=== PATIENT | female | born 1985 | race Two or more races ===

== ENCOUNTER 2020-02-08 12:34 | Outpatient (REF) | payer OTHER, SELFPAY | END 2020-02-08 12:35 | disposition home or self-care (01) | LOC: HO.LAB 12:34 | PROVIDERS: PCP Internal Medicine; Visit Provider Internal Medicine | DX: Z20.828 Contact with and (suspected) exposure to other viral communicable diseases (principal) | CPT/HCPCS: 87635 ==

== ENCOUNTER 2020-02-21 14:02 | Outpatient (REF) | payer OTHER, SELFPAY | END 2020-02-21 14:03 | disposition home or self-care (01) | LOC: HO.LAB 14:02 | PROVIDERS: PCP Internal Medicine; Visit Provider Internal Medicine | DX: Z20.828 Contact with and (suspected) exposure to other viral communicable diseases (principal) | CPT/HCPCS: 87635 ==

== ENCOUNTER 2020-03-13 16:29 | Outpatient (REF) | payer OTHER, SELFPAY | END 2020-03-13 16:30 | disposition home or self-care (01) | LOC: HO.LAB 16:29 | PROVIDERS: PCP Internal Medicine; Visit Provider Internal Medicine | DX: Z20.828 Contact with and (suspected) exposure to other viral communicable diseases (principal) | CPT/HCPCS: C9803; U0003 ==

== ENCOUNTER → 2020-03-19 10:10 | Outpatient (BNVA) | payer OTHER, SELFPAY | PROVIDERS: PCP Internal Medicine; Visit Provider Advanced Practice Midwife | DX: Z30.46 Encounter for surveillance of implantable subdermal contraceptive (principal) | CPT/HCPCS: 11982 ==

== ENCOUNTER 2020-05-05 09:25 | Outpatient (REF) | payer OTHER, SELFPAY ==
[2020-05-06 09:38] LABS: BV Int Neg Control Negative (Negative); BV Int Pos Control Positive (Positive)
[2020-05-06 15:44] LABS: C. trachomatis RNA TMA NOT DETECTED (NOT DETECTED); N. gonorrhoeae RNA TMA NOT DETECTED (NOT DETECTED)
== END 2020-05-05 09:26 | disposition home or self-care (01) ==
LOC: HO.LAB 09:25
PROVIDERS: PCP Internal Medicine; Visit Provider Advanced Practice Midwife
DX: Z20.2 Contact with and (suspected) exposure to infections with a predominantly sexual mode of transmission (principal); Z32.02 Encounter for pregnancy test, result negative; N90.7 Vulvar cyst; F17.210 Nicotine dependence, cigarettes, uncomplicated
CPT/HCPCS: 36415; 81025; 87480; 87491; 87510; 87591; 87660

== ENCOUNTER 2020-05-22 14:55 | Emergency (ER) | payer OTHER, SELFPAY ==
[2020-05-22 15:34] VITALS: BP 106/56; PULSE 63; RESP 16; TEMP 36.7; O2SAT 98; BMI 34.9
--- NOTE | 2020-05-22 15:45 | XR_ITS ---
EXAMINATION: XR ANKLE, RIGHT XR FOOT, RIGHT CLINICAL INFORMATION: Trauma, pain COMPARISON: None TECHNIQUE: 2 views right ankle, 2 views right foot, and a lateral view of the combined right ankle and foot are obtained for a total of 5 views. FINDINGS: There is no fracture or dislocation or destructive process. The malleoli are intact and the ankle mortise is symmetric. No osteochondral lesion seen talar dome. The subtalar joint is unremarkable. The retrocalcaneal recess is preserved. There is small to moderate posterior calcaneal spur. The midfoot and forefoot show no fracture or dislocation or arthropathy. XR/XR ankle RT min 3V IMPRESSION: 1. No fracture or dislocation. 2. Posterior calcaneal spur.
--- NOTE | 2020-05-22 15:45 | XR_ITS ---
EXAMINATION: XR ANKLE, RIGHT XR FOOT, RIGHT CLINICAL INFORMATION: Trauma, pain COMPARISON: None TECHNIQUE: 2 views right ankle, 2 views right foot, and a lateral view of the combined right ankle and foot are obtained for a total of 5 views. FINDINGS: There is no fracture or dislocation or destructive process. The malleoli are intact and the ankle mortise is symmetric. No osteochondral lesion seen talar dome. The subtalar joint is unremarkable. The retrocalcaneal recess is preserved. There is small to moderate posterior calcaneal spur. The midfoot and forefoot show no fracture or dislocation or arthropathy. XR/XR foot RT min 3V IMPRESSION: 1. No fracture or dislocation. 2. Posterior calcaneal spur.
--- NOTE | 2020-05-22 15:48 | ED_ITS ---
HPI - Extremity Injury (Lower) General Chief Complaint: Extremity Injury, Lower Stated Complaint: ankle pain Time Seen by Provider: 05/22/20 15:45 History of Present Illness HPI Narrative: Patient complains of right ankle pain and swelling after twisting it walking yesterday, no numbness no weakness no paresthesia no other injury no head injury no neck injury no back injury Related Data Home Medications Medication Instructions Recorded Confirmed cyclobenzaprine 10 mg tablet 10 mg PO BEDTIME 02/27/20 05/05/20 naproxen 500 mg tablet 500 mg PO BID 02/27/20 05/05/20 Previous Rx's Medication Instructions Recorded trazodone 50 mg tablet 50 mg PO BEDTIME PRN 30 Days #30 02/27/20 tab norethindrone (contraceptive) 0.35 0.35 mg PO DAILY #30 tab 05/05/20 mg tablet cane #1 ea 05/22/20 ibuprofen 600 mg PO Q6H PRN #20 tab 05/22/20 Allergies Allergy/AdvReac Type Severity Reaction Status Date / Time No Known Allergies Allergy Verified 03/19/20 10:31 [No Known Allergies*] Review of Systems Review of Systems: Positive right ankle pain and swelling Negative no fever no chills no dizziness no weakness no fainting no headache no neck pain no back pain no numbness no weakness no paresthesias Yes all other sy stems are reviewed and are negative PMFSH Past Medical History Source: nursing notes reviewed Medical History Chronic fatigue Depression with anxiety Insomnia Muscle spasm Obese Smoker Surgical History History of section Family History Family History Father Lung cancer Liver cancer Mother Diabetes Brother Aortic heart murmur Maternal Aunt Uterine cancer Breast cancer Social History Social History Alcohol intake: current Alcohol intake frequency: a few times a month Alcohol type: wine Smoking Status: Current every day smoker Tobacco Type: Cigarette Cigarettes Per Day: 10 Years Smoked: 20 Use of substances other than those prescribed or required for medical reasons: No Substance Use Type: Marijuana Advance Directives: No Advance Directives Information Provided: Yes Sexual orientation: Straight/Heterosexual Physical Exam Vital Signs: Vital Signs: Last Vital Signs Temp 98.1 F 05/22/20 15:34 Pulse 63 05/22/20 15:34 Resp 16 05/22/20 15:34 BP 106/56 L 05/22/20 15:34 Pulse Ox 98 05/22/20 15:34 Body Mass Index 34.9 General appearance comfortable relax no distress Normocephalic atraumatic Neck supple nontender Respiratory no distress Extremities right ankle has lateral ecchymosis, swelling, no deformity, ne urovascular intact and skin is intact no redness no warmth Skin no rashes Neuro no focal deficit, ambulating with a limp Course Course Course Narrative: X-rays of ankle and foot were negative Patient refused crutches and was able to ambulate with a limp Discharge Plan Discharge Clinical Impression: Right ankle sprain Qualifiers: Encounter type: initial encounter Involved ligament of ankle: unspecified ligament Qualified Code(s): S93.401A - Sprain of unspecified ligament of right ankle, initial encounter Patient Disposition: Home, Self-Care Additional Instructions: X-rays did not show any broken bone Follow with her doctor or orthopedist in 1 week if not better Return any concerns Prescriptions: New (DME) cane Device See Rx Instructions .ROUTE .MEDSUPPLY Qty: 1 RF: 0 ibuprofen 600 mg tablet 600 mg PO Q6H PRN (Reason: pain) Qty: 20 RF: 0 No Action naproxen 500 mg tablet 500 mg PO BID RF: 0 cyclobenzaprine 10 mg tablet 10 mg PO BEDTIME RF: 0 trazodone 50 mg tablet 50 mg PO BEDTIME PRN (Reason: sleep) 30 Days Qty: 30 RF: 6 norethindrone (contraceptive) [Jovana] 0.35 mg tablet 0.35 mg PO DAILY Qty: 30 RF: 11 Referrals: Alonso Sanches MD [Physician] - 10 days (Right ankle injury) Stand Alone Forms: Work/School Release
== END 2020-05-22 16:54 | disposition home or self-care (01) ==
PROVIDERS: Emergency Provider Emergency Medicine Emergency Medical Services; PCP Internal Medicine
DX: S93.401A Sprain of unspecified ligament of right ankle, initial encounter (principal); M25.571 Pain in right ankle and joints of right foot; X50.1XXA Overexertion from prolonged static or awkward postures, initial encounter; Y93.01 Activity, walking, marching and hiking; Y92.9 Unspecified place or not applicable; Y99.9 Unspecified external cause status; F17.200 Nicotine dependence, unspecified, uncomplicated; Z71.6 Tobacco abuse counseling; Z79.899 Other long term (current) drug therapy
CPT/HCPCS: 73610; 73630; 99283

== ENCOUNTER 2020-07-07 19:13 | Emergency (ER) | payer OTHER, SELFPAY ==
--- NOTE | ~2020-07-07 | US_ITS ---
EXAMINATION: US ABDOMEN LIMITED CLINICAL INFORMATION: Right upper quadrant pain, rule out acute cholecystitis. COMPARISON: 05/09/2018 TECHNIQUE: Real-time imaging of the right upper quadrant abdominal viscera. FINDINGS: PANCREAS: The visualized proximal portion of the pancreas is unremarkable. The distal portion is obscured secondary to overlying bowel gas. LIVER: The liver is normal in size. The liver contour is normal. Parenchymal echogenicity is normal. No focal hepatic lesion. There is no intrahepatic biliary duct dilatation seen. GALLBLADDER: The gallbladder appears slightly contracted, in keeping with reported nonfasting state. No evidence of stones, sludge, polyps, wall thickening or pericholecystic fluid. COMMON BILE DUCT: Normal in caliber measuring 0.2 cm in diameter. RIGHT KIDNEY: No hydronephrosis. No renal calculi or focal parenchymal lesions. The kidney measures 11.8 cm in maximum dimension. FREE FLUID: None. US/US abdomen limited IMPRESSION: Slightly contracted gallbladder, without gallstones or other findings to suggest cholecystitis.
[2020-07-07 21:04] VITALS: BP 121/72; PULSE 65; RESP 18; TEMP 36.9; O2SAT 99; BMI 32.8
[2020-07-07 22:02] LABS: MANUAL DIFF FLAG NO
[2020-07-07 22:04] LABS: Basophils Absolute Auto 0.1 X10*3/uL (0.0-0.2); Basophils Percent Auto 0.6 % (0-2); Eosinophils Absolute Auto 0.4 X10*3/uL (0.0-0.4); Hematocrit 45.4 % (37-47); Hemoglobin 15.4 g/dl (12.0-16.0); Imm Gran Abs Auto 0.03 X10*3/uL (0.00-0.03); Imm Gran Pct Auto 0.3 % (0.0-0.4); Lymphocytes Absolute Auto 3.9 X10*3/uL (1.2-4.9); Lymphocytes Percent Auto 32.6 % (20-40); Mean Corpuscular HGB Conc 33.9 g/dl (31.0-35.0); Mean Corpuscular Hemoglobin 31.8 pg (27.0-33.0); Mean Corpuscular Volume 93.6 fL (80-98); Mean Platelet Volume 11.4 fL (9.4-12.3); Monocytes Absolute Auto 0.7 X10*3/uL (0.1-1.2); Monocytes Percent Auto 5.6 % (2-11); Neutrophils Absolute Auto 6.8 X10*3/uL (2.0-8.3); Neutrophils Percent Auto 57.9 % (45-73); Platelet Count 290 X10*3/uL (160-400); Red Blood Count 4.85 X10*6/uL (4.20-5.50); Red Cell Distribution Width 12.9 % (11.0-16.0); White Blood Count 11.8 X10*3/uL (4.8-10.8)
[2020-07-07 22:13] LABS: Glucose Urine UA NEG (NEG); Leukocyte Esterase Urine NEG (NEG); Nitrite Urine NEG (NEG); PH 6.5 (5.0-8.0); Urine Blood NEG (NEG); Urine Ketones NEG (NEG); Urine Protein NEG (NEG-TRACE)
[2020-07-07 22:17] LABS: Appearance Urine CLEAR; Color Urine YELLOW
[2020-07-07 22:18] LABS: UPreg QC Valid YES; Urine Pregnancy NEGATIVE (NEGATIVE)
[2020-07-07 22:23] LABS: Alanine Aminotransferase 21 U/L (0-31); Albumin Level 4.3 g/dL (3.5-5.0); Alkaline Phosphatase 103 U/L (39-117); Anion Gap 15 (12-20); Aspartate Amino Transferase 20 U/L (5-31); Bilirubin Direct 0.2 mg/dL (0.0-0.5); Bilirubin Total 0.4 mg/dL (0.0-1.0); Blood Urea Nitrogen 13 mg/dL (9-16); Carbon Dioxide 25 mmol/L (22-29); Chloride 104 mmol/L (96-108); Creatinine Clr Calc Pharmacy 99.5; Estimated Glomerular Filt Rate > 60; Glucose Random 126 mg/dL (60-115); Lipase 46 U/L (8-78); Potassium 3.9 mmol/L (3.3-5.1); Sodium 140 mmol/L (135-145); Total Protein 6.8 g/dL (6.5-8.0)
[2020-07-08] VITALS: BP 112/68; PULSE 56; RESP 18; TEMP 37.1; O2SAT 94
--- NOTE | 2020-07-08 00:13 | ED.ABDPAIN ---
HPI - Abdominal Pain General Chief Complaint: Abdominal Pain Stated Complaint: ABD PAIN Time Seen by Provider: 07/08/20 00:01 Source: patient Mode of arrival: ambulatory Limitations: no limitations History of Present Illness HPI narrative: 35-year-old female with a past will history of insomnia, depression, anxiety, asthma here with complaints of upper abdominal pain with vomiting times several days. No diarrhea, constipation, urinary symptoms, fevers, chills. Pain occurs after eating MD elicited complaint: abdominal pain Related Data Home Medications Medication Instructions Recorded Confirmed naproxen 500 mg tablet 500 mg PO BID 02/27/20 05/05/20 Previous Rx's Medication Instructions Recorded trazodone 50 mg tablet 50 mg PO BEDTIME PRN 30 Days #30 02/27/20 tab norethindrone (contraceptive) 0.35 0.35 mg PO DAILY #30 tab 05/05/20 mg tablet cane #1 ea 05/22/20 ibuprofen 600 mg PO Q6H PRN #20 tab 05/22/20 albuterol sulfate 90 mcg/actuation 2 puff INHALATION Q6H PRN 10 Days 05/26/20 aerosol inhaler #6.7 g cyclobenzaprine 10 mg tablet 10 mg PO BEDTIME 30 Days #30 tab 05/26/20 ibuprofen 800 mg tablet 800 mg PO Q8H PRN 10 Days #30 tab 05/26/20 omeprazole 40 mg PO DAILY #30 cap 07/08/20 sucralfate [Carafate] 1 g PO TIDAC #20 tab 07/08/20 Allergies Allergy/AdvReac Type Severity Reaction Status Date / Time No Known Allergies Allergy Verified 07/07/20 21:03 [No Known Allergies*] Review of Systems Review of Systems Yes all other systems are reviewed and are negative Constitutional: Reports no additional constitutional complaints, Denies body ache(s), Denies chills, Denies fever(s), Denies headache(s) and Denies weakness Eyes: Reports no additional eye complaints and Denies change in vision Reports system reviewed and no additional complaints, except as documented, Denies dizziness, Denies headache(s), Denies nasal congestion, Denies nasal discharge and Denies neck pain Cardiovascular: Reports no additional cardiovascular complaints, Denies chest pain, Denies leg edema and Denies dyspnea Respiratory: Reports no additional respiratory complaints, Denies cough and Denies dyspnea Gastrointestinal: Reports no additional gastrointestinal complaints, Reports abdominal pain, Denies diarrhea, Reports nausea and Reports vomiting Genitourinary: Reports no additional female genitourinary complaints and Denies urinary incontinence Musculoskeletal: Reports no additional musculoskeletal complaints, Denies back pain, Denies arthralgias, Denies joint swelling, Denies neck pain, Denies numbness and Denies tingling Skin/Breast: Reports system reviewed and no additional complaints, except as docu and Denies rash Reports system reviewed and no additional complaints, except as documented, Denies Abnormal speech present, Denies dizziness, Denies headache(s), Denies numbness, Denies tingling and Denies weakness Physical Exam Vital Signs: Vital Signs: Last Vital Signs Temp 98.8 F 07/08/20 00:00 Pulse 56 07/08/20 00:00 Resp 18 07/08/20 00:00 BP 112/68 07/08/20 00:00 Pulse Ox 94 07/08/20 00:00 Body Mass Index 32.8 Const: General: cooperative, healthy appearing, comfortable and no acute distress Orientation/consciousness: patient oriented x3 Limitations: no limitations HENMT: Head: Yes normal to inspection Ears: hearing grossly normal bilaterally General nose exam: Normal external nose present Face and sinus: Yes normal facial exam Mouth: Normal oral and palatal mucosa present Throat: Yes posterior oropharynx normal Eyes: General: appearance normal, both eyes and all related structures Pupils: Equal, round and reactive pupils present Neck: Neck: Yes normal visual inspection Chest: Chest palpation & inspection: normal inspection of the chest Resp: Effort & Inspection: normal respiratory effort Auscultation: clear to auscultation bilaterally Cardio: Rate: regular rate Rhythm: regular rhythm Peripheral pulses: Peripheral pulses 2+ throughout GI: Inspection: Yes normal to inspection Palpation (GI): Soft to palpation and Tenderness to palpation present (GI) (mild epigastric/RUQ tenderness. No rebound or guarding) Auscultation: normal bowel sounds Back/Spine/Pelvis: Thoracic/Lumbar Spine: thoracic and lumbar spine normal to inspection Skin: General skin exam: no rashes or lesions noted Neuro: General: patient oriented x3, no focal motor deficits and normal sensation to monofilament Cranial nerves: Yes Equal, round and reactive pupils present Cognition (Neuro): normal cognition Speech: No Abnormal speech present Gait exam (Neuro): Normal gait present Motor exam (neuro): 5/5 motor strength present throughout Extrem: General: Yes normal to inspection Course Course Course Narrative: 35 yo female here with upper AP s/p eating with associated vomiting, Will need labs, UA, abdominal US. 0140-ultrasound negative. Labs unremarkable. Pain is resolved with GI cocktail. Likely gastritis. Reviewed worrisome signs symptoms when to return to the emergency department. Discharge home. MDM - Abdominal Pain MDM Narrative Medical decision making narrative: Gastritis, GERD, pancreatitis, cholecystitis, cholelithiasis Medical Records Attestation: I reviewed the patient's medical records. Lab Data Attestation: I reviewed the patient's lab results. Result diagrams: 07/07/20 21:42 07/07/20 21:42 Labs: Lab Results 07/07/20 07/07/20 07/07/20 Range/Units 21:42 21:42 21:51 WBC 11.8 H (4.8-10.8) X10*3/uL RBC 4.85 (4.20-5.50) X10*6/uL Hgb 15.4 (12.0-16.0) g/dl Hct 45.4 (37-47) % MCV 93.6 (80-98) fL MCH 31.8 (27.0-33.0) pg MCHC 33.9 (31.0-35.0) g/dl RDW 12.9 (11.0-16.0) % Plt Count 290 (160-400) X10*3/uL MPV 11.4 (9.4-12.3) fL Immature Gran % (Auto) 0.3 (0.0-0.4) % Neut % (Auto) 57.9 (45-73) % Lymph % (Auto) 32.6 (20-40) % [place] % (Auto) 5.6 (2-11) % Eos % (Auto) 3.0 (0-4) % Baso % (Auto) 0.6 (0-2) % Lymph # (Auto) 3.9 (1.2-4.9) X10*3/uL [place] # (Auto) 0.7 (0.1-1.2) X10*3/uL Eos # (Auto) 0.4 (0.0-0.4) X10*3/uL Baso # (Auto) 0.1 (0.0-0.2) X10*3/uL Abs Immat Gran (auto) 0.03 (0.00-0.03) X10*3/uL Absolute Neuts (auto) 6.8 (2.0-8.3) X10*3/uL Absolute Nucleated RBC 0.000 (0.0-0.012) X10*3/uL Nucleated RBC % (auto) 0.0 (0.0-0.2) /100WBC Sodium 140 (135-145) mmol/L Potassium 3.9 (3.3-5.1) mmol/L Chloride 104 (96-108) mmol/L Carbon Dioxide 25 (22-29) mmol/L Anion Gap 15 (12-20) BUN 13 (9-16) mg/dL Creatinine 0.72 (0.5-1.4) mg/dL Estim Creat Clear Calc 99.5 Estimated GFR > 60 Random Glucose 126 H (60-115) mg/dL Calcium 9.0 (8.4-10.2) mg/dL Total Bilirubin 0.4 (0.0-1.0) mg/dL Direct Bilirubin 0.2 (0.0-0.5) mg/dL AST 20 (5-31) U/L ALT 21 (0-31) U/L Alkaline Phosphatase 103 (39-117) U/L Total Protein 6.8 (6.5-8.0) g/dL Albumin 4.3 (3.5-5.0) g/dL Lipase 46 (8-78) U/L Urine Color Urine Appearance Urine pH (5.0-8.0) Ur Specific [place] (1.005-1.025) Urine Protein (NEG-TRACE) MG/DL Urine Glucose (UA) (NEG) MG/DL Urine Ketones (NEG) MG/DL Urine Blood (NEG) Urine Nitrite (NEG) Ur Leukocyte Esterase (NEG) Urine Test NEGATIVE (NEGATIVE) 07/07/20 Range/Units 21:52 WBC (4.8-10.8) X10*3/uL RBC (4.20-5.50) X10*6/uL Hgb (12.0-16.0) g/dl Hct (37-47) % MCV (80-98) fL MCH (27.0-33.0) pg MCHC (31.0-35.0) g/dl RDW (11.0-16.0) % Plt Count (160-400) X10*3/uL MPV (9.4-12.3) fL Immature Gran % (Auto) (0.0-0.4) % Neut % (Auto) (45-73) % Lymph % (Auto) (20-40) % [place] % (Auto) (2-11) % Eos % (Auto) (0-4) % Baso % (Auto) (0-2) % Lymph # (Auto) (1.2-4.9) X10*3/uL [place] # (Auto) (0.1-1.2) X10*3/uL Eos # (Auto) (0.0-0.4) X10*3/uL Baso # (Auto) (0.0-0.2) X10*3/uL Abs Immat Gran (auto) (0.00-0.03) X10*3/uL Absolute Neuts (auto) (2.0-8.3) X10*3/uL Absolute Nucleated RBC (0.0-0.012) X10*3/uL Nucleated RBC % (auto) (0.0-0.2) /100WBC Sodium (135-145) mmol/L Potassium (3.3-5.1) mmol/L Chloride (96-108) mmol/L Carbon Dioxide (22-29) mmol/L Anion Gap (12-20) BUN (9-16) mg/dL Creatinine (0.5-1.4) mg/dL Estim Creat Clear Calc Estimated GFR Random Glucose (60-115) mg/dL Calcium (8.4-10.2) mg/dL Total Bilirubin (0.0-1.0) mg/dL Direct Bilirubin (0.0-0.5) mg/dL AST (5-31) U/L ALT (0-31) U/L Alkaline Phosphatase (39-117) U/L Total Protein (6.5-8.0) g/dL Albumin (3.5-5.0) g/dL Lipase (8-78) U/L Urine Color YELLOW Urine Appearance CLEAR Urine pH 6.5 (5.0-8.0) Ur Specific [place] 1.020 (1.005-1.025) Urine Protein NEG (NEG-TRACE) MG/DL Urine Glucose (UA) NEG (NEG) MG/DL Urine Ketones NEG (NEG) MG/DL Urine Blood NEG (NEG) Urine Nitrite NEG (NEG) Ur Leukocyte Esterase NEG (NEG) Urine Test (NEGATIVE) Imaging Data US - abdomen: Attestation: I personally reviewed and interpreted this imaging study as follows: Radiologist's impression: EXAMINATION: US ABDOMEN LIMITED CLINICAL INFORMATION: Right upper quadrant pain, rule out acute cholecystitis. COMPARISON: 05/09/2018 TECHNIQUE: Real-time imaging of the right upper quadrant abdominal viscera. FINDINGS: PANCREAS: The visualized proximal portion of the pancreas is unremarkable. The distal portion is obscured secondary to overlying bowel gas. LIVER: The liver is normal in size. The liver contour is normal. Parenchymal echogenicity is normal. No focal hepatic lesion. There is no intrahepatic biliary duct dilatation seen. GALLBLADDER: The gallbladder appears slightly contracted, in keeping with reported nonfasting state. No evidence of stones, sludge, polyps, wall thickening or pericholecystic fluid. COMMON BILE DUCT: Normal in caliber measuring 0.2 cm in diameter. RIGHT KIDNEY: No hydronephrosis. No renal calculi or focal parenchymal lesions. The kidney measures 11.8 cm in maximum dimension. FREE FLUID: None. US/US abdomen limited IMPRESSION: Slightly contracted gallbladder, without gallstones or other findings to suggest cholecystitis. Discharge Plan Discharge Clinical Impression: Gastritis Patient Disposition: Home, Self-Care Instructions: Gastritis (ED) Additional Instructions: [place] diet Follow-up with GI as discussed Prescriptions: New omeprazole 40 mg capsule,delayed release(DR/EC) 40 mg PO DAILY Qty: 30 RF: 0 sucralfate [Carafate] 1 gram tablet 1 g PO TIDAC Qty: 20 RF: 0 No Action (DME) cane Device See Rx Instructions .ROUTE .MEDSUPPLY Qty: 1 RF: 0 ibuprofen 600 mg tablet 600 mg PO Q6H PRN (Reason: pain) Qty: 20 RF: 0 naproxen 500 mg tablet 500 mg PO BID RF: 0 trazodone 50 mg tablet 50 mg PO BEDTIME PRN (Reason: sleep) 30 Days Qty: 30 RF: 6 cyclobenzaprine 10 mg tablet 10 mg PO BEDTIME 30 Days Qty: 30 RF: 0 ibuprofen 800 mg tablet 800 mg PO Q8H PRN (Reason: pain) 10 Days Qty: 30 RF: 0 albuterol sulfate 90 mcg/actuation HFA aerosol inhaler 2 puff inhalation Q6H PRN (Reason: shortness of breath or wheezing) 10 Days Qty: 6.7 RF: 0 norethindrone (contraceptive) [Jovana] 0.35 mg tablet 0.35 mg PO DAILY Qty: 30 RF: 11 Referrals: Ashvin Mustafa MD [Physician] - 2 days Stand Alone Forms: Work/School Release [facility] Past Medical History Attestation statement: The following information was validated with the patient. Source: old records reviewed and nursing notes reviewed Medical History Ankle pain Chronic fatigue Depression with anxiety Insomnia Muscle spasm Obese Smoker Surgical History History of section Family History Family History Father Lung cancer Liver cancer Mother Diabetes Brother Aortic heart murmur Maternal Aunt Uterine cancer Breast cancer Social History Social History Alcohol intake: current Alcohol intake frequency: a few times a week Alcohol type: beer and wine Smoking Status: Current every day smoker Tobacco Type: Cigarette Cigarettes Per Day: 10 Years Smoked: 20 Smoked in Last 30 Days: Yes Use of substances other than those prescribed or required for medical reasons: No Substance Use Type: Marijuana Advance Directives: No Sexual orientation: Straight/Heterosexual
[2020-07-08] MEDS: Lidocaine HCl Viscous 2 % 15 ML SOLUTION MUCOUS MEM (00:22)
[2020-07-08] MEDS: Magnesium Hydrox/Alum Hydrox 30 ML ORAL.SUSP PO (00:22)
== END 2020-07-08 01:48 | disposition home or self-care (01) ==
PROVIDERS: Emergency Provider Internal Medicine; PCP Internal Medicine
DX: K29.70 Gastritis, unspecified, without bleeding (principal); R10.13 Epigastric pain; Z79.899 Other long term (current) drug therapy
CPT/HCPCS: 36415; 76705; 80048; 80076; 81003; 81025; 83690; 85025; 99284

== ENCOUNTER 2021-01-23 19:31 | Emergency (ER) | payer OTHER, SELFPAY ==
--- NOTE | ~2021-01-23 | XR_ITS ---
EXAMINATION: PORTABLE CHEST 1 VIEW CLINICAL INFORMATION: CP . COMPARISON: 05/04/2017. TECHNIQUE: Portable frontal view of the chest was obtained. FINDINGS: The lungs are mildly hyperinflated. No focal infiltrate, effusion, edema, or pneumothorax. Cardiac and mediastinal silhouettes are within normal limits for technique. No acute bony abnormality seen. XR/XR chest 1V IMPRESSION: Mildly hyperinflated but otherwise no evidence of acute disease.
--- NOTE | 2021-01-23 07:30 | ECG_ITS ---
Test Reason : CHEST PAIN Blood Pressure : / mmHG Vent. Rate : 067 BPM Atrial Rate : 067 BPM P-R Int : 128 ms QRS Dur : 094 ms QT Int : 390 ms P-R-T Axes : 035 085 049 degrees QTc Int : 412 ms Normal sinus rhythm Normal ECG No previous ECGs available Referred By: Pedro Nava Electronically Signed By:FAISAL CASIANO
[2021-01-23 19:40] VITALS: BP 137/84; PULSE 70; RESP 16; TEMP 36.6; O2SAT 98; BMI 32.2
[2021-01-23 21:06] LABS: MANUAL DIFF FLAG NO
[2021-01-23 21:08] LABS: Basophils Absolute Auto 0.1 X10*3/uL (0.0-0.2); Basophils Percent Auto 0.4 % (0-2); Eosinophils Absolute Auto 0.4 X10*3/uL (0.0-0.4); Eosinophils Percent Auto 3.2 % (0-4); Hemoglobin 15.5 g/dl (12.0-16.0); Imm Gran Abs Auto 0.04 X10*3/uL (0.00-0.03); Imm Gran Pct Auto 0.3 % (0.0-0.4); Lymphocytes Absolute Auto 1.9 X10*3/uL (1.2-4.9); Lymphocytes Percent Auto 16.2 % (20-40); Mean Corpuscular HGB Conc 33.7 g/dl (31.0-35.0); Mean Corpuscular Hemoglobin 32.6 pg (27.0-33.0); Mean Corpuscular Volume 96.6 fL (80-98); Mean Platelet Volume 10.1 fL (9.4-12.3); Monocytes Absolute Auto 0.8 X10*3/uL (0.1-1.2); Monocytes Percent Auto 7.2 % (2-11); Neutrophils Absolute Auto 8.4 X10*3/uL (2.0-8.3); Neutrophils Percent Auto 72.7 % (45-73); Platelet Count 256 X10*3/uL (160-400); Red Blood Count 4.76 X10*6/uL (4.20-5.50); Red Cell Distribution Width 13.1 % (11.0-16.0); White Blood Count 11.6 X10*3/uL (4.8-10.8)
[2021-01-23 21:25] LABS: COVID-19 Test Negative (Negative)
[2021-01-23 21:26] LABS: Anion Gap 13 (12-20); Blood Urea Nitrogen 13 mg/dL (9-16); Calcium 9.4 mg/dL (8.4-10.2); Carbon Dioxide 25 mmol/L (22-29); Chloride 106 mmol/L (96-108); Creatinine Clr Calc Pharmacy 99.9; Estimated Glomerular Filt Rate > 60; Glucose Random 107 mg/dL (60-115); Potassium 4.2 mmol/L (3.3-5.1); Sodium 140 mmol/L (135-145)
[2021-01-23 21:30] LABS: B Type Natriuretic Peptide 28 pg/mL (<100); Troponin-I High Sensitivity < 3.5 ng/L (<3.5-17.0)
--- NOTE | 2021-01-23 21:53 | ED_ITS ---
HPI - SOB/Dyspnea General Chief Complaint: Dyspnea Stated Complaint: diff breathing Time Seen by Provider: 01/23/21 21:50 Source: patient Mode of arrival: ambulatory Limitations: no limitations History of Present Illness HPI Narrative: 35-year-old female came in for evaluation of shortness of breath. Symptoms started since yesterday, patient feels chest tightness and wheezing, productive cough with yellow sputum, no fever, no chills, patient feels bilateral chest pain with coughing. Patient recently traveled from [place] (10 days ago) patient declined any lower extremity swelling or tenderness. Patient is known history of asthma. Related Data Previous Rx's Medication Instructions Recorded norethindrone (contraceptive) 0.35 0.35 mg PO DAILY #30 tab 05/05/20 mg tablet (Jovana) cane #1 ea 05/22/20 ibuprofen 800 mg tablet 800 mg PO Q8H PRN 10 Days #30 tab 05/26/20 cyclobenzaprine 10 mg tablet 10 mg PO BEDTIME 30 Days #30 tab 08/27/20 sucralfate 1 gram tablet (Carafate) 1 g PO TIDAC #20 tab 08/27/20 albuterol sulfate 90 mcg/actuation 2 puff INHALATION Q6H PRN 10 Days 09/20/20 aerosol inhaler #6.7 g omeprazole 40 mg capsule,delayed 40 mg PO DAILY #30 cap 09/24/20 release escitalopram oxalate 5 mg tablet 5 mg PO DAILY 90 Days #90 tab 11/23/20 naproxen 500 mg tablet 500 mg PO BID 90 Days #180 tab 11/23/20 albuterol sulfate 90 mcg/actuation 1 inh INHALATION QID PRN #8.5 g 01/23/21 aerosol inhaler prednisone 20 mg tablet 20 mg PO BID #10 tab 01/23/21 Allergies Allergy/AdvReac Type Severity Reaction Status Date / Time No Known Allergies Allergy Verified 08/27/20 14:59 [No Known Allergies*] Review of Systems Review of Systems: All other systems are reviewed and are negative Constitutional: Reports as per HPI and Reports no additional constitutional complaints Eyes: Reports as per HPI and Reports no additional eye complaints Reports system reviewed and no additional complaints, except as documented Cardiovascular: Reports as per HPI and Reports no additional cardiovascular complaints Respiratory: Reports as per HPI and Reports no additional respiratory complaints Gastrointestinal: Reports as per HPI and Reports no additional gastrointestinal complaints Genitourinary: Reports no additional female genitourinary complaints Musculoskeletal: Reports no additional musculoskeletal complaints Skin/Breast: Reports system reviewed and no additional complaints, except as docu Psychiatric: Reports no additional psychiatric complaints Endocrine: Reports no additional endocrine complaints Hematologic/Lymphatic: Reports no additional hematologic/lymphatic complaints Allergic/Immunologic: Reports no additional allergic/immunologic complaints Reports system reviewed and no additional complaints, except as documented and Reports Abnormal speech present [facility] Past Medical History Medical History Ankle pain Chronic fatigue Depression with anxiety GERD (gastroesophageal reflux disease) Insomnia Mild asthma Muscle spasm Obese Smoker Surgical History History of section Family History Family History Father Lung cancer Liver cancer Mother Diabetes Brother Aortic heart murmur Maternal Aunt Uterine cancer Breast cancer Social History Social History Alcohol intake: current Alcohol intake frequency: a few times a month Alcohol type: beer and wine Cigarettes Per Day: 7 Years Smoked: 20 Substance Use Type: Marijuana Advance Directives: No Advance Directives Information Provided: Yes Sexual orientation: Straight/Heterosexual Physical Exam Vital Signs: Vital Signs: Last Vital Signs Temp 97.8 F 01/23/21 19:40 Pulse 67 01/23/21 22:08 Resp 16 01/23/21 19:40 BP 137/84 01/23/21 19:40 Pulse Ox 98 01/23/21 19:40 Body Mass Index 32.2 Vital signs have been reviewed as appeared to be correct. Blood pressure normal. Heart rate normal. Respiration rate normal. Temperature normal. Oxygen saturation normal. Appearance: Alert. Oriented X3. No acute distress. Head: Normal external exam. Normocephalic. Atraumatic. No Chow signs noted. No raccoon eyes noted Eyes: PERRLA. EOMI. Conjunctiva and sclera normal. Eyelids normal. ENT: TM's Normal. Pharynx normal. Uvula midline. Moist mucous membranes. No trismus noted. No drooling noted. No muffled voice noted. Neck: Normal inspection. Neck supple. FROM. No adenopathy. Thyroid Normal. No meningeal signs. No neck mass noted. CVS: Normal heart rate and rhythm. Heart sound normal. No murmurs noted. Pulses normal throughout. Respiratory: No respiratory distress. Painless inspiration. Breath sounds normal. Diffuse mild expiratory wheezing, with prolonged expiratory phase. Bilateral chest point of tenderness at the mid axillary line. No accessory muscle usage noted or decreased air movement noted. Abdomen: Soft and nontender. Bowel sounds normal in all 4 quadrants. No distention noted. No organomegaly noted. No visible injury noted. Back: No CVA tenderness. Full range of motion noted. Skin: Skin warm and dry. Normal skin color. Normal skin turgor. No rashes/lesions/lacerations noted. Extremities: No lower extremity edema. Extremities exhibit normal range of motion. Extremities nontender. Neuro: Oriented X 3. Cranial nerve exam: II-XII are grossly intact No motor deficit. No sensory deficit. Reflexes normal. Course Course Course Narrative: Assessment and plan. 35-year-old female long history of smoking, known history, presented with wheezing and coughing. Check D-dimer rule out PE which is unlikely. bronchodilator and prednisone. MDM - SOB/Dyspnea Lab Data Attestation: I reviewed the patient's lab results. Result diagrams: 01/23/21 21:01 01/23/21 21:01 Labs: Lab Results 01/23/21 01/23/21 01/23/21 Range/Units 20:57 21:01 21:01 WBC 11.6 H (4.8-10.8) X10*3/uL RBC 4.76 (4.20-5.50) X10*6/uL Hgb 15.5 (12.0-16.0) g/dl Hct 46.0 (37-47) % MCV 96.6 (80-98) fL MCH 32.6 (27.0-33.0) pg MCHC 33.7 (31.0-35.0) g/dl RDW 13.1 (11.0-16.0) % Plt Count 256 (160-400) X10*3/uL MPV 10.1 (9.4-12.3) fL Immature Gran % (Auto) 0.3 (0.0-0.4) % Neut % (Auto) 72.7 (45-73) % Lymph % (Auto) 16.2 L (20-40) % [place] % (Auto) 7.2 (2-11) % Eos % (Auto) 3.2 (0-4) % Baso % (Auto) 0.4 (0-2) % Lymph # (Auto) 1.9 (1.2-4.9) X10*3/uL [place] # (Auto) 0.8 (0.1-1.2) X10*3/uL Eos # (Auto) 0.4 (0.0-0.4) X10*3/uL Baso # (Auto) 0.1 (0.0-0.2) X10*3/uL Abs Immat Gran (auto) 0.04 H (0.00-0.03) X10*3/uL Absolute Neuts (auto) 8.4 H (2.0-8.3) X10*3/uL Absolute Nucleated RBC 0.000 (0.0-0.012) X10*3/uL Nucleated RBC % (auto) 0.0 (0.0-0.2) /100WBC D-Dimer NG/ML Sodium 140 (135-145) mmol/L Potassium 4.2 (3.3-5.1) mmol/L Chloride 106 (96-108) mmol/L Carbon Dioxide 25 (22-29) mmol/L Anion Gap 13 (12-20) BUN 13 (9-16) mg/dL Creatinine 0.71 (0.5-1.4) mg/dL Estim Creat Clear Calc 99.9 Estimated GFR > 60 Random Glucose 107 (60-115) mg/dL Calcium 9.4 (8.4-10.2) mg/dL Troponin I High Sens (<3.5-17.0) ng/L B-Natriuretic Peptide (<100) pg/mL COVID-19 (NABILA) Negative (Negative) COVID-19 Clin Com See Note 01/23/21 01/23/21 Range/Units 21:01 21:58 WBC (4.8-10.8) X10*3/uL RBC (4.20-5.50) X10*6/uL Hgb (12.0-16.0) g/dl Hct (37-47) % MCV (80-98) fL MCH (27.0-33.0) pg MCHC (31.0-35.0) g/dl RDW (11.0-16.0) % Plt Count (160-400) X10*3/uL MPV (9.4-12.3) fL Immature Gran % (Auto) (0.0-0.4) % Neut % (Auto) (45-73) % Lymph % (Auto) (20-40) % [place] % (Auto) (2-11) % Eos % (Auto) (0-4) % Baso % (Auto) (0-2) % Lymph # (Auto) (1.2-4.9) X10*3/uL [place] # (Auto) (0.1-1.2) X10*3/uL Eos # (Auto) (0.0-0.4) X10*3/uL Baso # (Auto) (0.0-0.2) X10*3/uL Abs Immat Gran (auto) (0.00-0.03) X10*3/uL Absolute Neuts (auto) (2.0-8.3) X10*3/uL Absolute Nucleated RBC (0.0-0.012) X10*3/uL Nucleated RBC % (auto) (0.0-0.2) /100WBC D-Dimer < 200 NG/ML Sodium (135-145) mmol/L Potassium (3.3-5.1) mmol/L Chloride (96-108) mmol/L Carbon Dioxide (22-29) mmol/L Anion Gap (12-20) BUN (9-16) mg/dL Creatinine (0.5-1.4) mg/dL Estim Creat Clear Calc Estimated GFR Random Glucose (60-115) mg/dL Calcium (8.4-10.2) mg/dL Troponin I High Sens < 3.5 (<3.5-17.0) ng/L B-Natriuretic Peptide 28 (<100) pg/mL COVID-19 (NABILA) (Negative) COVID-19 Clin Com Imaging Data Chest x-ray: Radiologist's impression: Mildly hyperinflated but otherwise no evidence of acute disease. ? Discharge Plan Discharge Clinical Impression: Mild asthma Qualifiers: Asthma persistence: intermittent Asthma complication type: with acute exacerbation Qualified Code(s): J45.21 - Mild intermittent asthma with (acute) exacerbation Patient Disposition: Home, Self-Care Instructions: Asthma (ED) Prescriptions: New albuterol sulfate 90 mcg/actuation HFA aerosol inhaler 1 inh inhalation QID PRN (Reason: shortness of breath or wheezing) Qty: 8.5 RF: 0 prednisone 20 mg tablet 20 mg PO BID Qty: 10 RF: 0 No Action albuterol sulfate 90 mcg/actuation HFA aerosol inhaler 2 puff inhalation Q6H PRN (Reason: shortness of breath or wheezing) 10 Days Qty: 6.7 RF: 3 omeprazole 40 mg capsule,delayed release(DR/EC) 40 mg PO DAILY Qty: 30 RF: 6 naproxen 500 mg tablet 500 mg PO BID 90 Days Qty: 180 RF: 1 escitalopram oxalate 5 mg tablet 5 mg PO DAILY 90 Days Qty: 90 RF: 1 (DME) cane Device See Rx Instructions .ROUTE .MEDSUPPLY Qty: 1 RF: 0 ibuprofen 800 mg tablet 800 mg PO Q8H PRN (Reason: pain) 10 Days Qty: 30 RF: 0 cyclobenzaprine 10 mg tablet 10 mg PO BEDTIME 30 Days Qty: 30 RF: 0 sucralfate [Carafate] 1 gram tablet 1 g PO TIDAC Qty: 20 RF: 0 norethindrone (contraceptive) [Jovana] 0.35 mg tablet 0.35 mg PO DAILY Qty: 30 RF: 11 Referrals: Roxanne Abdalla MD [Primary Care Provider] - 2 days
[2021-01-23] MEDS: predniSONE 20 MG TABLET 40 MG PO (21:59)
[2021-01-23] MEDS: Albuterol/Iprat 2.5/0.5MG 3 ML AMPUL.NEB INHALE (22:06)
[2021-01-23] MEDS: Albuterol Sulfate (0.083%) 2.5 MG/3 ML VIAL.NEB INHALE (22:06)
[2021-01-23 22:08] VITALS: PULSE 67; O2SAT 96
[2021-01-23 22:15] LABS: D Dimer < 200 NG/ML
[2021-01-23 23:46] VITALS: BP 124/67; PULSE 70; RESP 16; TEMP 37; O2SAT 97
== END 2021-01-23 23:49 | disposition home or self-care (01) ==
PROVIDERS: Emergency Provider Emergency Medicine; PCP Internal Medicine
DX: J45.21 Mild intermittent asthma with (acute) exacerbation (principal); R06.02 Shortness of breath; F12.90 Cannabis use, unspecified, uncomplicated; F17.210 Nicotine dependence, cigarettes, uncomplicated; Z20.822 Contact with and (suspected) exposure to COVID-19; Z71.6 Tobacco abuse counseling; Z79.899 Other long term (current) drug therapy
CPT/HCPCS: 36415; 71045; 80048; 83880; 84484; 85025; 85379; 87635; 93005; 94640; 94644; 99284

== ENCOUNTER → 2021-03-12 13:08 | Outpatient (BNVA) | payer OTHER, SELFPAY | PROVIDERS: Visit Provider Obstetrics & Gynecology | DX: N90.7 Vulvar cyst (principal) | CPT/HCPCS: 56405; 99212 ==

== ENCOUNTER 2021-07-01 09:30 | Outpatient (REF) | payer OTHER, SELFPAY ==
[2021-07-01 10:00] LABS: MANUAL DIFF FLAG NO
[2021-07-01 10:30] LABS: Basophils Absolute Auto 0.1 X10*3/uL (0.0-0.2); Basophils Percent Auto 0.7 % (0-2); Eosinophils Absolute Auto 0.4 X10*3/uL (0.0-0.4); Eosinophils Percent Auto 6.2 % (0-4); Hematocrit 46.3 % (37.0-47.0); Hemoglobin 15.7 g/dl (12.0-16.0); Imm Gran Abs Auto 0.01 X10*3/uL (0.00-0.03); Imm Gran Pct Auto 0.1 % (0.0-0.4); Lymphocytes Absolute Auto 2.6 X10*3/uL (1.2-4.9); Lymphocytes Percent Auto 36.4 % (20-40); Mean Corpuscular HGB Conc 33.9 g/dl (31.0-35.0); Mean Corpuscular Hemoglobin 32.8 pg (27.0-33.0); Mean Corpuscular Volume 96.7 fL (80.0-98.0); Mean Platelet Volume 10.6 fL (9.4-12.3); Monocytes Absolute Auto 0.4 X10*3/uL (0.1-1.2); Monocytes Percent Auto 5.6 % (2-11); Neutrophils Absolute Auto 3.6 x10*3/uL (2.0-8.3); Platelet Count 279 X10*3/uL (160-400); Red Blood Count 4.79 X10*6/uL (4.20-5.50); Red Cell Distribution Width 12.5 % (11.0-16.0); White Blood Count 7.1 X10*3/uL (4.8-10.8)
[2021-07-01 11:38] LABS: HBS Num1 0.38 mIU/mL (0-7.99); Thyroid Stimulating Hormone 0.67 uIU/mL (0.32-4.0); ~Hepatitis B Surface Antibody NONREACTIVE (Nonreactive)
[2021-07-01 11:39] LABS: Alanine Aminotransferase 19 U/L (0-31); Albumin Level 4.2 g/dL (3.5-5.0); Alkaline Phosphatase 90 U/L (39-117); Anion Gap 13 (12-20); Aspartate Amino Transferase 17 U/L (5-31); Bilirubin Total 0.4 mg/dL (0.0-1.0); Blood Urea Nitrogen 18 mg/dL (9-16); Calcium 9.6 mg/dL (8.4-10.2); Carbon Dioxide 29 mmol/L (22-29); Chloride 104 mmol/L (96-108); Cholesterol 218 mg/dL; Estimated Glomerular Filt Rate > 60; Glucose Fasting 67 mg/dL (60-99); HDL Cholesterol 70 mg/dL; LDL Cholesterol Calculated 124 mg/dl; Potassium 4.5 mmol/L (3.3-5.1); Sodium 141 mmol/L (135-145); Total Protein 6.8 g/dL (6.5-8.0); Triglycerides 123 mg/dL
[2021-07-01 11:44] LABS: Folate 10.2 ng/mL (> or = 4.0); Vitamin B12 365 pg/mL (200-900)
[2021-07-02 08:56] LABS: Rubella IgG Antibody 1.78 Index; Rubeola IgG (Measles) <13.50 AU/mL
[2021-07-05 15:32] LABS: Vitamin D 25-OH, D2 <4 ng/mL; Vitamin D 25-OH, D3 9 ng/mL; Vitamin D 25-OH, Total 9 ng/mL (30-100)
== END 2021-07-01 09:31 | disposition home or self-care (01) ==
LOC: HO.LAB 09:30
PROVIDERS: PCP Internal Medicine; Visit Provider Internal Medicine
DX: E66.9 Obesity, unspecified (principal); R53.82 Chronic fatigue, unspecified; L65.9 Nonscarring hair loss, unspecified; E55.9 Vitamin D deficiency, unspecified; Z23 Encounter for immunization
CPT/HCPCS: 36415; 80053; 80061; 82306; 82607; 82746; 84443; 85025; 86706; 86735; 86762; 86765; 86787

== ENCOUNTER 2021-07-03 14:51 | Outpatient (REF) | payer OTHER, SELFPAY ==
--- NOTE | ~2021-07-03 | XR_ITS ---
EXAMINATION: XR CHEST CLINICAL INFORMATION: Nonspecific reaction to tuberculin skin test COMPARISON: 01/23/2021 TECHNIQUE: 2 views of the chest were obtained. FINDINGS: No significant abnormality is noted involving the heart, lungs, mediastinum, bony thorax or soft tissues. XR/XR chest 2V IMPRESSION: Unremarkable examination.
== END 2021-07-03 14:52 | disposition home or self-care (01) ==
LOC: HO.XRAY 14:51
PROVIDERS: PCP Internal Medicine; Visit Provider Internal Medicine
DX: R76.11 Nonspecific reaction to tuberculin skin test without active tuberculosis (principal)
CPT/HCPCS: 71046

== ENCOUNTER 2021-08-23 18:00 | Emergency (ER) | payer OTHER, SELFPAY ==
--- NOTE | ~2021-08-23 | XR_ITS ---
EXAMINATION: X-RAY RIGHT HAND X-RAY LEFT HAND CLINICAL INFORMATION: Fall. COMPARISON: Radiograph of the right hand dated from 06/14/2016. TECHNIQUE: 3 views of each hand. FINDINGS: Right hand: No acute fractures or malalignment. Normal soft tissues. No radiopaque foreign bodies. Left hand: No acute fractures or malalignment. Normal soft tissues. No radiopaque foreign bodies. XR/XR hand RT min 3V IMPRESSION: Normal examination of the right and left hands.
--- NOTE | ~2021-08-23 | XR_ITS ---
EXAMINATION: XR CHEST CLINICAL INFORMATION: Fall. COMPARISON: Chest radiograph dated from 07/03/2021. TECHNIQUE: PA view of the chest was obtained. FINDINGS: No significant abnormality is noted involving the heart, lungs, mediastinum, bony thorax or soft tissues. XR/XR chest 1V IMPRESSION: Unremarkable examination.
--- NOTE | ~2021-08-23 | XR_ITS ---
EXAMINATION: X-RAY RIGHT HAND X-RAY LEFT HAND CLINICAL INFORMATION: Fall. COMPARISON: Radiograph of the right hand dated from 06/14/2016. TECHNIQUE: 3 views of each hand. FINDINGS: Right hand: No acute fractures or malalignment. Normal soft tissues. No radiopaque foreign bodies. Left hand: No acute fractures or malalignment. Normal soft tissues. No radiopaque foreign bodies. XR/XR hand LT min 3V IMPRESSION: Normal examination of the right and left hands.
--- NOTE | ~2021-08-23 | XR_ITS ---
EXAMINATION: XR CERVICAL SPINE CLINICAL INFORMATION: Fall. COMPARISON: Radiograph of the cervical spine dated from 10/11/2017. TECHNIQUE: 4 views of the cervical spine were obtained. FINDINGS: The cervical spine is visualized up to the level of C5 on the lateral views, as C6 and C7 are obscured by shadowing from the shoulders. There is straightening of the normal cervical lordosis. No acute compression deformities. The atlantooccipital and atlantoaxial articulations are maintained. No prevertebral soft tissue thickening. XR/XR cervical spine 3V IMPRESSION: Limited evaluation of the lower cervical spine. Otherwise, no evidence of acute fractures or malalignment in the visualized segments.
[2021-08-23 18:11] VITALS: BP 145/85; PULSE 86; RESP 16; TEMP 36.8; O2SAT 100; BMI 33.4
--- NOTE | 2021-08-23 19:43 | ED.FALL ---
HPI - Fall General Chief Complaint: Fall Stated Complaint: fall/body pain/hand lac Time Seen by Provider: 08/23/21 18:37 Source: patient Mode of arrival: ambulatory Limitations: language barrier ( [place]-speaking medical logistics specialist utilized) History of Present Illness HPI Narrative: patient presents to the emergency department after sustaining a mechanical trip and fall down the stairs yesterday night, approximately 14 hours prior to arrival. She reports that she was drinking alcohol and bringing the trash outside when she slipped and fell down the stairs. She reports possibly hitting her head but denies any loss of consciousness, her was present and reports that she did not lose consciousness. She reports a laceration to the bridge of her nose, a laceration to the palm of her right hand at the base of the thumb, inability to move her left thumb due to pain, and overall generalized body aches. She denies headache, vision changes, neck pain or stiffness, numbness or tingling of the extremities, burning sensation of the hands, bowel or bladder incontinence, saddle paresthesias. Related Data Previous Rx's Medication Instructions Recorded norethindrone (contraceptive) 0.35 0.35 mg PO DAILY #30 tab 05/05/20 mg tablet (Jovana) albuterol sulfate 1.25 mg/3 mL 1.25 mg (3 mL) INHALATION QID PRN 03/05/21 solution for nebulization 30 Days #75 ml nebulizers (AeroEclipse II #1 ea 03/05/21 Nebulizer) escitalopram oxalate 5 mg tablet 5 mg PO DAILY 90 Days #90 tab 03/20/21 omeprazole 40 mg capsule,delayed 40 mg PO DAILY #30 cap 03/20/21 release naproxen 500 mg tablet 500 mg PO BID PRN 90 Days #180 tab 04/21/21 cyclobenzaprine 10 mg tablet 10 mg PO BEDTIME #14 tab 05/19/21 cholecalciferol (vitamin D3) 50 50 mcg PO DAILY 90 Days #90 cap 07/05/21 mcg (2,000 unit) capsule diphenhydramine HCl 25 mg capsule 25 mg PO BEDTIME PRN #10 cap 07/06/21 (Benadryl) hydrocortisone 1 % topical cream 1 appl TOPICAL BID-QID PRN #28.4 g 07/06/21 (Cortisone (hydrocortisone)) montelukast 10 mg tablet 10 mg PO BEDTIME #10 tab 07/06/21 albuterol sulfate 90 mcg/actuation 1 inh INHALATION QID PRN #8.5 g 07/13/21 aerosol inhaler Allergies Allergy/AdvReac Type Severity Reaction Status Date / Time No Known Allergies Allergy Verified 08/23/21 18:11 [No Known Allergies*] Review of Systems Review of Systems: Constitutional : No Fever, No Chills, No Fatigue ENT/Mouth : No sore throat, No Rhinorrhea Eyes: No Eye Pain, No Swelling, No Redness Cardiovascular : No Chest Pain, No SOB, No Dyspnea on Exertion Respiratory : No Cough, No Sputum Gastrointestinal : No Nausea, No Vomiting, No Diarrhea, No abdominal Pain Genitourinary : No Dysuria, No Urinary Frequency, No Hematuria, Musculoskeletal : positive generalized body aches. No joint pain, No Joint Swelling Skin : No Skin Lesions, No rash abrasion to the bridge of nose. laceration to right palm at base of thumb Neuro : No Weakness, No Numbness, No Dizziness, no Headache Psych : No Anxiety/Panic, No Depression Heme/Lymph: No Bruising, No Bleeding,No Lymphadenopathy Endocrine : No Polyuria, No Polydipsia Yes all other systems are reviewed and are negative PMFSH Past Medical History Attestation statement: The following information was validated with the patient. Source: old records reviewed Medical History Ankle pain Chronic fatigue Depression with anxiety GERD (gastroesophageal reflux disease) Hair loss Hypovitaminosis D Immunization due Insomnia Mild asthma Mild persistent asthma Muscle spasm Obese Smoker Surgical History History of section Family History Family History Father Lung cancer Liver cancer Mother Diabetes Brother Aortic heart murmur Maternal Aunt Uterine cancer Breast cancer Social History Social History Housing: Apartment Alcohol intake: current Alcohol intake frequency: a few times a month Alcohol type: beer and wine Patient Tobacco Use Status: Current everyday Tobacco user Tobacco use type: Cigarette Cigarettes Per Day: 3 Years Smoked: 20 e-Cigarette/Vaping Use: Never Used Second Hand Smoke Exposure: Yes Substance Use Type: Marijuana Advance Directives: No Advance Directives Information Provided: No service: No Current occupational status: employed Current occupational exposures/hazards: No Sexual orientation: Straight/Heterosexual Cognitive needs: No Hearing needs: No Vision needs: No Physical Exam Vital Signs: Vital Signs: Last Vital Signs Temp 98.3 F 08/23/21 18:11 Pulse 86 08/23/21 18:11 Resp 16 08/23/21 18:11 BP 145/85 H 08/23/21 18:11 Pulse Ox 100 08/23/21 18:11 BMI result Body Mass Index 33.4 Vital signs have been reviewed and appeared to be correct. hypertensive.? Heart rate normal.? Respiration rate normal. Temperature normal.? Oxygen saturation normal. Appearance: Alert.?Oriented to person, place and time. No acute distress.?Normal affect. Head: Normocephalic, atraumatic. No head, sinus or TMJ tenderness.? Eyes: Sclera white, conjunctiva pink. PERRL, 3 mm bilaterally. Visual brown full to confrontation, EOMi.?No Nystagmus. no raccoon eyes No Orbital deformities. Ears: Bilateral ear canals clear, TM visible with good cone of light.? no Chow sign Nose: Nasal mucosa pink and moist with midline septum, nares patent bilaterally.? no septal hematoma Mouth/ Throat: Oral mucosa pink and moist, no dental fractures. Pharynx normal. Neck: Normal inspection.? Neck supple.?? No palpable midline C-spine tenderness, step-offs, deformities. CVS: Heart sounds normal. Normal heart rate and rhythm.? Pulses normal.?? Respiratory: No respiratory distress.? Lung sounds clear to auscultation bilaterally?? Abdomen: Soft and non-tender. Normoactive bowel sounds. ? Skin: Skin warm and dry.? Normal skin color.? right palm with scabbed laceration, 0.5 cm superficial laceration, no active bleeding Extremities: No lower extremity edema.?Has full AROM to the bilateral wrists, all digits of the right hand, digits 2-5 on the left, with limited ROM to left thumb Neuro: Moves all extremities spontaneously. Sensation intact bilaterally. CN II-XII intact. No focal neuro deficits. Ambulates with normal steady gait. Course Course Course Narrative: Patient is a well-appearing nontoxic 36-year-old female with a past medical history of depression, anxiety, GERD, insomnia, asthma presenting for evaluation after a mechanical fall while intoxicated yesterday evening. She has normal mentation, no neck pain, full AROM, no palpable midline tenderness, step-offs, or deformities. XR obtained of the cervical spine reveals no evidence acute fractures or malalignment. Would defer CT At this time. Laceration to the right palm cleansed with normal saline, wound edges approximated with Steri-Strips. X-ray of the bilateral hands are normal with no acute fractures or malalignment. Discussed findings with patient, advised for plan of care discharge home, tylenol and ibuprofen as needed for pain or discomfort, discussed reasons to return back to the emergency department, outpatient follow-up with primary care provider as needed, all questions were answered. MDM - Fall Imaging Data cervical XR: Radiologist's impression: XR/XR cervical spine 3V IMPRESSION: Limited evaluation of the lower cervical spine. Otherwise, no evidence of acute fractures or malalignment in the visualized segments. Chest x-ray: Radiologist's impression: XR/XR chest 1V IMPRESSION: Unremarkable examination. ? hand xr: Radiologist's impression: FINDINGS: Right hand: No acute fractures or malalignment. Normal soft tissues. No radiopaque foreign bodies. Left hand: No acute fractures or malalignment. Normal soft tissues. No radiopaque foreign bodies.? XR/XR hand RT min 3V IMPRESSION: Normal examination of the right and left hands.? Discharge Plan Discharge Clinical Impression: Fall Patient Disposition: Home, Self-Care Additional Instructions: X-rays were normal. refrain from alcohol consumption. Follow-up with your primary care provider as needed. You can take ibuprofen 200 mg, 3 tablets (600mg) every 6-8 hours as needed for pain, in addition to Tylenol 500 mg, 2 tablets (1,000mg) every 4-6 hours as needed for pain, but not to exceed 3 doses daily (3,000mg).? Return to the emergency department any new or worsening symptoms or concerns. Prescriptions: No Action escitalopram oxalate 5 mg tablet 5 mg PO DAILY 90 Days Qty: 90 1RF omeprazole 40 mg capsule,delayed release(DR/EC) 40 mg PO DAILY Qty: 30 6RF naproxen 500 mg tablet 500 mg PO BID PRN (Reason: pain) 90 Days Qty: 180 1RF cholecalciferol (vitamin D3) 50 mcg (2,000 unit) capsule 50 mcg PO DAILY 90 Days Qty: 90 3RF albuterol sulfate 90 mcg/actuation HFA aerosol inhaler 1 inh inhalation QID PRN (Reason: shortness of breath or wheezing) Qty: 8.5 0RF albuterol sulfate 1.25 mg/3 mL solution for nebulization 1.25 mg inhalation QID PRN (Reason: shortness of breath or wheezing) 30 Days Qty: 75 1RF (DME) AeroEclipse II Nebulizer Misc See Rx Instructions .Route Qty: 1 0RF Rx Instructions: As directed montelukast 10 mg tablet 10 mg PO BEDTIME Qty: 10 0RF hydrocortisone [Cortisone (hydrocortisone)] 1 % cream 1 appl topical BID-QID PRN (Reason: skin irritation) Qty: 28.4 0RF diphenhydramine HCl [Benadryl] 25 mg capsule 25 mg PO BEDTIME PRN (Reason: itching) Qty: 10 0RF cyclobenzaprine 10 mg tablet 10 mg PO BEDTIME Qty: 14 0RF norethindrone (contraceptive) [Jovana] 0.35 mg tablet 0.35 mg PO DAILY Qty: 30 11RF Stand Alone Forms: Work/School Release
== END 2021-08-23 20:16 | disposition home or self-care (01) ==
PROVIDERS: Emergency Provider Internal Medicine; PCP Internal Medicine
DX: S61.411A Laceration without foreign body of right hand, initial encounter (principal); S01.21XA Laceration without foreign body of nose, initial encounter; M79.10 Myalgia, unspecified site; M54.2 Cervicalgia; M79.642 Pain in left hand; M79.641 Pain in right hand; R07.89 Other chest pain; F12.90 Cannabis use, unspecified, uncomplicated; F17.210 Nicotine dependence, cigarettes, uncomplicated; W10.9XXA Fall (on) (from) unspecified stairs and steps, initial encounter; Y93.9 Activity, unspecified; Y92.009 Unspecified place in unspecified non-institutional (private) residence as the place of occurrence of the external cause; Y99.9 Unspecified external cause status; Z79.899 Other long term (current) drug therapy; Z71.6 Tobacco abuse counseling
CPT/HCPCS: 71045; 72040; 73130; 99283

== ENCOUNTER 2021-11-30 18:18 | Emergency (ER) | payer OTHER, SELFPAY ==
[2021-11-30 20:16] VITALS: BP 123/63; PULSE 61; RESP 18; TEMP 36.8; O2SAT 99; BMI 35.7
--- NOTE | 2021-11-30 20:25 | ED.EXTPRO ---
HPI - Extremity Problem General Chief complaint: Extremity Injury, Upper Stated complaint: Suture Removal Time Seen by Provider: 11/30/21 20:19 Source: patient Mode of arrival: ambulatory History of Present Illness HPI Narrative: 36-year-old female who states that she injured the nail of her left middle finger when moving. Patient is been unable to remove the rest of her nail due to pain. Related Data Previous Rx's Medication Instructions Recorded norethindrone (contraceptive) 0.35 0.35 mg PO DAILY #30 tabs 05/05/20 mg tablet (Jovana) albuterol sulfate 1.25 mg/3 mL 1.25 mg (3 mL) inhalation QID PRN 03/05/21 solution for nebulization shortness of breath or wheezing 30 days #75 mL nebulizers (AeroEclipse II #1 ea 03/05/21 Nebulizer) escitalopram oxalate 5 mg tablet 5 mg PO DAILY 90 days #90 tabs 03/20/21 omeprazole 40 mg capsule,delayed 40 mg PO DAILY #30 caps 03/20/21 release naproxen 500 mg tablet 500 mg PO BID PRN pain 90 days 04/21/21 #180 tabs cholecalciferol (vitamin D3) 50 50 mcg PO DAILY 90 days #90 caps 07/05/21 mcg (2,000 unit) capsule diphenhydramine HCl 25 mg capsule 25 mg PO BEDTIME PRN itching #10 07/06/21 (Benadryl) caps hydrocortisone 1 % topical cream 1 appl topical BID-QID PRN skin 07/06/21 (Cortisone (hydrocortisone)) irritation #28.4 grams montelukast 10 mg tablet 10 mg PO BEDTIME #10 tabs 07/06/21 cyclobenzaprine 10 mg tablet 10 mg PO BID 5 days #10 tabs 08/26/21 albuterol sulfate 90 mcg/actuation 1 inh inhalation QID PRN shortness 11/10/21 aerosol inhaler of breath or wheezing #8.5 grams Allergies Allergy/AdvReac Type Severity Reaction Status Date / Time No Known Allergies Allergy Verified 08/26/21 13:02 [No Known Allergies*] Review of Systems Review of Systems: Pertinent positives and negatives as stated in HPI 10 point review of systems is otherwise negative. PMFSH Past Medical History Source: nursing notes reviewed Medical History Ankle pain Chronic fatigue Depression with anxiety GERD (gastroesophageal reflux disease) Hair loss Hypovitaminosis D Immunization due Insomnia Mild asthma Mild persistent asthma Muscle spasm Obese Smoker Surgical History History of section Family History Family History Father Lung cancer Liver cancer Mother Diabetes Brother Aortic heart murmur Maternal Aunt Uterine cancer Breast cancer Social History Social History Housing: Apartment Alcohol intake: current Alcohol intake frequency: a few times a month Alcohol type: beer and wine Patient Tobacco Use Status: Current everyday Tobacco user Tobacco use type: Cigarette Cigarettes Per Day: 3 Years Smoked: 20 e-Cigarette/Vaping Use: Never Used Second Hand Smoke Exposure: Yes Substance Use Type: Marijuana Advance Directives: No Advance Directives Information Provided: No service: No Current occupational status: employed Current occupational exposures/hazards: No Sexual orientation: Straight/Heterosexual Cognitive needs: No Hearing needs: No Vision needs: No Physical Exam Vital Signs: Vital Signs: Last Vital Signs Temp 98.3 F 11/30/21 20:16 Pulse 61 11/30/21 20:16 Resp 18 11/30/21 20:16 BP 123/63 11/30/21 20:16 Pulse Ox 99 11/30/21 20:16 O2 Del Method 11/30/21 20:16 BMI result Body Mass Index 35.7 VITAL SIGNS: Reviewed. GENERAL: Well developed, well nourished, in no acute distress. HEAD: Normocephalic/atraumatic EYES: PERRLA, EOMI EARS: Ext canals without abnormality OROPHARYNX: no oral lesions noted, posterior pharynx clear LUNGS: Normal breath sounds. No adventitious sounds or accessory muscle use. SpO2<99> CARDIOVASCULAR: Regular rate and rhythm without noted murmurs ABDOMEN: Soft, non-tender, non-distended with bowel sounds. EXTREMITIES: No cyanosis, clubbing or edema; LEFT MIDDLE FINGER WITH PARTIALLY ATTACHED NAIL. NO EVIDENCE OF INFECTION. NEUROLOGIC: Alert and oriented x 4. Course Course Course Narrative: 36-year-old female with history and clinical presentation consistent with partial removal. After evaluation to ensure that the digit was completely numb, the nail was quickly removed and is currently hemostatic. The nail is already growing in, bacitracin was applied and covered with a Band-Aid and patient was discharged. Procedures Nerve Block Nerve Block 1: Time out performed: No Local Anesthetic: lidocaine 1% Amount of anesthesia used (mL): 5 Side: left Nerve Blocks: digital Procedure Successful: No Patient Tolerated Procedure: well Complications: none Discharge Plan Discharge Clinical Impression: Injury of nail bed of finger Patient Disposition: Home, Self-Care Instructions: Nail Avulsion (ED) Additional Instructions: 1. Recomendar Tylenol/ibuprofeno de venta kenyatta seg?n sea necesario para controlar el dolor. 2. Puede limpiar el ?steffany con agua y jab?n, secar y volver a aplicar bacitracina. Regrese a la radha de emergencias si los s?ntomas empeoran. Prescriptions: No Action escitalopram oxalate 5 mg tablet 5 mg PO DAILY 90 Days Qty: 90 1RF omeprazole 40 mg capsule,delayed release(DR/EC) 40 mg PO DAILY Qty: 30 6RF naproxen 500 mg tablet 500 mg PO BID PRN (Reason: pain) 90 Days Qty: 180 1RF cholecalciferol (vitamin D3) 50 mcg (2,000 unit) capsule 50 mcg PO DAILY 90 Days Qty: 90 3RF albuterol sulfate 90 mcg/actuation HFA aerosol inhaler 1 inh inhalation QID PRN (Reason: shortness of breath or wheezing) Qty: 8.5 0RF albuterol sulfate 1.25 mg/3 mL solution for nebulization 1.25 mg inhalation QID PRN (Reason: shortness of breath or wheezing) 30 Days Qty: 75 1RF (DME) AeroEclipse II Nebulizer Misc See Rx Instructions .Route Qty: 1 0RF Rx Instructions: As directed montelukast 10 mg tablet 10 mg PO BEDTIME Qty: 10 0RF hydrocortisone [Cortisone (hydrocortisone)] 1 % cream 1 appl topical BID-QID PRN (Reason: skin irritation) Qty: 28.4 0RF diphenhydramine HCl [Benadryl] 25 mg capsule 25 mg PO BEDTIME PRN (Reason: itching) Qty: 10 0RF cyclobenzaprine 10 mg tablet 10 mg PO BID 5 Days Qty: 10 0RF norethindrone (contraceptive) [Jovana] 0.35 mg tablet 0.35 mg PO DAILY Qty: 30 11RF Referrals: Roxanne Abdalla MD [Primary Care Provider] - Print Language: Guyanese
== END 2021-11-30 21:39 | disposition home or self-care (01) ==
PROVIDERS: Emergency Provider Student in an Organized Health Care Education/Training Program; PCP Internal Medicine
DX: S61.303A Unspecified open wound of left middle finger with damage to nail, initial encounter (principal); Y29.XXXA Contact with blunt object, undetermined intent, initial encounter; Y93.9 Activity, unspecified; Y92.009 Unspecified place in unspecified non-institutional (private) residence as the place of occurrence of the external cause; Y99.9 Unspecified external cause status; Z79.899 Other long term (current) drug therapy; Z48.02 Encounter for removal of sutures
CPT/HCPCS: 99282; 99284

== ENCOUNTER 2021-12-08 11:17 | Emergency (ER) | payer OTHER, SELFPAY ==
[2021-12-08 11:37] VITALS: BP 134/80; PULSE 82; RESP 16; TEMP 36; O2SAT 97; BMI 35.3
[2021-12-08 12:01] LABS: COVID-19 Test Positive (Negative)
--- NOTE | 2021-12-08 12:53 | ED_ITS ---
HPI - General Adult General Chief complaint: Upper Respiratory Symptoms Stated complaint: Cough/Vomiting/Body aches Time Seen by Provider: 12/08/21 12:45 Source: patient Mode of arrival: ambulatory Limitations: no limitations History of Present Illness HPI narrative: 36-year-old female presents to ED for coughing due to exposure to COVID. Patient states son also having similar symptoms. Patient denies any chest pain or shortness of breath Related Data Previous Rx's Medication Instructions Recorded norethindrone (contraceptive) 0.35 0.35 mg PO DAILY #30 tabs 05/05/20 mg tablet (Jovana) albuterol sulfate 1.25 mg/3 mL 1.25 mg (3 mL) inhalation QID PRN 03/05/21 solution for nebulization shortness of breath or wheezing 30 days #75 mL nebulizers (AeroEclipse II #1 ea 03/05/21 Nebulizer) escitalopram oxalate 5 mg tablet 5 mg PO DAILY 90 days #90 tabs 03/20/21 omeprazole 40 mg capsule,delayed 40 mg PO DAILY #30 caps 03/20/21 release naproxen 500 mg tablet 500 mg PO BID PRN pain 90 days 04/21/21 #180 tabs cholecalciferol (vitamin D3) 50 50 mcg PO DAILY 90 days #90 caps 07/05/21 mcg (2,000 unit) capsule diphenhydramine HCl 25 mg capsule 25 mg PO BEDTIME PRN itching #10 07/06/21 (Benadryl) caps hydrocortisone 1 % topical cream 1 appl topical BID-QID PRN skin 07/06/21 (Cortisone (hydrocortisone)) irritation #28.4 grams montelukast 10 mg tablet 10 mg PO BEDTIME #10 tabs 07/06/21 cyclobenzaprine 10 mg tablet 10 mg PO BID 5 days #10 tabs 08/26/21 albuterol sulfate 90 mcg/actuation 1 inh inhalation QID PRN shortness 11/10/21 aerosol inhaler of breath or wheezing #8.5 grams Allergies Allergy/AdvReac Type Severity Reaction Status Date / Time No Known Allergies Allergy Verified 08/26/21 13:02 [No Known Allergies*] Review of Systems Review of Systems: COVID like symptoms Yes all other systems are reviewed and are negative PMFSH Past Medical History Medical History Ankle pain Chronic fatigue Depression with anxiety GERD (gastroesophageal reflux disease) Hair loss Hypovitaminosis D Immunization due Insomnia Mild asthma Mild persistent asthma Muscle spasm Obese Smoker Surgical History History of section Family History Family History Father Lung cancer Liver cancer Mother Diabetes Brother Aortic heart murmur Maternal Aunt Uterine cancer Breast cancer Social History Social History Housing: Apartment Alcohol intake: current Alcohol intake frequency: a few times a month Alcohol type: beer and wine Patient Tobacco Use Status: Current everyday Tobacco user Tobacco use type: Cigarette Cigarettes Per Day: 3 Years Smoked: 20 e-Cigarette/Vaping Use: Never Used Second Hand Smoke Exposure: Yes Substance Use Type: Marijuana Advance Directives: No Advance Directives Information Provided: No service: No Current occupational status: employed Current occupational exposures/hazards: No Sexual orientation: Straight/Heterosexual Cognitive needs: No Hearing needs: No Vision needs: No Physical Exam ED Vital Signs: Vital Signs - 24 hr 12/08/21 11:37 Temperature 96.8 F Pulse Rate 82 Respiratory Rate 16 Blood Pressure 134/80 Pulse Oximetry 97 Oxygen Delivery Method Room Air BMI result Body Mass Index 35.3 Const General: cooperative, healthy appearing, comfortable, no acute distress, well developed, alert, awake and Physically active Orientation/consciousness: patient oriented x3 HENMT Head: Yes normal to inspection, Yes No palpable skull fracture present, Yes normocephalic, Yes atraumatic and No abrasion Eyes General: appearance normal, both eyes and all related structures Neck Neck: Yes normal visual inspection, Yes full ROM, Yes no lymphadenopathy, Yes no meningeal signs, Yes trachea midline, Yes supple, No anterior neck swelling and No tender Chest Chest palpation & inspection: normal inspection of the chest and normal palpation of entire chest wall Resp Effort & Inspection: normal respiratory effort and able to speak in complete sentences Auscultation: clear to auscultation bilaterally Cardio Jugular venous distension: no JVD Heart sounds: S1 normal heart sound present and S2 normal heart sound present GI Inspection: Yes normal to inspection and No abdominal wall ecchymosis Palpation (GI): Soft to palpation, not firm, nontender, no guarding and not rigid General: No CVA tenderness and Yes no CVA tenderness Back/Spine/Pelvis Back: no CVA tenderness, No CVA tenderness and No back tenderness Skin General skin exam: no rashes or lesions noted and elasticity normal Neuro General: patient oriented x3, gait normal and no meningeal signs Cranial nerves: Yes CN's II-XII intact bilaterally Extrem General: Yes normal to inspection and Yes full ROM Psych Appearance: grossly normal, well kempt and not disheveled Course Course Course Narrative: Patient well-appearing. Patient tested for COVID. Reevaluation(s) Reevaluation #1: COVID swab positive. Patient educated on respiratory distress, myocarditis, HI, and pulmonary embolus and told to return to the ED if she has any other symptoms Time: 20:56 Medical Decision Making [facility] Narrative Medical decision making narrative: COVID Lab Data Labs: Lab Results 12/08/21 Range/Units 11:43 COVID-19 (NABILA) Positive A (Negative) COVID-19 Clin Com See Note Discharge Plan Discharge Clinical Impression: COVID-19 Patient Disposition: Home, Self-Care Instructions: COVID-19 (Coronavirus Disease 2019) (ED) Additional Instructions: Tienes COVID. Regrese al servicio de urgencias por cualquier dolor en el pecho, dificultad para respirar, tos con camille, hinchaz?n de las piernas, dolor en la pantorrilla, debilidad, mareos, estado mental alterado o cualquier otro s?ntoma preocupante. Recomendar seguimiento con el proveedor de atenci?n primaria. Recomiende el autoaislamiento zackary al menos 7-10 d?as. Prescriptions: No Action escitalopram oxalate 5 mg tablet 5 mg PO DAILY 90 Days Qty: 90 1RF omeprazole 40 mg capsule,delayed release(DR/EC) 40 mg PO DAILY Qty: 30 6RF naproxen 500 mg tablet 500 mg PO BID PRN (Reason: pain) 90 Days Qty: 180 1RF cholecalciferol (vitamin D3) 50 mcg (2,000 unit) capsule 50 mcg PO DAILY 90 Days Qty: 90 3RF albuterol sulfate 90 mcg/actuation HFA aerosol inhaler 1 inh inhalation QID PRN (Reason: shortness of breath or wheezing) Qty: 8.5 0RF albuterol sulfate 1.25 mg/3 mL solution for nebulization 1.25 mg inhalation QID PRN (Reason: shortness of breath or wheezing) 30 Days Qty: 75 1RF (DME) AeroEclipse II Nebulizer Misc See Rx Instructions .Route Qty: 1 0RF Rx Instructions: As directed montelukast 10 mg tablet 10 mg PO BEDTIME Qty: 10 0RF hydrocortisone [Cortisone (hydrocortisone)] 1 % cream 1 appl topical BID-QID PRN (Reason: skin irritation) Qty: 28.4 0RF diphenhydramine HCl [Benadryl] 25 mg capsule 25 mg PO BEDTIME PRN (Reason: itching) Qty: 10 0RF cyclobenzaprine 10 mg tablet 10 mg PO BID 5 Days Qty: 10 0RF norethindrone (contraceptive) [Jovana] 0.35 mg tablet 0.35 mg PO DAILY Qty: 30 11RF Stand Alone Forms: Work/School Release Interventions: ED Discharge Assessment Last Done: 12/08/21 13:55 Discharge Date/Time: 12/08/21 13:58 Print Language: Tunisian
== END 2021-12-08 13:58 | disposition home or self-care (01) ==
PROVIDERS: Emergency Provider Student in an Organized Health Care Education/Training Program; PCP Internal Medicine
DX: U07.1 COVID-19 (principal); F17.210 Nicotine dependence, cigarettes, uncomplicated; E66.9 Obesity, unspecified; Z68.35 Body mass index [BMI] 35.0-35.9, adult; J45.909 Unspecified asthma, uncomplicated
CPT/HCPCS: 87635; 99283

== ENCOUNTER 2022-03-13 13:22 | Emergency (ER) | payer OTHER, SELFPAY ==
--- NOTE | ~2022-03-13 | XR_ITS ---
EXAMINATION: XR HAND, LEFT CLINICAL INFORMATION: Injury COMPARISON: None available at the time of this dictation. TECHNIQUE: Frontal lateral oblique left hand and scaphoid view views of the hand were obtained. FINDINGS: There is no fracture or dislocation. Radiocarpal, intercarpal, carpometacarpal, metacarpophalangeal and interphalangeal joints are intact. There are no osteolytic or osteoblastic lesions. There are no bone erosions. Surrounding soft tissue unremarkable. XR/XR hand wrist LT IMPRESSION: No fracture or dislocation.
--- NOTE | 2022-03-13 14:48 | ED.UPPEXIN ---
HPI - Extremity Injury (Upper) General Chief Complaint: Wound/Laceration <MARICRUZ Moralez - Last Filed: 03/13/22 14:50> Stated Complaint: L Hand inj/Finger lac <MARICRUZ Moralez - Last Filed: 03/13/22 14:50> Time Seen by Provider: 03/13/22 16:49 <MARICRUZ Moralez - Last Filed: 03/13/22 14:50> Source: patient <MARICRUZ Reilly - Last Filed: 03/13/22 18:18> Mode of arrival: ambulatory <MARICRUZ Reilly Last Filed: 03/13/22 18:18> History of Present Illness HPI narrative: 36-year-old female with a past medical history of chronic fatigue, GERD, insomnia, asthma, obesity, presenting to the ED complaining of laceration to left index finger since 22:00 last night s/p cutting on glass table. Denies retained States after lacerated finger hit left hand/thumb against table. Complaining of left wrist/thumb pain with decreased ROM since incident. Tetanus unknown. Denies numbness, tingling, weakness <MARICRUZ Reilly - Last Filed: 03/13/22 18:18> MD complaint: injury to: left <MARICRUZ Reilly Last Filed: 03/13/22 18:18> Related Data Home Medications: Previous Rx's Medication Instructions Recorded norethindrone (contraceptive) 0.35 0.35 mg PO DAILY #30 tabs 05/05/20 mg tablet (Jovana) albuterol sulfate 1.25 mg/3 mL 1.25 mg (3 mL) inhalation QID PRN 03/05/21 solution for nebulization shortness of breath or wheezing 30 days #75 mL nebulizers (AeroEclipse II #1 ea 03/05/21 Nebulizer) escitalopram oxalate 5 mg tablet 5 mg PO DAILY 90 days #90 tabs 03/20/21 omeprazole 40 mg capsule,delayed 40 mg PO DAILY #30 caps 03/20/21 release naproxen 500 mg tablet 500 mg PO BID PRN pain 90 days 04/21/21 #180 tabs cholecalciferol (vitamin D3) 50 50 mcg PO DAILY 90 days #90 caps 07/05/21 mcg (2,000 unit) capsule diphenhydramine HCl 25 mg capsule 25 mg PO BEDTIME PRN itching #10 07/06/21 (Benadryl) caps hydrocortisone 1 % topical cream 1 appl topical BID-QID PRN skin 07/06/21 (Cortisone (hydrocortisone)) irritation #28.4 grams montelukast 10 mg tablet 10 mg PO BEDTIME #10 tabs 07/06/21 albuterol sulfate 90 mcg/actuation 1 inh inhalation QID PRN shortness 02/01/22 aerosol inhaler of breath or wheezing #8.5 grams cyclobenzaprine 10 mg tablet 10 mg PO BID 5 days #10 tabs 02/01/22 erythromycin 5 mg/gram (0.5 %) eye 0.5 inch ophthalmic (eye) TID #1 g 02/17/22 ointment cephalexin 500 mg capsule 500 mg PO QID 7 days #28 caps 03/13/22 <MARICRUZ Moralez Last Filed: 03/13/22 14:50> Allergies/Adverse Reactions: Allergies Allergy/AdvReac Type Severity Reaction Status Date / Time No Known Allergies Allergy Verified 02/17/22 09:15 [No Known Allergies*] <MARICRUZ Moralez Last Filed: 03/13/22 14:50> Review of Systems Review of Systems: Constitutional: No Fever, No Chills ENT/Mouth: No Nasal Congestion, No sore throat, No Rhinorrhea, No Swallowing Difficulty Cardiovascular: No Chest Pain, No SOB Respiratory: No Cough, No Sputum, No Wheezing Gastrointestinal: No Nausea, No Vomiting, No Diarrhea, No Constipation, No Abdominal pain Genitourinary: No Dysuria, No Urinary Frequency, No Hematuria, No Flank Pain Musculoskeletal: + joint pain, No Myalgias, + Joint Swelling Skin: + Skin Lesions, No rash Neuro: No Weakness, No Numbness, No Paresthesias <MARICRUZ Reilly Last Filed: 03/13/22 18:18> Yes all other systems are reviewed and are negative <MARICRUZ Reilly Last Filed: 03/13/22 18:18> Constitutional: Constitutional: Reports as per HPI <MARICRUZ Reilly Last Filed: 03/13/22 18:18> Neurologic: Denies Sensory deficit (Neuro) <MARICRUZ Reilly - Last Filed: 03/13/22 18:18> [facility] Past Medical History Attestation statement: The following information was validated with the patient. <MARICRUZ Reilly - Last Filed: 03/13/22 18:18> Medical History: Medical History Ankle pain Chronic fatigue Depression with anxiety GERD (gastroesophageal reflux disease) Hair loss Hypovitaminosis D Immunization due Insomnia Mild asthma Mild persistent asthma Muscle spasm Obese Smoker <MARICRUZ Moralez - Last Filed: 03/13/22 14:50> Surgical History: Surgical History History of section <MARICRUZ Moralez - Last Filed: 03/13/22 14:50> Family History Family History: Family History Father Lung cancer Liver cancer Mother Diabetes Brother Aortic heart murmur Maternal Aunt Uterine cancer Breast cancer <MARICRUZ Moralez - Last Filed: 03/13/22 14:50> Social History Social History: Social History Housing: Apartment Alcohol intake: current Alcohol intake frequency: a few times a month Alcohol type: beer and wine Patient Tobacco Use Status: Current everyday Tobacco user Tobacco use type: Cigarette Cigarettes Per Day: 3 Years Smoked: 20 e-Cigarette/Vaping Use: Never Used Second Hand Smoke Exposure: Yes Substance Use Type: Marijuana Advance Directives: No Advance Directives Information Provided: No service: No Current occupational status: employed Current occupational exposures/hazards: No Sexual orientation: Straight/Heterosexual Cognitive needs: No Hearing needs: No Vision needs: No <MARICRUZ Moralez - Last Filed: 03/13/22 14:50> Physical Exam Vital Signs: Vital Signs: Last Vital Signs Temp 97.7 F 03/13/22 14:53 Pulse 77 03/13/22 14:53 Resp 16 03/13/22 14:53 BP 141/81 H 03/13/22 14:53 Pulse Ox 99 03/13/22 14:53 O2 Del Method 03/13/22 14:53 BMI result Body Mass Index 35.5 <MARICRUZ Moralez - Last Filed: 03/13/22 14:50> Vital Signs: Last Vital Signs Temp 97.7 F 03/13/22 14:53 Pulse 77 03/13/22 14:53 Resp 16 03/13/22 14:53 BP 141/81 H 03/13/22 14:53 Pulse Ox 99 03/13/22 14:53 O2 Del Method 03/13/22 14:53 BMI result Body Mass Index 35.5 <MARICRUZ Reilly - Last Filed: 03/13/22 18:18> Const: General: cooperative, healthy appearing and no acute distress <MARICRUZ Reilly - Last Filed: 03/13/22 18:18> Orientation/consciousness: patient oriented x3 <MARICRUZ Reilly - Last Filed: 03/13/22 18:18> Limitations: no limitations <MARICRUZ Reilly - Last Filed: 03/13/22 18:18> HEENT: Head: Yes normal to inspection and Yes atraumatic <MARICRUZ Reilly - Last Filed: 03/13/22 18:18> Ears: hearing grossly normal bilaterally <MARICRUZ Reilly - Last Filed: 03/13/22 18:18> General nose exam: Normal external nose present <MARICRUZ Reilly - Last Filed: 03/13/22 18:18> Face and sinus: Yes normal facial exam <MARICRUZ Reilly - Last Filed: 03/13/22 18:18> Eyes: General: appearance normal, both eyes and all related structures <MARICRUZ Reilly - Last Filed: 03/13/22 18:18> EOM: EOMs intact bilaterally <MARICRUZ Reilly - Last Filed: 03/13/22 18:18> Neck: Neck: Yes normal visual inspection and Yes no meningeal signs <MARICRUZ Reilly - Last Filed: 03/13/22 18:18> Resp: Effort & Inspection: normal respiratory effort and no respiratory distress <MARICRUZ Reilly - Last Filed: 03/13/22 18:18> Cardio: Rate: regular rate <MARICRUZ Reilly - Last Filed: 03/13/22 18:18> Heart sounds: S1 normal heart sound present and S2 normal heart sound present <MARICRUZ Reilly Last Filed: 03/13/22 18:18> Peripheral pulses: radial pulses present and ulnar radial pulses present <MARICRUZ Reilly Last Filed: 03/13/22 18:18> Skin: Rashes: no rashes <MARICRUZ Reilly Last Filed: 03/13/22 18:18> Neuro: General: patient oriented x3, tone normal and no meningeal signs <MARICRUZ Reilly Last Filed: 03/13/22 18:18> Gait exam (Neuro): Normal gait present <MARICRUZ Reilly Last Filed: 03/13/22 18:18> Sensory Exam: No Sensory deficit (Neuro) <MARICRUZ Reilly Last Filed: 03/13/22 18:18> Extrem: Other: + deep laceration noted to palmar distal aspect of left index finger distal to DIP with visible subcutaneous tissue. + surrounding swelling and mild erythema. No streaking. No fluctuance or induration Full range of motion to digit intact. Sensation intact. Left thumb and radial aspect of wrist with noted tenderness to palpation. + snuffbox tenderness. Tuquwo-fr-odaud opposition intact with pain. Neurovascularly intact. <MARICRUZ Reilly Last Filed: 03/13/22 18:18> Course Course Course Narrative: -laceration extensively soaked in Betadine/saline prior to closure XR hand wrist LT IMPRESSION: No fracture or dislocation. >> due to snuffbox tenderness will put patient on thumb spica splint <MARICRUZ Reilly Last Filed: 03/13/22 18:18> Reevaluation(s) Reevaluation #1: 36-year-old female presenting to the ED with complaints of left hand/wrist pain/swelling after she sustained an injury yesterday around 9-10 p.m. she reports she was cutting some lettuce with a knife and she sustained a laceration to her left hand middle finger and she actually injured her hand on the table at her house. she reports + numbness to middle finger. UTD on tetanus. Plan: back to and Xray of left hand and wrist ordered. Pt stable <MARICRUZ Moralez - Last Filed: 03/13/22 14:50> Time: 14:48 <MARICRUZ Moralez - Last Filed: 03/13/22 14:50> Medications Administered Discontinued Medications Generic Name Dose Route Start Last Admin Trade Name Freq PRN Reason Stop Dose Admin Diphtheria/Tetanus/Acell Pertussis 0.5 ml 03/13/22 17:05 03/13/22 18:03 Diphth,Pertus(Acell),Tet Adult 0.5 Ml Syringe IM 03/13/22 17:06 0.5 ml .ONCE ONE Administration Lidocaine HCl 5 ml 03/13/22 17:07 03/13/22 17:46 Lidocaine Hcl 1 % Mpf 5 Ml Vial INFILTRATI 03/13/22 17:08 5 ml ONCE ONE Administration Naproxen 500 mg 03/13/22 17:07 03/13/22 17:46 Naproxen 500 Mg Tablet PO 03/13/22 17:08 500 mg ONCE ONE Administration <MARICRUZ Moralez - Last Filed: 03/13/22 14:50> Medications Administered Discontinued Medications Generic Name Dose Route Start Last Admin Trade Name Freq PRN Reason Stop Dose Admin Diphtheria/Tetanus/Acell Pertussis 0.5 ml 03/13/22 17:05 03/13/22 18:03 Diphth,Pertus(Acell),Tet Adult 0.5 Ml Syringe IM 03/13/22 17:06 0.5 ml .ONCE ONE Administration Lidocaine HCl 5 ml 03/13/22 17:07 03/13/22 17:46 Lidocaine Hcl 1 % Mpf 5 Ml Vial INFILTRATI 03/13/22 17:08 5 ml ONCE ONE Administration Naproxen 500 mg 03/13/22 17:07 03/13/22 17:46 Naproxen 500 Mg Tablet PO 03/13/22 17:08 500 mg ONCE ONE Administration <MARICRUZ Reilly - Last Filed: 03/13/22 18:18> MDM - Extremity Injury (Upper) MDM Narrative Medical decision making narrative: 36-year-old female with a past medical history of chronic fatigue, GERD, insomnia, asthma, obesity, presenting to the ED complaining of laceration to left index finger since 22:00 last night s/p cutting on glass table. On exam vital signs stable, NAD, nontoxic appearing, physical exam as above with snuffbox tenderness and laceration to left index finger with mild surrounding swelling and erythema. Will repair wound, update tetanus, and obtain x-rays. Low suspicion for tendon rupture Will place patient in a thumb spica due to snuffbox tenderness. <MARICRUZ Reilly Last Filed: 03/13/22 18:18> Differential Diagnosis Differential diagnosis: Likely sprain and strain of wrist, fracture of wrist, finger sprain and fracture of hand <MARICRUZ Reilly Last Filed: 03/13/22 18:18> Medical Records Attestation: I reviewed the patient's medical records. <MARICRUZ Moralez - Last Filed: 03/13/22 14:50> Lab Data Attestation: I reviewed the patient's lab results. <MARICRUZ Reilly Last Filed: 03/13/22 18:18> Procedures Laceration Laceration 1: Site: hand <MARICRUZ Reilly Last Filed: 03/13/22 18:18> Side (If applicable): left <MARICRUZ Reilly - Last Filed: 03/13/22 18:18> Size (cm): 1.5 <MARICRUZ Reilly - Last Filed: 03/13/22 18:18> Description: linear <MARICRUZ Reilly - Last Filed: 03/13/22 18:18> Depth: simple, single layer <MARICRUZ Reilly - Last Filed: 03/13/22 18:18> Local Anesthetic: lidocaine 1% <MARICRUZ Reilly - Last Filed: 03/13/22 18:18> Amount of anesthesia used (mL): 3.5 <MARICRUZ Reilly Last Filed: 03/13/22 18:18> Pre-repair: wound explored <MARICRUZ Reilly Last Filed: 03/13/22 18:18> Skin layer closed with: nylon <MARICRUZ Reilly Last Filed: 03/13/22 18:18> Size (cm): 4-0 and 5-0 <MARICRUZ Reilly Last Filed: 03/13/22 18:18> Number of sutures: 6 <MARICRUZ Reilly - Last Filed: 03/13/22 18:18> Technique: simple, interrupted <MARICRUZ Reilly - Last Filed: 03/13/22 18:18> Discharge Plan Discharge Clinical Impression: Scaphoid fracture, Finger laceration <MARICRUZ Moralez Last Filed: 03/13/22 14:50> Patient Disposition: Home, Self-Care <MARICRUZ Moralez Last Filed: 03/13/22 14:50> Instructions: Finger Laceration (ED), Scaphoid Fracture (ED) <MARICRUZ Moralez Last Filed: 03/13/22 14:50> Additional Instructions: Your x-ray was unremarkable however due to your pain is please were splint at all times, only taking off to shower. And follow-up with orthopedics in 1 week. Your wound was repaired with sutures today. You need to return to any emergency department, urgent care, or primary care doctor in 7-10 days for suture removal Keflex as an antibiotic please take as prescribed Your tetanus was updated If area begins look infected, is red, there is drainage you develop fever, decreased mobility return to the emergency department <MARICRUZ Moralez Last Filed: 03/13/22 14:50> Prescriptions: New cephalexin 500 mg capsule 500 mg PO QID 7 Days Qty: 28 0RF No Action escitalopram oxalate 5 mg tablet 5 mg PO DAILY 90 Days Qty: 90 1RF omeprazole 40 mg capsule,delayed release(DR/EC) 40 mg PO DAILY Qty: 30 6RF naproxen 500 mg tablet 500 mg PO BID PRN (Reason: pain) 90 Days Qty: 180 1RF cholecalciferol (vitamin D3) 50 mcg (2,000 unit) capsule 50 mcg PO DAILY 90 Days Qty: 90 3RF albuterol sulfate 90 mcg/actuation HFA aerosol inhaler 1 inh inhalation QID PRN (Reason: shortness of breath or wheezing) Qty: 8.5 0RF cyclobenzaprine 10 mg tablet 10 mg PO BID 5 Days Qty: 10 0RF albuterol sulfate 1.25 mg/3 mL solution for nebulization 1.25 mg inhalation QID PRN (Reason: shortness of breath or wheezing) 30 Days Qty: 75 1RF (DME) AeroEclipse II Nebulizer Misc See Rx Instructions .Route Qty: 1 0RF Rx Instructions: As directed montelukast 10 mg tablet 10 mg PO BEDTIME Qty: 10 0RF hydrocortisone [Cortisone (hydrocortisone)] 1 % cream 1 appl topical BID-QID PRN (Reason: skin irritation) Qty: 28.4 0RF diphenhydramine HCl [Benadryl] 25 mg capsule 25 mg PO BEDTIME PRN (Reason: itching) Qty: 10 0RF erythromycin 5 mg/gram (0.5 %) ointment 0.5 inch ophthalmic (eye) TID Qty: 1 0RF norethindrone (contraceptive) [Jovana] 0.35 mg tablet 0.35 mg PO DAILY Qty: 30 11RF <MARICRUZ Moralez - Last Filed: 03/13/22 14:50> Referrals: [facility] [Provider Group] - 1 week <MARICRUZ Moralez - Last Filed: 03/13/22 14:50>
[2022-03-13 14:53] VITALS: BP 141/81; PULSE 77; RESP 16; TEMP 36.5; O2SAT 99; BMI 35.5
[2022-03-13] MEDS: Lidocaine HCl 1 % MPF 5 ML VIAL INFILTRATI (17:46)
[2022-03-13] MEDS: NaPROXEN 500 MG TABLET PO (17:46)
[2022-03-13] MEDS: Diphth,Pertus(ACell),Tet Adult 0.5 ML SYRINGE IM (18:03)
== END 2022-03-13 18:27 | disposition home or self-care (01) ==
PROVIDERS: Emergency Provider Emergency Medicine; PCP Internal Medicine
DX: S61.211A Laceration without foreign body of left index finger without damage to nail, initial encounter (principal); W26.0XXA Contact with knife, initial encounter; Y93.G1 Activity, food preparation and clean up; S62.002A Unspecified fracture of navicular [scaphoid] bone of left wrist, initial encounter for closed fracture; W22.03XA Walked into furniture, initial encounter; Y93.89 Activity, other specified; Y92.039 Unspecified place in apartment as the place of occurrence of the external cause; Y99.9 Unspecified external cause status; F17.210 Nicotine dependence, cigarettes, uncomplicated; F12.90 Cannabis use, unspecified, uncomplicated
CPT/HCPCS: 12001; 29125; 73110; 73130; 90471; 90715; 99283; 99284

== ENCOUNTER → 2022-03-16 14:46 | Outpatient (BNVA) | payer OTHER, SELFPAY | PROVIDERS: PCP Internal Medicine; Visit Provider Orthopaedic Surgery | DX: S61.213A Laceration without foreign body of left middle finger without damage to nail, initial encounter (principal); M79.645 Pain in left finger(s) | CPT/HCPCS: 99202 ==

== ENCOUNTER 2022-03-30 10:23 | Outpatient (REF) | payer OTHER, SELFPAY ==
--- NOTE | ~2022-03-30 | XR_ITS ---
EXAMINATION: XR WRIST, LEFT CLINICAL INFORMATION: M25.532 - Pain in left wrist COMPARISON: 03/13/2022 TECHNIQUE: PA, lateral, oblique, and scaphoid views of the left wrist. FINDINGS: No fracture or malalignment. Bone mineralization is normal. Joint spaces are well-preserved. No erosions. Soft tissues are unremarkable. Normal alignment of the proximal carpal row. No soft tissue calcifications. XR/XR wrist LT w scaphoid IMPRESSION: Normal left wrist radiographs.
== END 2022-03-30 10:24 | disposition home or self-care (01) ==
LOC: HO.HOSX 10:23
PROVIDERS: Visit Provider Orthopaedic Surgery
DX: Z13.89 Encounter for screening for other disorder (principal)

== ENCOUNTER → 2022-04-01 07:44 | Outpatient (BNVA) | payer OTHER, SELFPAY | PROVIDERS: PCP Internal Medicine; Visit Provider Orthopaedic Surgery | DX: S61.213D Laceration without foreign body of left middle finger without damage to nail, subsequent encounter (principal); M79.645 Pain in left finger(s) | CPT/HCPCS: 73110; 99212 ==

== ENCOUNTER 2022-11-16 16:11 | Outpatient (AMB) | payer OTHER, SELFPAY ==
[2022-11-16 16:21] VITALS: BP 112/80; BMI 33.8
--- NOTE | 2022-11-16 16:21 | A.OFFPC_ITS ---
Vital Signs 11/16/22 16:21 Height 5 ft Weight 173 lb BMI 33.8 BP 112/80 Blood Pressure Location Lt brachial Position Sitting Intake Visit Reasons: asthma Intake Note: patient here follow up Asthma Freight Coordinator Required: No Accompanied by: Child Allergies No Known Allergies [No Known Allergies*] Allergy (Verified 11/16/22 16:39) Medication List - Last Reconciled 11/16/22 by Roxanne Alejandro MD albuterol sulfate 1.25 mg (3 mL) inhalation QID PRN 30 days albuterol sulfate 90 mcg/actuation (Ventolin HFA) 1 puff PO QID PRN cholecalciferol (vitamin D3) 50 mcg PO DAILY 90 days cyclobenzaprine 10 mg PO BID 5 days diphenhydramine HCl (Benadryl) 25 mg PO BEDTIME PRN escitalopram oxalate 5 mg PO DAILY 90 days hydrocortisone 1% (Cortisone (hydrocortisone)) 1 appl topical BID-QID PRN ibuprofen 800 mg PO Q8H PRN 90 days montelukast 10 mg PO BEDTIME nebulizers (AeroEclipse II Nebulizer) As directed omeprazole 40 mg PO DAILY Tobacco use date assessed: 11/16/22 Dental Screening Dental Screen Date: 11/16/22 Did you have a dental visit in the last 12 months?: No Did you have a dental problem in the last 6 months where you did not have access to dental care?: No Was dental information given to patient?: Patient has dentist HPI HPI Comments History of Present Illness Details This is a 37-year-old female with mild major depression, mild asthma, GERD and low vitamin-D that comes today for follow-up on her conditions. She has been depressed from the of her father that was last year and has been out of escitalopram for over a month. She use rescue inhaler less than once a month. GERD was stable with PPIs. Vitamin-D supplements and vitamin-D levels will be order. Complains of chest wall pain located in the middle of the chest that happens occasionally. It happens at rest. PFSH Medical History Ankle pain Chronic fatigue Depression with anxiety GERD (gastroesophageal reflux disease) Hair loss Hypovitaminosis D Immunization due Insomnia Mild asthma Mild persistent asthma Muscle spasm Obese Smoker Surgical History History of section Family History (Updated 11/16/22 @ 16:44 by Roxanne Alejandro MD) Father Lung cancer Liver cancer Mother Diabetes Brother Aortic heart murmur Maternal Aunt Uterine cancer Breast cancer Social History Housing: Apartment Alcohol intake: current Alcohol intake frequency: a few times a month Alcohol type: beer and wine Patient Tobacco Use Status: Current everyday Tobacco user Tobacco use type: Cigarette Cigarettes Per Day: 4 Years Smoked: 20 e-Cigarette/Vaping Use: Never Used Second Hand Smoke Exposure: Yes Substance Use Type: Marijuana service: No Current occupational status: employed 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 1. Little interest or pleasure in doing things: more than half the days 2. Feeling down, depressed, or hopeless: more than half the days 3. Trouble falling or staying asleep, or sleeping too much: more than half the days 4. Feeling tired or having little energy: more than half the days 5. Poor appetite or overeating: several days 6. Feeling bad about yourself - or that you are a failure or have let yourself or your family down: several days 7. Trouble concentrating on things, such as reading the newspaper or watching television: not at all 8. Moving or speaking so slowly that other people could have noticed. Or the opposite - being so fidgety or restless that you have been moving around a lot more than usual: several days 9. Thoughts that you would be better off or of hurting yourself in some way: not at all Total score: 11 Depression Screening Interpretation: Positive Depression Screening Follow-up: Existing condition and In treatment 76740 - PHQ-9 Billing: Yes Source: Developed by Drs. Venkatesh Nuñez, Dana King, Srinivasan Win and colleagues, with an educational raissa from [employer]. Thrive Questionnaire Date Thrive assessed: 11/16/22 I am a: Patient What is your living situation today?: I have a steady place to live Within the past 12 months, did the food you bought not last and you didn't have the money to get more?: Never true Within the past 12 months, did you worry whether your food would run out before you got money to buy more?: Never true Do you have trouble paying for medicines?: No Do you have trouble getting transportation to medical appointments?: No Do you have trouble paying your heating and electricity bill?: No Do you have trouble taking care of your child, family member or friend?: No Do you have trouble with day-to-day activities such as bathing, preparing meals, shopping, managing finances, etc.?: No Are you currently unemployed and looking for a job?: No Are you interested in more education?: No Please select the resources that you would like help with: None Currently or been in a relationship where the following occur: no concerns reported AUDIT C Alcohol Use Questionnaire (AUDIT-C) 1. How often do you have a drink containing alcohol?: Monthly or less 2. How many drinks containing alcohol do you have on a typical day when you are drinking?: 1 or 2 3. How often do you have six or more drinks on one occasion?: Never Total Score: 1 Score Reviewed/Action Taken: No IVONNE-7 AMB Questionnaire IVONNE-7 Date IVONNE - 7 assessed: 11/16/22 Feeling nervous, anxious, or on edge: 0 = Not at all Not being able to stop or control worryin = Not at all Worrying too much about different things: 1 = Several days Trouble relaxin = Not at all Being so restless that it is hard to sit still: 0 = Not at all Becoming easily annoyed or irritable: 2 = More than half the days Feeling afraid as if something awful might happen: 0 = Not at all Total IVONNE-7 score (0-4 normal; 5-9 mild; 10-14 moderate; 15-21 severe): 3 Source: Developed by Drs. Venkatesh Nuñez, Dana King, Srinivasan Win and colleagues, with an educational raissa from [employer]. IVONNE-7 Assessment Billing IVONNE-7 Assessment Tool: IVONNE-7 Assessment 83974 Review of Systems Const All systems reviewed & are unremarkable except as noted in HPI and below Eyes Reports no additional complaints, Denies change in vision and Denies other visual disturbances Card Denies chest pain at rest, Denies chest pain with activity, Denies edema, Denies irregular heart rhythm, Denies claudication, Denies dyspnea, Denies dyspnea on exertion, Denies orthopnea, Denies paroxysmal nocturnal dyspnea and Denies slow heart rate Resp Denies cough, Denies dyspnea and Denies dyspnea on exertion GI Denies abdominal pain, Denies change in bowel habits, Denies excessive flatus, Denies nausea and Denies vomiting Denies urinary incontinence, Denies urinary hesitancy and Denies urinary urgency Musc Denies abnormal gait, Denies atrophy, Denies deformity and Denies limited range of motion Skin/Breast Denies bleeding lesions, Denies changing lesions and Denies rash Neuro Denies abnormal gait and Denies lack of coordination Physical exam (Primary Care) Vital Signs: Last Vital Signs BP 112/80 11/16/22 16:21 BMI result Body Mass Index 33.8 Tobacco/Smoking Status: Tobacco use Status Tobacco use date assessed 11/16/22 11/16/22 16:28 Patient Tobacco Use Status Current everyday Tobacco 11/16/22 16:21 Tobacco use type Cigarette 11/16/22 16:21 e-Cigarette/Vaping Use Never Used 11/16/22 16:21 PHQ-9: PHQ-9 Score PHQ-9: Total score 11 11/16/22 17:13 Depression Screening Interpretation: Positive Depression Screening Follow-up: Existing condition and In treatment Thrive Assessment: Date of Thrive Assessment Date Thrive assessed 11/16/22 11/16/22 16:28 Currently or been in a relationship where the following occur: no concerns reported Eyes General: appearance normal, both eyes and all related structures Eyelids: Yes eyelids normal Conjunctivae: conjunctivae normal Neck Neck: Yes normal visual inspection and Yes supple Resp Effort & Inspection: normal respiratory effort Auscultation: clear to auscultation bilaterally Cardio Jugular venous distension: no JVD Rate: regular rate Rhythm: regular rhythm Heart sounds: S1 normal heart sound present and S2 normal heart sound present Extrem General: Yes full ROM Assessment and Plan Assessment & Plan (1) Mild persistent asthma: Code(s): J45.30 - Mild persistent asthma, uncomplicated Plan: Use rescue inhaler as needed (2) GERD (gastroesophageal reflux disease): Code(s): K21.9 - Gastro-esophageal reflux disease without esophagitis Qualifiers: Esophagitis presence: esophagitis presence not specified Qualified Code(s): K21.9 - Gastro-esophageal reflux disease without esophagitis Plan: Restart PPIs (3) Hypovitaminosis D: Code(s): E55.9 - Vitamin D deficiency, unspecified Plan: Continue vitamin-D supplement (4) Mild major depression: Code(s): F32.0 - Major depressive disorder, single episode, mild Plan: Restart escitalopram Orders: Orders Comprehensive [place]. Panel Fast Today M54.6 - Pain in thoracic spine Vitamin D 25-OH Total Today E55.9 - Vitamin D deficiency, unspecified Complete Blood Count Auto Diff Today D64.9 - Anemia, unspecified, M54.6 - Pain in thoracic spine Lipid Panel Today E78.5 - Hyperlipidemia, unspecified Thyroid Stimulating Hormone Today R07.9 - Chest pain, unspecified XR chest 2V Today R07.9 - Chest pain, unspecified Medications: New Ventolin HFA 90 mcg/actuation (albuterol sulfate) 2 puffs inhalation Q6H PRN 18 grams 2RF shortness of breath or wheezing 30 days NS Changed From montelukast 10 mg PO BEDTIME 10 tabs 0RF L23.9 - Allergic contact dermatitis, unspecified cause To montelukast 10 mg PO BEDTIME 30 tabs 1RF 30 days L23.9 - Allergic contact dermatitis, unspecified cause Refilled cholecalciferol (vitamin D3) 50 mcg PO DAILY 90 caps 3RF 90 days E55.9 - Vitamin D deficiency, unspecified cyclobenzaprine 10 mg PO BID 10 tabs 0RF 5 days M62.838 - Other muscle spasm escitalopram oxalate 5 mg PO DAILY 90 tabs 1RF 90 days ibuprofen 800 mg PO Q8H PRN 270 tabs 1RF pain 90 days omeprazole 40 mg PO DAILY 30 caps 6RF Discontinued albuterol sulfate 90 mcg/actuation (Ventolin HFA) Discontinued Reason: Patient Completed Course 1 puff PO QID PRN 18 ea 0RF for wheezing Coding Level of Care Code Est Pt Level 4 (30865) Diagnoses Mild persistent asthma J45.30 GERD (gastroesophageal reflux disease) K21.9 Esophagitis presence: esophagitis presence not specified Hypovitaminosis D E55.9 Mild major depression F32.0 Additional Codes IVONNE-7 Assessment Billing - IVONNE-7 Assessment Tool: IVONNE-7 Assessment 11530 ([id number]) Time Spent (min) 23
== END 2022-11-16 16:48 | disposition home or self-care (01) ==
PROVIDERS: PCP Internal Medicine; Visit Provider Internal Medicine
DX: J45.30 Mild persistent asthma, uncomplicated (principal); K21.9 Gastro-esophageal reflux disease without esophagitis; E55.9 Vitamin D deficiency, unspecified; F32.0 Major depressive disorder, single episode, mild
CPT/HCPCS: 99214

== ENCOUNTER 2023-02-10 04:49 | Emergency (ER) | payer OTHER, SELFPAY ==
[2023-02-10 04:56] VITALS: BP 149/80; PULSE 84; RESP 22; TEMP 36.6; O2SAT 98; BMI 34.8
[2023-02-10] MEDS: Ondansetron ODT 4 MG TAB.RAPDIS TRANSLINGU (05:00)
[2023-02-10 05:38] VITALS: BP 134/70; PULSE 75; O2SAT 98
--- NOTE | 2023-02-10 05:43 | PC.NURSE ---
Pt reporting relief after zofran adminiatration.
[2023-02-10 05:53] LABS: Basophils Absolute Auto 0.1 X10*3/uL (0.0-0.2); Basophils Percent Auto 0.4 % (0-2); Eosinophils Absolute Auto 0.1 X10*3/uL (0.0-0.4); Eosinophils Percent Auto 0.8 % (0-4); Hematocrit 44.9 % (37.0-47.0); Hemoglobin 15.7 g/dl (12.0-16.0); Imm Gran Abs Auto 0.06 X10*3/uL (0.00-0.03); Imm Gran Pct Auto 0.4 % (0.0-0.4); Lymphocytes Absolute Auto 1.8 X10*3/uL (1.2-4.9); Lymphocytes Percent Auto 12.6 % (20-40); MANUAL DIFF FLAG NO; Mean Corpuscular Hemoglobin 32.7 pg (27.0-33.0); Mean Corpuscular Volume 93.5 fL (80.0-98.0); Mean Platelet Volume 10.1 fL (9.4-12.3); Monocytes Absolute Auto 0.5 X10*3/uL (0.1-1.2); Monocytes Percent Auto 3.5 % (2-11); Neutrophils Percent Auto 82.3 % (45-73); Platelet Count 297 X10*3/uL (160-400); Red Cell Distribution Width 12.9 % (11.0-16.0); White Blood Count 14.6 X10*3/uL (4.8-10.8)
[2023-02-10 06:10] LABS: Alanine Aminotransferase 18 U/L (0-31); Albumin Level 4.5 g/dL (3.5-5.0); Alkaline Phosphatase 90 U/L (39-117); Anion Gap 13 (12-20); Aspartate Amino Transferase 20 U/L (5-31); Bilirubin Direct 0.1 mg/dL (0.0-0.5); Bilirubin Total 0.3 mg/dL (0.0-1.0); Blood Urea Nitrogen 10 mg/dL (9-16); Calcium 9.6 mg/dL (8.4-10.2); Carbon Dioxide 25 mmol/L (22-29); Chloride 108 mmol/L (96-108); Estimated Glomerular Filt Rate > 60; Glucose Random 105 mg/dL (60-115); Lipase 33 U/L (8-78); Potassium 4.3 mmol/L (3.3-5.1); Sodium 142 mmol/L (135-145); Total Protein 7.3 g/dL (6.5-8.0)
--- NOTE | 2023-02-10 07:32 | PC.NURSE ---
no complaints, states she gets gastritis from drinking vodka and drank last night
--- NOTE | 2023-02-10 07:45 | ED.ABDPAIN ---
HPI - Abdominal Pain General Chief Complaint: Abdominal Pain Stated Complaint: abd pain Time Seen by Provider: 02/10/23 06:55 Source: patient Mode of arrival: ambulatory Limitations: no limitations History of Present Illness HPI narrative: 37-year-old female with history of gastritis presents with epigastric abdominal pain. The pain started at 3:00 a.m. in the morning. The pain was a 10/10. The pain is currently 5/10. She describes the pain is burning in nature. The pain does not radiate. There is no clear relieving or exacerbating features. Was associated with nonbilious, nonbloody vomiting. She denies any diarrhea constipation. She denies any urinary complaints, vaginal bleeding or discharge. Her last period was a week ago. She denies any fevers or chills. Symptoms are consistent with her history of gastritis. She does have a gallbladder. Related Data Previous Rx's Medication Instructions Recorded albuterol sulfate 1.25 mg/3 mL 1.25 mg (3 mL) inhalation QID PRN 03/05/21 solution for nebulization shortness of breath or wheezing 30 days #75 mL nebulizers (AeroEclipse II #1 ea 03/05/21 Nebulizer) diphenhydramine HCl 25 mg capsule 25 mg PO BEDTIME PRN itching #10 07/06/21 (Benadryl) caps hydrocortisone 1 % topical cream 1 appl topical BID-QID PRN skin 07/06/21 (Cortisone (hydrocortisone)) irritation #28.4 grams Ventolin HFA 90 mcg/actuation 2 puff inhalation Q6H PRN 11/16/22 aerosol inhaler (albuterol sulfate) shortness of breath or wheezing 30 days #18 grams cholecalciferol (vitamin D3) 50 50 mcg PO DAILY 90 days #90 caps 11/16/22 mcg (2,000 unit) capsule escitalopram oxalate 5 mg tablet 5 mg PO DAILY 90 days #90 tabs 11/16/22 ibuprofen 800 mg tablet 800 mg PO Q8H PRN pain 90 days 11/16/22 #270 tabs montelukast 10 mg tablet 10 mg PO BEDTIME 30 days #30 tabs 11/16/22 omeprazole 40 mg capsule,delayed 40 mg PO DAILY #30 caps 11/16/22 release clonazepam 0.5 mg tablet 0.25 mg (1/2 x 0.5 mg) PO BEDTIME 12/16/22 30 days #30 tabs cyclobenzaprine 10 mg tablet 10 mg PO BID 5 days #10 tabs 12/16/22 Allergies Allergy/AdvReac Type Severity Reaction Status Date / Time No Known Allergies Allergy Verified 02/10/23 05:38 [No Known Allergies*] Review of Systems Review of Systems CONSTITUTIONAL: Denies weight loss, fever and chills. HEENT: Denies changes in vision and hearing. RESPIRATORY: Denies SOB and cough. CV: Denies palpitations no CP. GI: + abdominal pain, nausea, vomiting - diarrhea. : Denies dysuria and urinary frequency. MSK: Denies myalgia and joint pain. SKIN: Denies rash and pruritus. NEUROLOGICAL: Denies headache and syncope. PSYCHIATRIC: Denies recent changes in mood. Denies anxiety and depression. All other ROS are negative unless in HPI PMFSH Past Medical History Medical History Ankle pain Chronic fatigue Depression with anxiety GERD (gastroesophageal reflux disease) Hair loss Hypovitaminosis D Immunization due Insomnia Mild asthma Mild persistent asthma Muscle spasm Obese Smoker Surgical History History of section Family History Family History (Updated 11/16/22 @ 16:44 by Roxanne Alejandro MD) Father Lung cancer Liver cancer Mother Diabetes Brother Aortic heart murmur Maternal Aunt Uterine cancer Breast cancer Social History Social History Housing: Apartment Alcohol intake: current Alcohol intake frequency: a few times a month Alcohol type: beer and wine Patient Tobacco Use Status: Current everyday Tobacco user Tobacco use type: Cigarette Cigarettes Per Day: 4 Years Smoked: 20 e-Cigarette/Vaping Use: Never Used Second Hand Smoke Exposure: Yes Substance Use Type: Marijuana Advance Directives: No Advance Directives Information Provided: No service: No Current occupational status: employed 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 Current occupational exposures/hazards: No Sexual orientation: Straight/Heterosexual Cognitive needs: No Hearing needs: No Vision needs: No Physical Exam ED Vital Signs: Vital Signs - 24 hr 02/10/23 04:56 02/10/23 07:58 Temperature 97.9 F Pulse Rate 84 65 Respiratory Rate 22 H 17 Blood Pressure 149/80 H 129/75 Pulse Oximetry 98 98 Oxygen Delivery Method Room Air BMI result Body Mass Index 34.8 GEN: Well developed, no acute distress, alert, oriented HEENT: Normocephalic, atraumatic, normal external ears, nose appears normal, no oropharyngeal edema or exudates Eyes: Normal to appearance Neck: Supple, no lymphadenopathy Respiratory: Talks in complete sentences, no respiratory distress, clear to auscultation bilaterally Cardiovascular: Regular rate and rhythm, no murmurs rubs or gallops Abdomen: Soft, nontender, nondistended, no guarding, no rebound, negative Austin sign, negative McBurney's point tenderness Back: No CVA tenderness Extremities: No clubbing cyanosis or edema Neurologic: No focal neurologic deficits, cranial nerves 2-12 intact, strength is 5/5 bilaterally Skin: No rash Course Reevaluation(s) Reevaluation #1: Patient had Zofran. Her nausea has resolved. She had her pain is currently 5/10 will initiate additional treatment to see if she improves. She had negative Austin sign. Reviewed lab work. No evidence of biliary abnormality. There is no definite indication for imaging at this time. Time: 07:47 Medical Decision Making Medical Decision Making [facility] Narrative: [age] year female presents with upper abdominal pain, burning in nature, associated with nausea vomiting. Examination is benign. She has negative Austin sign, negative McBurney point tenderness. Differential diagnosis include gastritis, gastroparesis, peptic ulcer disease, biliary colic, cholecystitis, doubt colitis, diverticulitis, mesenteric ischemia, AAA. There are no red flag symptoms. Examination is benign. No pulsatile masses. Will initiate symptomatic treatment. Will review lab work. No indication for imaging at this time. However, should symptoms worsen, exam change, would reconsider this. At initially [facility] would consider an ultrasound. Possible admission depending on symptom resolution. Differential Diagnosis Differential Diagnoses: The differential diagnosis associated with the presentation includes (See above) Admission/Observation Consideration of admission/observation: Escalation of care including admission/observation considered Lab Data [facility] Lab Attestation statement: I reviewed the patient's lab results. 02/10/23 05:49 02/10/23 05:49 Labs: Lab Results 02/10/23 02/10/23 02/10/23 Range/Units 05:49 07:50 07:51 WBC 14.6 H (4.8-10.8) X10*3/uL RBC 4.80 (4.20-5.50) X10*6/uL Hgb 15.7 (12.0-16.0) g/dl Hct 44.9 (37.0-47.0) % MCV 93.5 (80.0-98.0) fL MCH 32.7 (27.0-33.0) pg MCHC 35.0 (31.0-35.0) g/dl RDW 12.9 (11.0-16.0) % Plt Count 297 (160-400) X10*3/uL MPV 10.1 (9.4-12.3) fL Immature Gran % (Auto) 0.4 (0.0-0.4) % Neut % (Auto) 82.3 H (45-73) % Lymph % (Auto) 12.6 L (20-40) % [place] % (Auto) 3.5 (2-11) % Eos % (Auto) 0.8 (0-4) % Baso % (Auto) 0.4 (0-2) % Lymph # (Auto) 1.8 (1.2-4.9) X10*3/uL [place] # (Auto) 0.5 (0.1-1.2) X10*3/uL Eos # (Auto) 0.1 (0.0-0.4) X10*3/uL Baso # (Auto) 0.1 (0.0-0.2) X10*3/uL Abs Immat Gran (auto) 0.06 H (0.00-0.03) X10*3/uL Absolute Neuts (auto) 12.0 H (2.0-8.3) x10*3/uL Absolute Nucleated RBC 0.000 (0.0-0.012) X10*3/uL Nucleated RBC % (auto) 0.0 (0.0-0.2) /100WBC Sodium 142 (135-145) mmol/L Potassium 4.3 (3.3-5.1) mmol/L Chloride 108 (96-108) mmol/L Carbon Dioxide 25 (22-29) mmol/L Anion Gap 13 (12-20) BUN 10 (9-16) mg/dL Creatinine 0.71 (0.5-1.4) mg/dL Estim Creat Clear Calc 102.0 Estimated GFR > 60 Random Glucose 105 (60-115) mg/dL Calcium 9.6 (8.4-10.2) mg/dL Total Bilirubin 0.3 (0.0-1.0) mg/dL Direct Bilirubin 0.1 (0.0-0.5) mg/dL AST 20 (5-31) U/L ALT 18 (0-31) U/L Alkaline Phosphatase 90 (39-117) U/L Total Protein 7.3 (6.5-8.0) g/dL Albumin 4.5 (3.5-5.0) g/dL Lipase 33 (8-78) U/L Urine Color Yellow Urine Appearance Clear Urine pH 7.5 (5.0-9.0) Ur Specific [place] 1.025 (1.005-1.025) Urine Protein Trace (Neg-Trace) mg/dL Urine Glucose (UA) Negative (Negative) mg/dL Urine Ketones Negative (Negative) mg/dL Urine Blood Negative (Negative) Urine Nitrite Negative (Negative) Ur Leukocyte Esterase Negative (Negative) Urine Test NEGATIVE (NEGATIVE) Leukocytosis noted, likely leukemoid reaction secondary to acute stress External Record Review External record reviewed: Inpatient record, Office record, Outpatient record and Prior outpatient labs Prescription Management I considered prescription management with: Pain Medication Chronic Conditions Patient?s care impacted by: Other (Asthma, gastritis) Medications Administered Discontinued Medications Generic Name Dose Route Start Last Admin Trade Name Freq PRN Reason Stop Dose Admin Al Hydroxide/Mg Hydroxide 30 ml 02/10/23 07:44 02/10/23 07:55 Magnesium Hydrox/Alum Hydrox 30 Ml Oral.Susp PO 02/10/23 07:45 30 ml ONCE ONE Administration Belladonna Alkaloids/Phenobarbital 10 ml 02/10/23 07:44 02/10/23 07:56 Phenobarb/Hyoscy/Atropine/Scop 10 Ml Elixir PO 02/10/23 07:45 10 ml ONCE ONE Administration Lidocaine HCl 15 ml 02/10/23 07:44 02/10/23 07:56 Lidocaine Hcl Viscous 2 % 15 Ml Solution MUCOUS MEM 02/10/23 07:45 15 ml ONCE ONE Administration Omeprazole 40 mg 02/10/23 07:44 02/10/23 07:56 Omeprazole 40 Mg Capsule. PO 02/10/23 07:45 40 mg ONCE ONE Administration Ondansetron HCl 4 mg 02/10/23 05:35 02/10/23 05:00 Ondansetron Odt 4 Mg Tab.Sheyla TRANSLINGU 02/10/23 05:36 4 mg ONCE ONE Administration Sucralfate 1 gm 02/10/23 07:44 02/10/23 07:56 Sucralfate 1 Gm Tablet PO 02/10/23 07:45 1 gm ONCE ONE Administration Discharge Plan Discharge Clinical Impression: GERD (gastroesophageal reflux disease), Leukocytosis Patient Disposition: Home, Self-Care Instructions: Gastroesophageal Reflux Disease (DC), Leukocytosis (ED) Prescriptions: No Action cyclobenzaprine 10 mg tablet 10 mg PO BID 5 Days Qty: 10 0RF clonazepam 0.5 mg tablet 0.25 mg PO BEDTIME 30 Days Qty: 30 0RF Rx Instructions: administer 30 minutes before bedtime albuterol sulfate 1.25 mg/3 mL solution for nebulization 1.25 mg inhalation QID PRN (Reason: shortness of breath or wheezing) 30 Days Qty: 75 1RF (DME) AeroEclipse II Nebulizer [facility] See Rx Instructions .Route Qty: 1 0RF Rx Instructions: As directed hydrocortisone [Cortisone (hydrocortisone)] 1 % cream 1 appl topical BID-QID PRN (Reason: skin irritation) Qty: 28.4 0RF diphenhydramine HCl [Benadryl] 25 mg capsule 25 mg PO BEDTIME PRN (Reason: itching) Qty: 10 0RF albuterol sulfate [Ventolin HFA] 90 mcg/actuation HFA aerosol inhaler 2 puff inhalation Q6H PRN (Reason: shortness of breath or wheezing) 30 Days Qty: 18 2RF cholecalciferol (vitamin D3) 50 mcg (2,000 unit) capsule 50 mcg PO DAILY 90 Days Qty: 90 3RF escitalopram oxalate 5 mg tablet 5 mg PO DAILY 90 Days Qty: 90 1RF ibuprofen 800 mg tablet 800 mg PO Q8H PRN (Reason: pain) 90 Days Qty: 270 1RF montelukast 10 mg tablet 10 mg PO BEDTIME 30 Days Qty: 30 1RF omeprazole 40 mg capsule,delayed release(DR/EC) 40 mg PO DAILY Qty: 30 6RF Interventions: ED Discharge Assessment Last Done: 02/10/23 08:58 Discharge Date/Time: 02/10/23 09:00
[2023-02-10] MEDS: Magnesium Hydrox/Alum Hydrox 30 ML ORAL.SUSP PO (07:55)
[2023-02-10] MEDS: PHENobarb/Hyoscy/Atropine/Scop 10 ML ELIXIR PO (07:56)
[2023-02-10] MEDS: Lidocaine HCl Viscous 2 % 15 ML SOLUTION MUCOUS MEM (07:56)
[2023-02-10] MEDS: Sucralfate 1 GM TABLET PO (07:56)
[2023-02-10] MEDS: Omeprazole 40 MG CAPSULE.DR PO (07:56)
[2023-02-10 07:58] VITALS: BP 129/75; PULSE 65; RESP 17; O2SAT 98
[2023-02-10 07:58] LABS: Appearance Urine Clear; Color Urine Yellow; Glucose Urine UA Negative (Negative); Leukocyte Esterase Urine Negative (Negative); Nitrite Urine Negative (Negative); PH 7.5 (5.0-9.0); Specific Gravity - Urine 1.025 (1.005-1.025); Urine Blood Negative (Negative); Urine Ketones Negative (Negative); Urine Protein Trace mg/dL (Neg-Trace)
[2023-02-10 07:59] LABS: UPreg QC Valid YES; Urine Pregnancy NEGATIVE (NEGATIVE)
== END 2023-02-10 09:00 | disposition home or self-care (01) ==
PROVIDERS: Emergency Provider Emergency Medicine; PCP Internal Medicine
DX: K21.9 Gastro-esophageal reflux disease without esophagitis (principal); D72.829 Elevated white blood cell count, unspecified; F17.210 Nicotine dependence, cigarettes, uncomplicated; F12.90 Cannabis use, unspecified, uncomplicated; Z79.899 Other long term (current) drug therapy
CPT/HCPCS: 36415; 80048; 80076; 81003; 81025; 83690; 85025; 99283

== ENCOUNTER 2023-03-11 09:11 | Outpatient (AMB) | payer OTHER, SELFPAY ==
[2023-03-11 09:16] VITALS: BP 110/60; PULSE 84; O2SAT 98; BMI 35.0
--- NOTE | 2023-03-11 09:16 | A.OFFPC_ITS ---
Vital Signs 03/11/23 09:16 Height 5 ft Weight 179 lb BMI 35.0 BP 110/60 Blood Pressure Location Lt brachial Position Sitting Pulse 84 Pulse Source Pulse Oximeter Pulse Oximetry (%) 98 Oxygen Delivery Method Room Air Intake Visit Reasons: Physical exam Project Facilitator Required: Yes Project Facilitator Name: tara [id number] Insulation Manager: Not Required per policy Accompanied by: Self / Same As Patient Allergies No Known Allergies [No Known Allergies*] Allergy (Verified 03/11/23 09:28) Medication List - Last Reconciled 03/11/23 by MELIZA Michael albuterol sulfate 1.25 mg (3 mL) inhalation QID PRN 30 days cholecalciferol (vitamin D3) 50 mcg PO DAILY 90 days clonazepam 0.25 mg (1/2 x 0.5 mg) PO BEDTIME 30 days cyclobenzaprine 10 mg PO BID 5 days diphenhydramine HCl (Benadryl) 25 mg PO BEDTIME PRN escitalopram oxalate 5 mg PO DAILY 90 days ibuprofen 800 mg PO Q8H PRN 90 days montelukast 10 mg PO BEDTIME 30 days nebulizers (AeroEclipse II Nebulizer) As directed omeprazole 40 mg PO DAILY Ventolin HFA 90 mcg/actuation (albuterol sulfate) 2 puffs inhalation Q6H PRN 30 days NS Tobacco use date assessed: 11/16/22 Dental Screening Dental Screen Date: 03/11/23 Did you have a dental visit in the last 12 months?: Yes Did you have a dental problem in the last 6 months where you did not have access to dental care?: No Was dental information given to patient?: Patient has dentist HPI HPI Comments History of Present Illness Details 37-year-old female past medical history significant for depression, anxiety, insomnia, chronic fatigue, mild asthma, GERD, low vitamin-D. Patient Dr. Wheat last seen in September for physical exam. Patient reminded to get previously ordered blood work obtained. Review of the notes patient was seen in the emergency room last month for GERD and was treated symptomatically. Patient requesting referral to Gastroenterology for further evaluation of reflux. Referral entered. Patient denies chest pain, palpitations, shortness of breath and syncope. Patient reports nasal congestion related to seasonal allergies. Patient can take [id number] Claritin for this. Patient reminded to get previously ordered blood work completed. Pap smear: Patient follows with Rani MELGAR, states lab tests Pap was 3 years ago. Patient advised to follow up for repeat Pap smear screening. Eye exam: Recommended every couple years. Tdap current, flu shot declined. [facility] Medical History Hypovitaminosis D Immunization due Hair loss Mild persistent asthma GERD (gastroesophageal reflux disease) Mild asthma Ankle pain Smoker Obese Chronic fatigue Insomnia Muscle spasm Depression with anxiety Surgical History History of section Family History Father Lung cancer Liver cancer Mother Diabetes Brother Aortic heart murmur Maternal Aunt Uterine cancer Breast cancer Social History Housing: Apartment Alcohol intake: current Alcohol intake frequency: a few times a month Alcohol type: beer and wine Patient Tobacco Use Status: Current everyday Tobacco user Tobacco use type: Cigarette Cigarettes Per Day: 4 Years Smoked: 20 e-Cigarette/Vaping Use: Never Used Second Hand Smoke Exposure: Yes Substance Use Type: Marijuana service: No Current occupational status: employed 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 1. Little interest or pleasure in doing things: more than half the days 2. Feeling down, depressed, or hopeless: more than half the days 3. Trouble falling or staying asleep, or sleeping too much: more than half the days 4. Feeling tired or having little energy: more than half the days 5. Poor appetite or overeating: several days 6. Feeling bad about yourself - or that you are a failure or have let yourself or your family down: several days 7. Trouble concentrating on things, such as reading the newspaper or watching television: not at all 8. Moving or speaking so slowly that other people could have noticed. Or the opposite - being so fidgety or restless that you have been moving around a lot more than usual: several days 9. Thoughts that you would be better off or of hurting yourself in some way: not at all Total score: 11 Depression Screening Interpretation: Positive (appointment nest week [facility]) Depression Screening Follow-up: Existing condition and In treatment Depression Screening Done: Yes [id number] - PHQ-9 Billing: Yes Source: Developed by Drs. Venkatesh Nuñez, Srinivasan Phipps and colleagues, with an educational raissa from [employer]. Thrive Questionnaire Date Thrive assessed: 11/16/22 AUDIT C Alcohol Use Questionnaire (AUDIT-C) 1. How often do you have a drink containing alcohol?: Monthly or less 2. How many drinks containing alcohol do you have on a typical day when you are drinking?: 1 or 2 3. How often do you have six or more drinks on one occasion?: Never Total Score: 1 Score Reviewed/Action Taken: No IVONNE-7 AMB Questionnaire IVONNE-7 Date IVONNE - 7 assessed: 11/16/22 Source: Developed by Drs. Venkatesh Nuñez, Srinivasan Phipps and colleagues, with an educational raissa from [employer]. Review of Systems Const Denies chills, Denies fatigue, Denies fever(s) and Denies poor appetite Eyes Denies no additional complaints ENT Reports Normal hearing present Card Denies chest pain, Denies syncope, Denies rapid heart rate and Denies dyspnea Resp Denies cough and Denies dyspnea GI Denies change in stool character, Denies constipation, Denies diarrhea, Denies nausea and Denies vomiting Denies urinary frequency, Denies dysuria and Denies urinary urgency Neuro Reports Normal hearing present, Denies confusion and Denies syncope Psych Denies confusion Endo Denies fatigue Physical exam (Primary Care) Vital Signs: Last Vital Signs Pulse 84 03/11/23 09:16 BP 110/60 03/11/23 09:16 Pulse Ox 98 03/11/23 09:16 Oxygen Delivery Method Room Air 03/11/23 09:16 BMI result Body Mass Index 35.0 Tobacco/Smoking Status: Tobacco use Status Tobacco use date assessed 11/16/22 03/11/23 09:23 Patient Tobacco Use Status Current everyday Tobacco 11/10/23 09:23 Tobacco use type Cigarette 03/11/23 09:23 e-Cigarette/Vaping Use Never Used 03/11/23 09:23 PHQ-9: PHQ-9 Score PHQ-9: Total score 03/11/23 09:23 Depression Screening Interpretation: Positive (appointment nest week [facility]) Depression Screening Follow-up: Existing condition and In treatment Thrive Assessment: Date of Thrive Assessment Date Thrive assessed 11/16/22 03/11/23 09:23 Const General: No confusion Orientation/consciousness: No confusion HENMT Head: Yes normocephalic and Yes atraumatic Ears: external ears normal and TM's normal bilaterally General nose exam: Normal external nose present and Normal nasal mucous membranes and turbinates present Face and sinus: Yes normal facial exam and Yes sinuses nontender Mouth: moist mucous membranes Throat: Yes tonsils normal Eyes Conjunctivae: conjunctivae normal Sclerae: sclerae normal Pupils: Equal, round and reactive pupils present and Pupils normal by confrontation EOM: EOMs intact bilaterally Direct Ophthalmoscopy: normal light reflex Neck Neck: Yes no lymphadenopathy and Yes supple Thyroid: Thyroid normal Chest Chest palpation & inspection: normal inspection of the chest Resp Effort & Inspection: normal respiratory effort Auscultation: clear to auscultation bilaterally, no crackles, no rhonchi and no wheezes Cardio Rate: regular rate Rhythm: regular rhythm Heart sounds: S1 normal heart sound present and S2 normal heart sound present Peripheral pulses: radial pulses present and dorsalis pedis present GI Inspection: Yes normal to inspection Palpation (GI): Soft to palpation, nontender and No hepatosplenomegaly present Auscultation: normoactive bowel sounds Skin General skin exam: no rashes or lesions noted Neuro General: No confusion Cranial nerves: Yes Equal, round and reactive pupils present and Yes Normal hearing present Cognition (Neuro): normal cognition Gait exam (Neuro): Normal gait present Motor exam (neuro): 5/5 motor strength present throughout Deep tendon reflexes (DTR's): Right brachioradialis reflex intensity grade: 2+, Left brachioradialis reflex intensity grade: 2+, Right patellar reflex intensity grade: 2+ and Left patellar reflex intensity grade: 2+ Extrem General: No edema Assessment and Plan Assessment & Plan (1) Physical exam, annual: Code(s): Z00.00 - Encounter for general adult medical examination without abnormal findings Plan: Recommended follow-up in 1 year. (2) GERD (gastroesophageal reflux disease): Code(s): K21.9 - Gastro-esophageal reflux disease without esophagitis Plan: Continue on omeprazole 40 mg daily. Given patient continues to experience worsening reflux and some so much so that she reported to the emergency room on January will refer to gastroenterology for further evaluation and possible endoscopy. (3) Mild major depression: Code(s): F32.0 - Major depressive disorder, single episode, mild Plan: Continue on escitalopram. Continue to establish care with [facility], patient states has upcoming appointment next month. Plan Follow-up in 6 months Orders: Referrals Gastroenterology Referral K21.9 - Gastro-esophageal reflux disease without esophagitis Medications: Refilled omeprazole 40 mg PO DAILY 30 caps 6RF ibuprofen 800 mg PO Q8H 90 days PRN 270 tabs 1RF pain cyclobenzaprine 10 mg PO BID 5 days 10 tabs 0RF M62.838 - Other muscle spasm Ventolin HFA 90 mcg/actuation (albuterol sulfate) 2 puffs inhalation Q6H 30 days PRN 18 grams 2RF shortness of breath or wheezing NS Coding Level of Care Code Est Pt Prev Care 18-39y(35953) Diagnoses Physical exam, annual Z00.00 Gastroesophageal reflux disease, unspecified whether esophagitis present K21.9 Mild major depression F32.0
== END 2023-03-11 09:46 | disposition home or self-care (01) ==
PROVIDERS: PCP Internal Medicine; Visit Provider Nurse Practitioner Family
DX: Z00.00 Encounter for general adult medical examination without abnormal findings (principal); K21.9 Gastro-esophageal reflux disease without esophagitis; F32.0 Major depressive disorder, single episode, mild; F41.9 Anxiety disorder, unspecified
CPT/HCPCS: 99395

== ENCOUNTER 2023-04-26 15:59 | Emergency (ER) | payer OTHER, SELFPAY ==
[2023-04-26 16:13] VITALS: BP 120/71; PULSE 89; RESP 20; TEMP 36.8; O2SAT 98; BMI 35.2
[2023-04-26 19:28] VITALS: BP 138/79; PULSE 61; RESP 16; TEMP 36.4; O2SAT 99
--- NOTE | 2023-04-26 19:34 | ED.URI ---
HPI - URI/Sore Throat General Chief Complaint: Dental/Oral Stated Complaint: sore throat Time Seen by Provider: 04/26/23 19:06 Source: patient Mode of arrival: ambulatory Limitations: language barrier (Armenian-speaking emergency medical technician utilized) History of Present Illness HPI Narrative: Patient is a 38-year-old female presents emergency department for evaluation of sore throat and painful swallowing. Onset of symptoms was 2 days ago. She reports a patch of redness to a with of her mouth this painful, with a clear fluid-filled bump on it, she does state that yesterday she consumed a piece of meat that was very hot and she felt as though it burned of the roof of her mouth. She also states she has been having a cough as well as nasal congestion. Related Data Previous Rx's Medication Instructions Recorded albuterol sulfate 1.25 mg/3 mL 1.25 mg (3 mL) inhalation QID PRN 03/05/21 solution for nebulization shortness of breath or wheezing 30 days #75 mL nebulizers (AeroEclipse II #1 ea 03/05/21 Nebulizer) diphenhydramine HCl 25 mg capsule 25 mg PO BEDTIME PRN itching #10 07/06/21 (Benadryl) caps cholecalciferol (vitamin D3) 50 50 mcg PO DAILY 90 days #90 caps 11/16/22 mcg (2,000 unit) capsule escitalopram oxalate 5 mg tablet 5 mg PO DAILY 90 days #90 tabs 11/16/22 montelukast 10 mg tablet 10 mg PO BEDTIME 30 days #30 tabs 11/16/22 clonazepam 0.5 mg tablet 0.25 mg (1/2 x 0.5 mg) PO BEDTIME 12/16/22 30 days #30 tabs Ventolin HFA 90 mcg/actuation 2 puff inhalation Q6H PRN 03/11/23 aerosol inhaler (albuterol sulfate) shortness of breath or wheezing 30 days #18 grams cyclobenzaprine 10 mg tablet 10 mg PO BID 5 days #10 tabs 03/11/23 ibuprofen 800 mg tablet 800 mg PO Q8H PRN pain 90 days 03/11/23 #270 tabs omeprazole 40 mg capsule,delayed 40 mg PO DAILY #30 caps 03/11/23 release Allergies Allergy/AdvReac Type Severity Reaction Status Date / Time No Known Allergies Allergy Verified 04/26/23 16:17 [No Known Allergies*] Review of Systems Review of Systems: Yes all other systems are reviewed and are negative [facility] Past Medical History Attestation statement: The following information was validated with the patient. Source: old records reviewed Medical History Hypovitaminosis D Immunization due Hair loss Mild persistent asthma GERD (gastroesophageal reflux disease) Mild asthma Ankle pain Smoker Obese Chronic fatigue Insomnia Muscle spasm Depression with anxiety Surgical History History of section Family History Family History Father Lung cancer Liver cancer Mother Diabetes Brother Aortic heart murmur Maternal Aunt Uterine cancer Breast cancer Social History Social History Housing: Apartment Alcohol intake: current Alcohol intake frequency: a few times a month Alcohol type: beer and wine Patient Tobacco Use Status: Current everyday Tobacco user Tobacco use type: Cigarette Cigarettes Per Day: 4 Years Smoked: 20 e-Cigarette/Vaping Use: Never Used Second Hand Smoke Exposure: Yes Substance Use Type: Marijuana Advance Directives: No Advance Directives Information Provided: No service: No Current occupational status: employed 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 No acute distress.?Normal affect. Eyes: Pupils equal, round and reactive to light.? ENT: TM normal bilaterally. Pharynx erythematous with 2+ tonsillar hypertrophy bilaterally. No exudates. Uvula midline. No trismus. No drooling. % roof of mouth with transition point between soft and hard palate with patch of erythema and a single clear vesicle ? Neck: Normal inspection.? Neck supple.??No cervical adenopathy CVS: Heart sounds normal. Normal heart rate and rhythm.? Pulses normal.?? Respiratory: No respiratory distress.? Lung sounds clear to auscultation bilaterally?? Abdomen: Soft and non-tender. Normoactive bowel sounds. Skin: Skin warm and dry.? Normal skin color.? ? Extremities: No lower extremity edema.? Neuro: Moves all extremities spontaneously. Sensation intact bilaterally. No motor deficits. Ambulates with normal steady gait. Medical Decision Making Medical Decision Making [facility] Narrative: Patient is a 38-year-old female presenting for evaluation of upper respiratory symptoms with sore throat. Physical examination with notable pharyngitis, not consistent with peritonsillar retropharyngeal abscess. Concern for possible thermal burn to roof of the mouth versus possible H is be given vesicular eruption, patient denies concern for such and denies testing for HSV. COVID-19 testing negative. Influenza B testing is positive. Strep a testing negative. At this time history and physical exam not consistent with pneumonia. Well-appearing, nontoxic, afebrile, no tachycardia or tachypnea/hypoxia. Speaking clear full sentences, ambulatory with steady gait. Able to tolerate solids and liquids without complication. Duration of symptoms is greater than 3 days, would not be a candidate for Tamiflu at this time. Discussed conservative treatment including rest, hydration, Tylenol/ibuprofen as needed for fever and body aches, saline nasal spray, humidifier, [id number] cold medication. Advised to follow-up with primary care provider as needed, discussed reasons to return back to the emergency department. All questions were answered. Patient discharged home in stable condition. Differential Diagnosis Differential Diagnoses: The differential diagnosis associated with the presentation includes (As noted above) Admission/Observation Consideration of admission/observation: Escalation of care including admission/observation considered (See narrative above) Lab Data [facility] Lab Attestation statement: I reviewed the patient's lab results. (See narrative above) Labs: Lab Results 04/26/23 04/26/23 Range/Units 20:07 21:11 COVID-19 (NABILA) Negative (Negative) COVID-19 Clin Com See Note Influenza Type A (QUETA) Negative (Negative) Influenza Type B (QUETA) Positive A (Negative) Influenza A & B Note See Note S. pyogenes GrpA QUETA Negative (Negative) External Record Review External record reviewed: Outpatient record Prescription Management I considered prescription management with: Antiviral (See narrative above) Discharge Plan Discharge Clinical Impression: Influenza B Patient Disposition: Home, Self-Care Instructions: Influenza (ED) Additional Instructions: Be sure to rest, stay well hydrated drinking plenty of fluids, eat small frequent meals. Tylenol/ibuprofen can be used as needed for fever/pain. Sdzf-vwa-itsfggu cold medications may be helpful as well for symptoms. Saline nasal spray, humidifier may be helpful for nasal congestion. You may return to the emergency department with any new or worsening symptoms or concerns. Follow-up with your primary care provider as needed. Should remain out of school/ work until symptoms have resolved and have been without a fever for 24 hours without the use of Tylenol or ibuprofen. Prescriptions: No Action clonazepam 0.5 mg tablet 0.25 mg PO BEDTIME 30 Days Qty: 30 0RF Rx Instructions: administer 30 minutes before bedtime albuterol sulfate 1.25 mg/3 mL solution for nebulization 1.25 mg inhalation QID PRN (Reason: shortness of breath or wheezing) 30 Days Qty: 75 1RF (DME) AeroEclipse II Nebulizer [facility] See Rx Instructions .Route Qty: 1 0RF Rx Instructions: As directed diphenhydramine HCl [Benadryl] 25 mg capsule 25 mg PO BEDTIME PRN (Reason: itching) Qty: 10 0RF cholecalciferol (vitamin D3) 50 mcg (2,000 unit) capsule 50 mcg PO DAILY 90 Days Qty: 90 3RF escitalopram oxalate 5 mg tablet 5 mg PO DAILY 90 Days Qty: 90 1RF montelukast 10 mg tablet 10 mg PO BEDTIME 30 Days Qty: 30 1RF omeprazole 40 mg capsule,delayed release(DR/EC) 40 mg PO DAILY Qty: 30 6RF ibuprofen 800 mg tablet 800 mg PO Q8H PRN (Reason: pain) 90 Days Qty: 270 1RF cyclobenzaprine 10 mg tablet 10 mg PO BID 5 Days Qty: 10 0RF albuterol sulfate [Ventolin HFA] 90 mcg/actuation HFA aerosol inhaler 2 puff inhalation Q6H PRN (Reason: shortness of breath or wheezing) 30 Days Qty: 18 2RF Referrals: Roxanne Abdalla MD [Primary Care Provider] -
[2023-04-26 20:26] LABS: COVID-19 Test Negative (Negative); IDNOW Serial# 08D9AD1C
[2023-04-26 20:38] LABS: IDNOW Serial# 9DB6401D; Influenza A Negative (Negative); Influenza B2 Positive (Negative)
[2023-04-26 21:28] LABS: IDNOW Serial# 58CA691E; Strep A Nucleic Acid Negative (Negative)
== END 2023-04-26 22:00 | disposition home or self-care (01) ==
PROVIDERS: Nurse Practitioner Family; Emergency Provider Emergency Medicine; PCP Internal Medicine
DX: J10.1 Influenza due to other identified influenza virus with other respiratory manifestations (principal); R13.10 Dysphagia, unspecified; R05.9 Cough, unspecified; Z79.899 Other long term (current) drug therapy; Z11.52 Encounter for screening for COVID-19; Z20.822 Contact with and (suspected) exposure to COVID-19
CPT/HCPCS: 87502; 87635; 87651; 99283; 99284

== ENCOUNTER 2023-06-09 10:02 | Outpatient (REF) | payer OTHER, SELFPAY ==
--- NOTE | ~2023-06-09 | XR_ITS ---
EXAMINATION: XR CHEST CLINICAL INFORMATION: Reason for Exam R07.9 - Chest pain, unspecified COMPARISON: Chest radiograph 08/23/2021 TECHNIQUE: 2 views of the chest FINDINGS: Lines and tubes: None. Clear lungs. No pleural effusion. No pneumothorax. Normal cardiomediastinal silhouette. XR/XR chest 2V IMPRESSION: * Clear lungs.
[2023-06-09 10:31] LABS: MANUAL DIFF FLAG NO
[2023-06-09 10:48] LABS: Basophils Absolute Auto 0.1 X10*3/uL (0.0-0.2); Basophils Percent Auto 0.7 % (0-2); Eosinophils Absolute Auto 0.4 X10*3/uL (0.0-0.4); Eosinophils Percent Auto 4.5 % (0-4); Hematocrit 42.9 % (37.0-47.0); Hemoglobin 14.9 g/dl (12.0-16.0); Imm Gran Abs Auto 0.03 X10*3/uL (0.00-0.03); Imm Gran Pct Auto 0.3 % (0.0-0.4); Lymphocytes Absolute Auto 3.4 X10*3/uL (1.2-4.9); Lymphocytes Percent Auto 38.4 % (20-40); Mean Corpuscular HGB Conc 34.7 g/dl (31.0-35.0); Mean Corpuscular Hemoglobin 32.3 pg (27.0-33.0); Mean Corpuscular Volume 92.9 fL (80.0-98.0); Mean Platelet Volume 10.4 fL (9.4-12.3); Monocytes Absolute Auto 0.6 X10*3/uL (0.1-1.2); Monocytes Percent Auto 6.2 % (2-11); Neutrophils Absolute Auto 4.4 x10*3/uL (2.0-8.3); Neutrophils Percent Auto 49.9 % (45-73); Platelet Count 279 X10*3/uL (160-400); Red Blood Count 4.62 X10*6/uL (4.20-5.50); Red Cell Distribution Width 12.5 % (11.0-16.0); White Blood Count 8.9 X10*3/uL (4.8-10.8)
[2023-06-09 11:34] LABS: Alanine Aminotransferase 20 U/L (0-31); Albumin Level 4.2 g/dL (3.5-5.0); Alkaline Phosphatase 89 U/L (39-117); Anion Gap 9 (12-20); Aspartate Amino Transferase 17 U/L (5-31); Bilirubin Total 0.4 mg/dL (0.0-1.0); Blood Urea Nitrogen 11 mg/dL (9-16); Calcium 9.2 mg/dL (8.4-10.2); Carbon Dioxide 27 mmol/L (22-29); Chloride 104 mmol/L (96-108); Cholesterol 196 mg/dL (<200); Estimated Glomerular Filt Rate > 60; Glucose Fasting 97 mg/dL (60-99); HDL Cholesterol 60 mg/dL (>40); LDL Cholesterol Calculated 124 mg/dL (<100); Potassium 4.1 mmol/L (3.3-5.1); Sodium 136 mmol/L (135-145); Total Protein 6.9 g/dL (6.5-8.0); Triglycerides 64 mg/dL (<150)
[2023-06-09 11:37] LABS: Thyroid Stimulating Hormone 0.47 uIU/mL (0.32-4.0); Vitamin D 25-OH Total 13.6 ng/mL (>30)
[2023-06-09 16:15] LABS: CT PCR NOT DETECTED (Not Detect.); NG PCR NOT DETECTED (Not Detect.)
[2023-06-10 08:41] LABS: BV Int Neg Control Negative (Negative); BV Int Pos Control Positive (Positive)
== END 2023-06-09 10:03 | disposition home or self-care (01) ==
LOC: HO.LAB 10:02
PROVIDERS: Obstetrics & Gynecology; PCP Internal Medicine; Visit Provider Internal Medicine
DX: Z01.419 Encounter for gynecological examination (general) (routine) without abnormal findings (principal); Z11.3 Encounter for screening for infections with a predominantly sexual mode of transmission; N93.0 Postcoital and contact bleeding; R07.9 Chest pain, unspecified; M54.6 Pain in thoracic spine; D64.9 Anemia, unspecified; E78.5 Hyperlipidemia, unspecified; E55.9 Vitamin D deficiency, unspecified
CPT/HCPCS: 0353U; 36415; 71046; 80053; 80061; 82306; 84443; 85025; 87480; 87510; 87660; 99385

== ENCOUNTER 2023-06-09 10:10 | Outpatient (AMB) | payer OTHER, SELFPAY ==
[2023-06-09 10:28] VITALS: BMI 34.9
--- NOTE | 2023-06-09 10:28 | MHC.OFFVIS ---
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 Complaining of bleeding after intercourse, the patient is requesting STD screen Last Pap/HPV was in 09/16 was negative [facility] Medical History Hypovitaminosis D Immunization due Hair loss Mild persistent asthma GERD (gastroesophageal reflux disease) Mild asthma Ankle pain Smoker Obese Chronic fatigue Insomnia Muscle spasm Depression with anxiety Surgical History History of section Family History Father Lung cancer Liver cancer Mother Diabetes Brother Aortic heart murmur Maternal Aunt Uterine cancer Breast cancer Social History Housing: Apartment Alcohol intake: never Patient Tobacco Use Status: Current everyday Tobacco user Tobacco use type: Cigarette Cigarettes Per Day: 4 Years Smoked: 20 e-Cigarette/Vaping Use: Never Used Second Hand Smoke Exposure: Yes Substance Use Type: Marijuana service: No Current occupational status: employed 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 Current occupational exposures/hazards: No Sexual orientation: Straight/Heterosexual Cognitive needs: No Hearing needs: No Vision needs: No Female Reproductive History Menstrual Age of Menarche: 11 Duration of menses: 3-5 days Date of last menstrual period: 05/26/23 control method: none Total pregnancies: 6 Full term: 3 Number of Living Children: 3 Ab induced: 3 Date of last pap smear: 09/28/17 Review of Systems Const All systems reviewed & are unremarkable except as noted in HPI and below Card Reports as per HPI Resp Reports as per HPI GI Reports as per HPI and Reports no additional complaints Reports as per HPI Physical Exam Vital Signs: Last Vital Signs BP 120/70 06/09/23 10:58 BMI result Body Mass Index 35.7 Const General: cooperative, healthy appearing and comfortable Chest Chest palpation & inspection: normal inspection of the chest and normal palpation of entire chest wall Breast/axilla inspection: normal inspection of the breasts and normal inspection of the axillae Breast/axilla palpation: normal palpation of the breasts, normal palpation of the axillae and no axillary lymphadenopathy Resp Effort & Inspection: normal respiratory effort Auscultation: clear to auscultation bilaterally Percussion: percussion normal Cardio Palpation: normal PMI Rate: regular rate Rhythm: regular rhythm Heart sounds: no murmurs and no rubs Peripheral pulses: Peripheral pulses 2+ throughout GI Inspection: Yes normal to inspection Palpation (GI): Soft to palpation, nontender, no guarding, not rigid and No hepatosplenomegaly present Percussion: Yes normal to percussion Auscultation: normal bowel sounds Rectal Exam - Female: deferred General: Yes bladder normal to palpation External Female Exam: No lesion Speculum Exam - Vagina: normal appearance of the vagina, normal palpation, normal vaginal discharge and not erythematous Speculum Exam - Cervix: normal appearance of the cervix and normal palpation Bimanual exam- vagina & uterus: normal bimanual exam, normal palpation, uterine size normal, bladder normal to palpation, consistency normal and normal palpation Bimanual Exam- Adnexa, other: normal adnexae, no masses and no tenderness Assessment & Plan Assessment & Plan (1) Well woman exam: Code(s): Z01.419 - Encounter for gynecological examination (general) (routine) without abnormal findings Plan: Cotesting done. Counseled the patient about the recommended dietary allowance of 1000 mg of Calcium & 600 IU of vitamin D. The patient was instructed to perform monthly self-breast exams and to schedule an annual exam in a year; All questions answered and the patient verbalized understanding. Instructed the patient to schedule annual exam in a year (2) Screen for STD (sexually transmitted disease): Code(s): Z11.3 - Encounter for screening for infections with a predominantly sexual mode of transmission Plan: STD screening tests done includes: BV panel for trichomonas, GC/CT will send patient for serology std screening for HIV, RPR, Hep b s Ag, HepC Ab. Instructions given the patient to schedule a follow-up appointment for repeat serology screen in 6 months for possible false negatives. (3) Postcoital bleeding: Code(s): N93.0 - Postcoital and contact bleeding Plan: Discussed with the patient possible causes of postcoital bleeding. GC/CT with co testing taken. Pelvic ultrasound ordered. Instructions given the patient to schedule EMB/ECC appointment to rule out endometrial/endocervical pathology including endometrial hyperplasia or malignancy. All questions answered, the patient verbalized understanding Orders: Orders Hepatitis B Surface Antigen Today Z20.2 - Contact with and (suspected) exposure to infections with a predominantly sexual mode of transmission US pelvic and transvaginal Today N93.0 - Postcoital and contact bleeding Hepatitis C Antibody Today Z20.2 - Contact with and (suspected) exposure to infections with a predominantly sexual mode of transmission Syphilis Screen Today Z20.2 - Contact with and (suspected) exposure to infections with a predominantly sexual mode of transmission HIV Ab/Ag Today Z20.2 - Contact with and (suspected) exposure to infections with a predominantly sexual mode of transmission Quality Reporting (2019) Adult ([facility] 138//) Smoking risk assessment performed?: Yes Patient Tobacco Use Status: Current everyday Tobacco user Coding Level of Care Code New Pt Prev Care 18-39yr([id number] Diagnoses Well woman exam Z01.419 Screen for STD (sexually transmitted disease) Z11.3 Postcoital bleeding N93.0
[2023-06-09 10:58] VITALS: BP 120/70; BMI 35.7
== END 2023-06-09 11:20 | disposition home or self-care (01) ==
PROVIDERS: PCP Internal Medicine; Visit Provider Obstetrics & Gynecology
DX: Z01.419 Encounter for gynecological examination (general) (routine) without abnormal findings (principal); Z11.3 Encounter for screening for infections with a predominantly sexual mode of transmission; N93.0 Postcoital and contact bleeding
CPT/HCPCS: 99385; 99395

== ENCOUNTER 2023-06-09 11:16 | Outpatient (REF) | payer OTHER, SELFPAY ==
[2023-06-13 20:09] LABS: HPV mRNA E6/E7 rflx Not Detected (Not Detected)
== END 2023-06-09 11:17 | disposition home or self-care (01) ==
LOC: HO.LNP 11:16
PROVIDERS: Visit Provider Obstetrics & Gynecology
DX: Z01.419 Encounter for gynecological examination (general) (routine) without abnormal findings (principal); Z11.51 Encounter for screening for human papillomavirus (HPV)
CPT/HCPCS: 87624; 88142

== ENCOUNTER 2023-08-02 08:51 | Emergency (ER) | payer OTHER, SELFPAY ==
--- NOTE | ~2023-08-02 | XR_ITS ---
EXAMINATION: XR CHEST CLINICAL INFORMATION: Dyspnea, cough COMPARISON: Chest 2 12/24/2023, 05/04/2017 TECHNIQUE: 2 views of the chest were obtained. FINDINGS: No significant abnormality is noted involving the heart, lungs, mediastinum, bony thorax or soft tissues. XR/XR chest 2V IMPRESSION: No acute cardiopulmonary disease.
--- NOTE | 2023-08-02 08:55 | ECG_ITS ---
Test Reason : cp Blood Pressure : / mmHG Vent. Rate : 078 BPM Atrial Rate : 078 BPM P-R Int : 136 ms QRS Dur : 094 ms QT Int : 360 ms P-R-T Axes : 043 070 038 degrees QTc Int : 410 ms Normal sinus rhythm Normal ECG When compared with ECG of 23-JAN-2021 19:46, No significant change was found Referred By: Generic ED Physician Electronically Signed By:DUY BURR MD
[2023-08-02 08:57] VITALS: BP 117/73; PULSE 79; RESP 17; TEMP 36.7; O2SAT 99; BMI 35.1
[2023-08-02 10:07] LABS: Influenza A PCR NEGATIVE (Negative); Influenza B PCR POSITIVE (Negative); Resp Syncy Virus RNA Qual PCR NEGATIVE (Negative); SARS COV2 PCR INHOUSE NEGATIVE (Negative)
--- NOTE | 2023-08-02 11:01 | ED.URI ---
HPI - URI/Sore Throat General Chief Complaint: Upper Respiratory Symptoms Stated Complaint: CP x 24 Hrs Cold Symptoms Time Seen by Provider: 08/02/23 09:37 Source: patient and RN notes reviewed Mode of arrival: ambulatory Limitations: no limitations History of Present Illness HPI Narrative: This is a 38-year-old female, with a history of asthma, who presents emergency department with complaints of cough, body aches, and subjective fevers and chills. Patient states that her symptoms started 4 days ago with a cough. She states that yesterday she then developed body aches, and chest pain which occurs only with coughing. She states that she has been taking ibuprofen for her symptoms which has provided her with some relief. She states that her neighbors child just tested positive for the flu. Patient denies any headache, dizziness, shortness of breath, wheezing, abdominal pain, nausea, vomiting diarrhea, or urinary symptoms. She denies any palpitations. No other complaints or concerns at this time. MD elicited complaint: cough and nasal congestion Pertinent past history: asthma Onset (ago): day(s) Consistency: constant Severity: moderate Able to tolerate fluids by mouth: Yes Exacerbating factors: nothing Relieving factors: NSAID Context: sick contacts Associated symptoms: chills and nasal congestion Treatments prior to arrival: none Related Data Previous Rx's Medication Instructions Recorded albuterol sulfate 1.25 mg/3 mL 1.25 mg (3 mL) inhalation QID PRN 03/05/21 solution for nebulization shortness of breath or wheezing 30 days #75 mL nebulizers (AeroEclipse II #1 ea 03/05/21 Nebulizer) diphenhydramine HCl 25 mg capsule 25 mg PO BEDTIME PRN itching #10 07/06/21 (Benadryl) caps escitalopram oxalate 5 mg tablet 5 mg PO DAILY 90 days #90 tabs 11/16/22 clonazepam 0.5 mg tablet 0.25 mg (1/2 x 0.5 mg) PO BEDTIME 12/16/22 30 days #30 tabs Ventolin HFA 90 mcg/actuation 2 puff inhalation Q6H PRN 03/11/23 aerosol inhaler (albuterol sulfate) shortness of breath or wheezing 30 days #18 grams cyclobenzaprine 10 mg tablet 10 mg PO BID 5 days #10 tabs 03/11/23 ibuprofen 800 mg tablet 800 mg PO Q8H PRN pain 90 days 03/11/23 #270 tabs omeprazole 40 mg capsule,delayed 40 mg PO DAILY #30 caps 03/11/23 release cholecalciferol (vitamin D3) 50 50 mcg PO DAILY 90 days #90 caps 06/12/23 mcg (2,000 unit) capsule acetaminophen 650 mg 650 mg PO Q8H PRN fever or pain 08/02/23 tablet,extended release (Tylenol 8 #30 tabs Hour) benzonatate 200 mg capsule 200 mg PO TID PRN cough #12 caps 08/02/23 ibuprofen 600 mg tablet 600 mg PO Q6H PRN fever or pain 08/02/23 #30 tabs Allergies Allergy/AdvReac Type Severity Reaction Status Date / Time No Known Allergies Allergy Verified 06/09/23 11:03 [No Known Allergies*] Review of Systems Review of Systems: Yes all other systems are reviewed and are negative Constitutional: Constitutional: Reports as per [facility] Past Medical History Attestation statement: The following information was validated with the patient. Medical History Hypovitaminosis D Immunization due Hair loss Mild persistent asthma GERD (gastroesophageal reflux disease) Mild asthma Ankle pain Smoker Obese Chronic fatigue Insomnia Muscle spasm Depression with anxiety Surgical History History of section Family History Family History Father Lung cancer Liver cancer Mother Diabetes Brother Aortic heart murmur Maternal Aunt Uterine cancer Breast cancer Social History Social History Housing: Apartment Alcohol intake: never Patient Tobacco Use Status: Current everyday Tobacco user Tobacco use type: Cigarette Cigarettes Per Day: 4 Years Smoked: 20 e-Cigarette/Vaping Use: Never Used Second Hand Smoke Exposure: Yes Substance Use Type: Marijuana Advance Directives: No service: No Current occupational status: employed 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 Current occupational exposures/hazards: No Sexual orientation: Straight/Heterosexual Cognitive needs: No Hearing needs: No Vision needs: No Physical Exam Vital Signs: Vital Signs: Last Vital Signs Temp 97.8 F 08/02/23 11:17 Pulse 63 08/02/23 11:17 Resp 16 08/02/23 11:17 BP 123/61 08/02/23 11:17 Pulse Ox 95 08/02/23 11:17 O2 Del Method Room Air 08/02/23 11:17 BMI result Body Mass Index 35.1 Const: General: cooperative, comfortable and no acute distress Orientation/consciousness: patient oriented x3 Limitations: no limitations HEENT: Head: Yes normal to inspection, Yes normocephalic and Yes atraumatic Ears: hearing grossly normal bilaterally and TM's normal bilaterally General nose exam: Normal external nose present Face and sinus: Yes normal facial exam Mouth: Normal oral and palatal mucosa present, oropharynx normal, moist mucous membranes, no audible dysphonia, no drooling and no trismus Teeth and gingiva: dentition normal and gingiva normal Throat: Yes posterior oropharynx normal Eyes: General: appearance normal, both eyes and all related structures Eyelids: Yes eyelids normal Conjunctivae: conjunctivae normal Sclerae: sclerae normal Pupils: Equal, round and reactive pupils present EOM: EOMs intact bilaterally Neck: Neck: Yes normal visual inspection, Yes full ROM and Yes no lymphadenopathy Lymphatic: no lymphadenopathy noted Chest: Chest palpation & inspection: normal inspection of the chest Resp: Effort & Inspection: normal respiratory effort and able to speak in complete sentences Auscultation: clear to auscultation bilaterally, no crackles, no rales, no rhonchi and no wheezes Cardio: Rate: regular rate Rhythm: regular rhythm Heart sounds: S1 normal heart sound present and S2 normal heart sound present GI: Other: Abdomen is soft, nontender, nondistended Inspection: Yes normal to inspection Skin: General skin exam: no rashes or lesions noted Trauma: no lacerations or abrasions Wounds: no wounds Neuro: General: patient oriented x3 and moves all extremities Cranial nerves: Yes Equal, round and reactive pupils present Extrem: General: Yes normal to inspection Right upper extremity: normal to inspection Left upper extremity: normal to inspection Right lower extremity: normal to inspection Left lower extremity: normal to inspection Course Reevaluation(s) Reevaluation #1: Patient tested positive for influenza B, EKG normal sinus rhythm no ST elevation or depression. Discussed findings with patient. Chest x-ray unremarkable. Will treat conservatively given return precautions. She understands and agrees with plan. Patient stable for discharge. Time: 11:14 Medical Decision Making Medical Decision Making [facility] Narrative: This is a 38-year-old female, with a history of asthma, who presents to the emergency department complaints of cough, body aches, subjective fevers and chills. She states that her symptoms started 4-5 days ago. States that her symptoms worsened yesterday with body aches, and chest pain which only occurs with coughing. On arrival, vital signs within normal limits. She is speaking in full sentences, under no acute respiratory distress. Differential diagnoses include URI, flu, COVID, bronchitis, pneumonia. Less likely ACS given presentation, pneumothorax. Plan: Chest x-ray, EKG, viral swabs Differential Diagnosis Differential Diagnoses: The differential diagnosis associated with the presentation includes See above Lab Data [facility] Lab Attestation statement: I reviewed the patient's lab results. Labs: Lab Results 08/02/23 Range/Units 09:13 Influenza Type A (PCR) NEGATIVE (Negative) Influenza Type B (PCR) POSITIVE A (Negative) RSV RNA Qual (PCR) NEGATIVE (Negative) SARS-CoV-2 RNA (RT-PCR) NEGATIVE (Negative) Independent Interpretation I performed an independent interpretation of an: EKG Interpretation: EKG normal sinus rhythm at a ventricular rate of 78 beats per minute, QTC 410, no ST elevation or depression X-ray was reviewed by me, no acute consolidation seen. Radiology Impression Discussion of test interpretation with radiology: I have reviewed the radiologist's reading. Radiologist Impression: EXAMINATION: XR CHEST CLINICAL INFORMATION: Dyspnea, cough COMPARISON: Chest 2 12/24/2023, 05/04/2017 TECHNIQUE: 2 views of the chest were obtained. FINDINGS: No significant abnormality is noted involving the heart, lungs, mediastinum, bony thorax or soft tissues. XR/XR chest 2V IMPRESSION: No acute cardiopulmonary disease. Dictated By: Crystal Cardenas MD Discharge Plan Discharge Clinical Impression: Influenza B Patient Disposition: Home, Self-Care Instructions: Influenza (ED) Additional Instructions: You were seen in the emergency department today and tested positive for the flu. The fluids a virus, you do not need antibiotics at this time. Your EKG was reassuring, in your chest x-ray was normal. It is very important that you get plenty of rest, drink plenty of fluids and alternate between ibuprofen and Tylenol as needed for pain and/or fevers. I am also prescribing you Tessalon, this is a cough medication that is suppresses the urge to cough. Take as needed. Follow-up with your primary care physician as needed. If any new or worsening symptoms occur including but not limited to chest pain, shortness of breath, please return for re-evaluation. Prescriptions: New ibuprofen 600 mg tablet 600 mg PO Q6H PRN (Reason: fever or pain) Qty: 30 0RF acetaminophen [Tylenol 8 Hour] 650 mg tablet extended release 650 mg PO Q8H PRN (Reason: fever or pain) Qty: 30 0RF benzonatate 200 mg capsule 200 mg PO TID PRN (Reason: cough) Qty: 12 0RF No Action clonazepam 0.5 mg tablet 0.25 mg PO BEDTIME 30 Days Qty: 30 0RF Rx Instructions: administer 30 minutes before bedtime cholecalciferol (vitamin D3) 50 mcg (2,000 unit) capsule 50 mcg PO DAILY 90 Days Qty: 90 3RF albuterol sulfate 1.25 mg/3 mL solution for nebulization 1.25 mg inhalation QID PRN (Reason: shortness of breath or wheezing) 30 Days Qty: 75 1RF (DME) AeroEclipse II Nebulizer Misc See Rx Instructions .Route Qty: 1 0RF Rx Instructions: As directed diphenhydramine HCl [Benadryl] 25 mg capsule 25 mg PO BEDTIME PRN (Reason: itching) Qty: 10 0RF escitalopram oxalate 5 mg tablet 5 mg PO DAILY 90 Days Qty: 90 1RF omeprazole 40 mg capsule,delayed release(DR/EC) 40 mg PO DAILY Qty: 30 6RF ibuprofen 800 mg tablet 800 mg PO Q8H PRN (Reason: pain) 90 Days Qty: 270 1RF cyclobenzaprine 10 mg tablet 10 mg PO BID 5 Days Qty: 10 0RF albuterol sulfate [Ventolin HFA] 90 mcg/actuation HFA aerosol inhaler 2 puff inhalation Q6H PRN (Reason: shortness of breath or wheezing) 30 Days Qty: 18 2RF Stand Alone Forms: Work/School Release Discharge Date/Time: 08/02/23 11:18
[2023-08-02 11:17] VITALS: BP 123/61; PULSE 63; RESP 16; TEMP 36.6; O2SAT 95
== END 2023-08-02 11:18 | disposition home or self-care (01) ==
PROVIDERS: Emergency Provider Emergency Medicine; PCP Internal Medicine
DX: J10.1 Influenza due to other identified influenza virus with other respiratory manifestations (principal); J45.909 Unspecified asthma, uncomplicated
CPT/HCPCS: 0241U; 71046; 93005; 99283

== ENCOUNTER → 2023-08-02 08:55 | Outpatient (BNV) | payer OTHER, SELFPAY | PROVIDERS: Emergency Provider Emergency Medicine; PCP Internal Medicine; Visit Provider Internal Medicine Cardiovascular Disease | DX: R07.9 Chest pain, unspecified (principal) | CPT/HCPCS: 93010 ==

== ENCOUNTER 2023-10-31 13:19 | Outpatient (REF) | payer OTHER, SELFPAY ==
--- NOTE | ~2023-10-31 | US_ITS ---
EXAMINATION: US PELVIS CLINICAL INFORMATION: Postcoital and contact bleeding LMP 10/13/2023 COMPARISON: None available. TECHNIQUE: Ultrasound of the pelvis is performed using both transabdominal and transvaginal transducers along with Doppler. Transvaginal imaging is performed due to inadequate visualization transabdominally. FINDINGS: Uterus: The uterus is anteverted and measures 10.0 x 5.0 x 6.0 cm. 2.6 x 1.3 x 1.9 cm subserosal fibroid in the body the uterus and 0.9 x 1.1 x 1.2 cm partially exophytic fibroid in the body of the uterus are seen. The endometrial thickness is 1.3 cm. Adnexa: Both ovaries are visualized. There is normal color flow to the adnexa. There is no ovarian torsion. There is no pelvic ascites or fluid collection. Right ovary measures 2.3 x 3.3 x 2.2 cm. Volume 8.7 mL. Left ovary measures 2.0 x 2.5 x 2.1 cm. Volume 4.8 mL. US/US pelvic and transvaginal IMPRESSION: 1. 2 uterine fibroids. 2. Normal ovaries.
[2023-11-01 07:42] LABS: HBsAGNum1 0.35 S/CO (0.00-0.99); HIV AB/AG Nonreactive (Nonreactive); HIV Num 1 0.04 S/CO (0.00-0.99); Hepatitis B Surface Antigen Negative (Negative); ~HepC Num1 0.06 S/CO (0.00-0.79); ~Hepatitis C Antibody Nonreactive (Nonreactive)
[2023-11-01 07:52] LABS: Syphilis Screen Nonreactive (Nonreactive)
== END 2023-10-31 13:20 | disposition home or self-care (01) ==
LOC: HO.US 13:19
PROVIDERS: PCP Internal Medicine; Visit Provider Obstetrics & Gynecology
DX: N93.0 Postcoital and contact bleeding (principal); Z20.2 Contact with and (suspected) exposure to infections with a predominantly sexual mode of transmission
CPT/HCPCS: 36415; 76830; 76856; 86780; 86803; 87340; 87389

== ENCOUNTER 2023-11-18 14:49 | Emergency (ER) | payer OTHER, SELFPAY ==
[2023-11-18 14:52] VITALS: BP 127/100; PULSE 70; RESP 19; TEMP 36.6; O2SAT 98; BMI 35.5
--- NOTE | 2023-11-18 14:54 | ED_ITS ---
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 She states that she woke up with her tonsils hurting and she felt warm. Initially, she took ibuprofen, which provided some relief. Later in the day at work, her right eye started to itch and get watery. Additional symptoms include itching in the left ear, nasal congestion, pain with swallowing, but no difficulty swallowing. She reports being near dogs recently and notes that her son is allergic to dogs. She denies cough, vision changes, chest pain, palpitations, nausea, vomiting, abdominal pain, urinary symptoms, fever, chills, or body aches. Denies recent ill contacts and recent travel. Onset (ago): hour(s) Severity: mild Severity scale (1-10): 4 Quality: aching Pain Consistency: constant Relieving factors: none Exacerbating factors: none Treatments prior to arrival: none Related Data Previous Rx's ?Medication ?Instructions ?Recorded albuterol sulfate 1.25 mg/3 mL 1.25 mg (3 mL) inhalation QID PRN 03/05/21 solution for nebulization shortness of breath or wheezing 30 days #75 mL nebulizers (AeroEclipse II #1 ea 03/05/21 Nebulizer) diphenhydramine HCl 25 mg capsule 25 mg PO BEDTIME PRN itching #10 07/06/21 (Benadryl) caps escitalopram oxalate 5 mg tablet 5 mg PO DAILY 90 days #90 tabs 11/16/22 clonazepam 0.5 mg tablet 0.25 mg (1/2 x 0.5 mg) PO BEDTIME 12/16/22 30 days #30 tabs Ventolin HFA 90 mcg/actuation 2 puff inhalation Q6H PRN 03/11/23 aerosol inhaler (albuterol sulfate) shortness of breath or wheezing 30 days #18 grams cyclobenzaprine 10 mg tablet 10 mg PO BID 5 days #10 tabs 03/11/23 ibuprofen 800 mg tablet 800 mg PO Q8H PRN pain 90 days 03/11/23 #270 tabs omeprazole 40 mg capsule,delayed 40 mg PO DAILY #30 caps 03/11/23 release cholecalciferol (vitamin D3) 50 50 mcg PO DAILY 90 days #90 caps 06/12/23 mcg (2,000 unit) capsule acetaminophen 650 mg 650 mg PO Q8H PRN fever or pain 08/02/23 tablet,extended release (Tylenol 8 #30 tabs Hour) benzonatate 200 mg capsule 200 mg PO TID PRN cough #12 caps 08/02/23 ibuprofen 600 mg tablet 600 mg PO Q6H PRN fever or pain 08/02/23 #30 tabs doxycycline hyclate 100 mg tablet 100 mg PO BID 7 days #14 tabs 11/18/23 Allergies Allergy/AdvReac Type Severity Reaction Status Date / Time No Known Allergies Allergy Verified 11/18/23 14:53 [No Known Allergies*] Review of Systems Constitutional: Constitutional: Reports no additional constitutional complaints, Denies chills, Denies fever(s), Denies headache(s) and Denies night sweats Eyes: Eyes: Reports no additional eye complaints, Denies blurry vision, Denies change in vision, Denies diplopia, Denies eye discharge, Reports itchy eyes, Denies loss of vision and Denies eye pain ENT: Denies dysphagia, Denies dizziness, Denies otalgia, Denies facial pain, Denies headache(s), Denies hearing loss, Reports nasal congestion and Reports sore throat Cardiovascular: Cardiovascular: Reports no additional cardiovascular complaints, Denies chest pain, Denies lightheadedness, Denies Loss of Consciousness and Denies dyspnea Respiratory: Respiratory: Reports no additional respiratory complaints and Denies dyspnea Gastrointestinal: Gastrointestinal: Reports no additional gastrointestinal complaints, Denies abdominal pain, Denies melena, Denies hematochezia, Denies change in bowel habits, Denies change in stool character and Denies dysphagia Genitourinary: Genitourinary: Denies hematuria, Denies urinary frequency, Denies dysuria, Denies urinary incontinence, Denies urinary hesitancy and Denies urinary urgency Musculoskeletal: Musculoskeletal: Reports no additional musculoskeletal complaints, Denies numbness and Denies tingling Neurologic: Denies dizziness, Denies headache(s), Denies loss of vision, Denies numbness and Denies tingling Psychiatric: Psychiatric: Reports no additional psychiatric complaints Endocrine: Endocrine: Reports no additional endocrine complaints Hematologic/Lymphatic: Hematologic/Lymphatic: Reports no additional hematologic/lymphatic complaints Allergic/Immunologic: Allergic/Immunologic: Reports no additional allergic/immunologic complaints and Reports itchy eyes PMFSH Past Medical History Attestation statement: The following information was validated with the patient. Source: old records reviewed and nursing notes reviewed Medical History Hypovitaminosis D Immunization due Hair loss Mild persistent asthma GERD (gastroesophageal reflux disease) Mild asthma Ankle pain Smoker Obese Chronic fatigue Insomnia Muscle spasm Depression with anxiety Surgical History History of section Family History Family History Father Lung cancer Liver cancer Mother Diabetes Brother Aortic heart murmur Maternal Aunt Uterine cancer Breast cancer Social History Social History Housing: Apartment Alcohol intake: never Patient Tobacco Use Status: Current everyday Tobacco user Tobacco use type: Cigarette Cigarettes Per Day: 4 Years Smoked: 20 e-Cigarette/Vaping Use: Never Used Second Hand Smoke Exposure: Yes Substance Use Type: Marijuana Advance Directives: No Advance Directives Information Provided: No service: No Current occupational status: employed 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 Current occupational exposures/hazards: No Sexual orientation: Straight/Heterosexual Cognitive needs: No Hearing needs: No Vision needs: No Physical Exam ED Vital Signs: Vital Signs - 24 hr 11/18/23 14:52 11/18/23 17:21 Temperature 98 F 98 F Pulse Rate 70 70 Respiratory Rate 19 19 Blood Pressure 127/100 H 127/100 H Pulse Oximetry 98 98 Oxygen Delivery Method Room Air Room Air BMI result Body Mass Index 35.5 Const General: cooperative, no acute distress, alert and awake Nutritional Appearance: well nourished Orientation/consciousness: patient oriented x3 Limitations: no limitations HENMT Head: Yes normal to inspection and Yes atraumatic Ears: hearing grossly normal bilaterally, external ears normal and TM's normal bilaterally General nose exam: Normal external nose present, no nasal discharge noted and no epistaxis Face and sinus: Yes normal facial exam, No abrasion and No laceration Mouth: Normal oral and palatal mucosa present, no drooling and no muffled voice Throat: Yes posterior oropharynx normal, Yes tonsils normal and Yes uvula midline Eyes General: appearance normal, both eyes and all related structures Periorbital: periorbital findings normal Eyelids: Yes eyelids normal Conjunctivae: conjunctivae normal Sclerae: sclerae normal Pupils: Equal, round and reactive pupils present EOM: EOMs intact bilaterally Neck Neck: Yes normal visual inspection, Yes full ROM and Yes no lymphadenopathy Thyroid: Thyroid normal Chest Chest palpation & inspection: normal inspection of the chest Resp Effort & Inspection: normal respiratory effort and able to speak in complete sentences Auscultation: clear to auscultation bilaterally Cardio Rate: regular rate Rhythm: regular rhythm GI Inspection: Yes normal to inspection Neuro General: patient oriented x3 and moves all extremities Cranial nerves: Yes Equal, round and reactive pupils present Cognition (Neuro): normal cognition Extrem General: Yes normal to inspection, Yes full ROM and Yes capillary refill normal Psych Appearance: grossly normal Mental Status: mental status grossly normal Affect: normal affect Attitude: cooperative Thought process: Normal thought process present Thought content: Normal thought content present Insight: Good insight present (Psych) Course Course Course Narrative: Reports that she woke this morning with a sore itchy throat and tactile fever. She purchased OTC phenol throat spray with some improvement. 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 After leaving the house she noticed swelling and itching to her eyes as well. She is speaking clear full sentences, lung sounds are clear bilaterally. Oropharynx is erythematous, uvula is midline, no trismus or drooling. She does admit that she has been suffering from allergies over the past 2 months. Plan: Viral panel strep a Medical Decision Making Medical Decision Making MDM Narrative: 38 year old assigned at female with a PMHx of asthma presents to the ER due to throat pain since this AM. On arrival the patient is hemodynamiclly stable and in no acute distress. Alert and oriented x3. Examination portrays mild swelling under right eye, bilateral sinus pressure to palpation. Otherwise, remaining PE is unremarkable. Serology results are negative for influenza A/B, RSV, SARS CoV, strep. Symptoms and exam is most consistent with acute sinusitis. Plan is to discharge patient, doxycycline prescribed. Return precautions discussed and patient has clear understanding. Differential Diagnosis Differential Diagnoses: The differential diagnosis associated with the presentation includes acute sinusititis, viral conjuctivitis, environemntal allergies, COVID, strep, RSV Admission/Observation Consideration of admission/observation: Escalation of care including a dmission/observation considered Patient would have been admitted to the hospital had her work up had any findings where hospital admission was appropriate and her clinical presentation warranted hospital admission. Lab Data MDM Lab Attestation statement: I reviewed the patient's lab results. My interpretation of these studies and their corresponding values is that they are grossly normal. Labs: Lab Results 11/18/23 Range/Units 15:19 Influenza Type A (PCR) NEGATIVE (Negative) Influenza Type B (PCR) NEGATIVE (Negative) RSV RNA Qual (PCR) NEGATIVE (Negative) SARS-CoV-2 RNA (RT-PCR) NEGATIVE (Negative) S. pyogenes GrpA QUETA Negative (Negative) Prescription Management I considered prescription management with: Antibiotic (patient prescribed an an tibiotic for sinusitis) Discharge Plan Discharge Clinical Impression: Sinusitis Patient Disposition: Home, Self-Care Instructions: Sinusitis (ED) Additional Instructions: Take your antibiotic as prescribed. Wear sunscreen while on it. Follow up with your primary care provider. Return to the emergency department immediately if your symptoms worsen or if you develop any dizziness, shortness of breath, difficulty breathing, chest pain, blurry vision, loss of vision, nausea, vomiting, abdominal pain, fever, chills, back pain, or any other complaints. [place] el antibi?ericka vini y mimi se lo preston recetado. Utiliza protecci?n solar mientras lo tomes. Pierre un seguimiento con bauman m?dico de cabecera. Acuda inme diatamente al servicio de urgencias si yuli s?ntomas empeoran o si presenta mareos, falta de aliento, dificultad para respirar, dolor tor?cico, visi?n borrosa, p?rdida de visi?n, n?useas, v?mitos, dolor abdominal, fiebre, escalofr?os, dolor de espalda o cualquier otra molestia. Prescriptions: New doxycycline hyclate 100 mg tablet 100 mg PO BID 7 Days Qty: 14 0RF No Action clonazepam 0.5 mg tablet 0.25 mg PO BEDTIME 30 Days Qty: 30 0RF Rx Instructions: administer 30 minutes before bedtime cholecalciferol (vitamin D3) 50 mcg (2,000 unit) capsule 50 mcg PO DAILY 90 Days Qty: 90 3RF ibuprofen 600 mg tablet 600 mg PO Q6H PRN (Reason: fever or pain) Qty: 30 0RF acetaminophen [Tylenol 8 Hour] 650 mg tablet extended release 650 mg PO Q8H PRN (Reason: fever or pain) Qty: 30 0RF benzonatate 200 mg capsule 200 mg PO TID PRN (Reason: cough) Qty: 12 0RF albuterol sulfate 1.25 mg/3 mL solution for nebulization 1.25 mg inhalation QID PRN (Reason: shortness of breath or wheezing) 30 Days Qty: 75 1RF (DME) AeroEclipse II Nebulizer [facility] See Rx Instructions .Route Qty: 1 0RF Rx Instructions: As directed diphenhydramine HCl [Benadryl] 25 mg capsule 25 mg PO BEDTIME PRN (Reason: itching) Qty: 10 0RF escitalopram oxalate 5 mg tablet 5 mg PO DAILY 90 Days Qty: 90 1RF omeprazole 40 mg capsule,delayed release(DR/EC) 40 mg PO DAILY Qty: 30 6RF ibuprofen 800 mg tablet 800 mg PO Q8H PRN (Reason: pain) 90 Days Qty: 270 1RF cyclobenzaprine 10 mg tablet 10 mg PO BID 5 Days Qty: 10 0RF albuterol sulfate [Ventolin HFA] 90 mcg/actuation HFA aerosol inhaler 2 puff inhalation Q6H PRN (Reason: shortness of breath or wheezing) 30 Days Qty: 18 2RF Referrals: Roxanne Abdalla MD [Primary Care Provider] - Interventions: ED Discharge Assessment Last Done: 11/18/23 17:21 Discharge Date/Time: 11/18/23 17:21 Print Language: Peruvian
[2023-11-18 15:39] LABS: IDNOW Serial# 58CA691E; Strep A Nucleic Acid Negative (Negative)
[2023-11-18 16:42] LABS: Influenza A PCR NEGATIVE (Negative); Influenza B PCR NEGATIVE (Negative); Resp Syncy Virus RNA Qual PCR NEGATIVE (Negative); SARS COV2 PCR INHOUSE NEGATIVE (Negative)
[2023-11-18 17:21] VITALS: BP 127/100; PULSE 70; RESP 19; TEMP 36.6; O2SAT 98
== END 2023-11-18 17:21 | disposition home or self-care (01) ==
PROVIDERS: Nurse Practitioner Family; Emergency Provider Student in an Organized Health Care Education/Training Program; PCP Internal Medicine
DX: J32.9 Chronic sinusitis, unspecified (principal); J02.9 Acute pharyngitis, unspecified; Z03.818 Encounter for observation for suspected exposure to other biological agents ruled out; J45.909 Unspecified asthma, uncomplicated; F17.210 Nicotine dependence, cigarettes, uncomplicated
CPT/HCPCS: 0241U; 87651; 99282; 99283

== ENCOUNTER 2023-11-23 13:34 | Outpatient (AMB) | payer OTHER, SELFPAY ==
[2023-11-23 13:54] VITALS: BP 100/70; BMI 34.2
--- NOTE | 2023-11-23 13:54 | A.OFFPC_ITS ---
Vital Signs 11/23/23 13:54 Height 5 ft Weight 175 lb BMI 34.2 BP 100/70 Blood Pressure Location Lt brachial Position Sitting Intake Visit Reasons: [facility] 11/17 Throat Closing Allergic Reaction Intake Note: Patient here for [facility] ED follow up 11/17 Sinusitis, referral request to ENT and Avionics Systems Technician, labs Computer Technologist Required: No Accompanied by: Self / Same As Patient Allergies No Known Allergies [No Known Allergies*] Allergy (Verified 11/23/23 14:14) Medication List - Last Reconciled 11/23/23 by Roxanne Alejandro MD acetaminophen ER (Tylenol 8 Hour) 650 mg PO Q8H PRN albuterol sulfate 1.25 mg (3 mL) inhalation QID PRN 30 days cholecalciferol (vitamin D3) 50 mcg PO DAILY 90 days clonazepam 0.25 mg (1/2 x 0.5 mg) PO BEDTIME 30 days cyclobenzaprine 10 mg PO BID 5 days diphenhydramine HCl (Benadryl) 25 mg PO BEDTIME PRN doxycycline hyclate 100 mg PO BID 7 days escitalopram oxalate 5 mg PO DAILY 90 days ibuprofen 800 mg PO Q8H PRN 90 days nebulizers (AeroEclipse II Nebulizer) As directed omeprazole 40 mg PO DAILY Ventolin HFA 90 mcg/actuation (albuterol sulfate) 2 puffs inhalation Q6H PRN 30 days NS Tobacco use date assessed: 11/16/22 Dental Screening Dental Screen Date: 03/11/23 HPI HPI Comments History of Present Illness Details This is a 38-year-old female with GERD, mild persistent asthma and mild major depression that complains of having allergic reaction when exposed to dogs. Allergy test will be ordered. She also went to ER due to a upper respiratory infection and is currently on antibiotics. She has been using rescue inhaler more often. GERD stable with PPIs. Depression stable with medications. [facility] Medical History (Updated 11/23/23 @ 21:22 by Roxanne Alejandro MD) Hypovitaminosis D Immunization due Hair loss Mild persistent asthma GERD (gastroesophageal reflux disease) Mild asthma Ankle pain Smoker Obese Chronic fatigue Insomnia Muscle spasm Depression with anxiety Surgical History History of section Family History Father Lung cancer Liver cancer Mother Diabetes Brother Aortic heart murmur Maternal Aunt Uterine cancer Breast cancer Social History Housing: Apartment Alcohol intake: never Patient Tobacco Use Status: Current everyday Tobacco user Tobacco use type: Cigarette Cigarettes Per Day: 4 Years Smoked: 20 e-Cigarette/Vaping Use: Never Used Second Hand Smoke Exposure: Yes Substance Use Type: Marijuana service: No Current occupational status: employed 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 1. Little interest or pleasure in doing things: not at all 2. Feeling down, depressed, or hopeless: several days 3. Trouble falling or staying asleep, or sleeping too much: more than half the days 4. Feeling tired or having little energy: several days 5. Poor appetite or overeating: several days 6. Feeling bad about yourself - or that you are a failure or have let yourself or your family down: not at all 7. Trouble concentrating on things, such as reading the newspaper or watching television: not at all 8. Moving or speaking so slowly that other people could have noticed. Or the opposite - being so fidgety or restless that you have been moving around a lot more than usual: not at all 9. Thoughts that you would be better off or of hurting yourself in some way: not at all Total score: 5 Source: Developed by Drs. Venkatesh Nuñez, Dana King, Srinivasan Win and colleagues, with an educational raissa from [employer]. Thrive Questionnaire Date Thrive assessed: 11/23/23 I am a: Patient What is your living situation today?: I have a steady place to live Within the past 12 months, did the food you bought not last and you didn't have the money to get more?: Never true Within the past 12 months, did you worry whether your food would run out before you got money to buy more?: Never true Do you have trouble paying for medicines?: No Do you have trouble getting transportation to medical appointments?: No Do you have trouble paying your heating and electricity bill?: No Do you have trouble taking care of your child, family member or friend?: No Do you have trouble with day-to-day activities such as bathing, preparing meals, shopping, managing finances, etc.?: No Are you currently unemployed and looking for a job?: No Are you interested in more education?: No Please select the resources that you would like help with: None Currently or been in a relationship where the following occur: No concerns reported THRIVE Score: 0 AUDIT C Alcohol Use Questionnaire (AUDIT-C) 1. How often do you have a drink containing alcohol?: Monthly or less 2. How many drinks containing alcohol do you have on a typical day when you are drinking?: 1 or 2 3. How often do you have six or more drinks on one occasion?: Never Total Score: 1 IVONNE-7 AMB Questionnaire IVONNE-7 Date IVONNE - 7 assessed: 11/23/23 Feeling nervous, anxious, or on edge: 2 = More than half the days Not being able to stop or control worryin = Not at all Worrying too much about different things: 1 = Several days Trouble relaxin = Not at all Being so restless that it is hard to sit still: 0 = Not at all Becoming easily annoyed or irritable: 1 = Several days Feeling afraid as if something awful might happen: 0 = Not at all Total IVONNE-7 score (0-4 normal; 5-9 mild; 10-14 moderate; 15-21 severe): 4 Source: Developed by Drs. Venkatesh Nuñez, Dana King, Srinivasan Win and colleagues, with an educational raissa from [employer]. Review of Systems Const All systems reviewed & are unremarkable except as noted in HPI and below Card Denies chest pain at rest, Denies chest pain with activity, Denies edema, Denies irregular heart rhythm, Denies claudication, Denies dyspnea, Denies dyspnea on exertion, Denies orthopnea, Denies paroxysmal nocturnal dyspnea and Denies slow heart rate Resp Denies cough, Denies dyspnea and Denies dyspnea on exertion Physical exam (Primary Care) Vital Signs: Last Vital Signs BP 100/70 11/23/23 13:54 BMI result Body Mass Index 34.2 Tobacco/Smoking Status: Tobacco use Status Tobacco use date assessed 11/16/22 11/23/23 14:01 Patient Tobacco Use Status Current everyday Tobacco 11/23/23 14:01 Tobacco use type Cigarette 11/23/23 14:01 e-Cigarette/Vaping Use Never Used 11/23/23 14:01 PHQ-9: PHQ-9 Score PHQ-9: Total score 5 11/23/23 14:19 Thrive Assessment: Date of Thrive Assessment Date Thrive assessed 11/23/23 11/23/23 14:01 Currently or been in a relationship where the following occur: No concerns reported Resp Effort & Inspection: normal respiratory effort Auscultation: clear to auscultation bilaterally Cardio Jugular venous distension: no JVD Rate: regular rate Rhythm: regular rhythm Heart sounds: S1 normal heart sound present and S2 normal heart sound present Extrem General: Yes full ROM Assessment and Plan Assessment & Plan (1) Allergic reaction: Code(s): T78.40XA - Allergy, unspecified, initial encounter Qualifiers: Encounter type: initial encounter Qualified Code(s): T78.40XA - Allergy, unspecified, initial encounter Plan: RAST test ordered. (2) Mild major depression: Code(s): F32.0 - Major depressive disorder, single episode, mild Plan: Continue escitalopram. (3) Mild persistent asthma: Code(s): J45.30 - Mild persistent asthma, uncomplicated Qualifiers: Asthma complication type: uncomplicated Qualified Code(s): J45.30 - Mild persistent asthma, uncomplicated Plan: Use rescue inhaler as needed. (4) GERD (gastroesophageal reflux disease): Code(s): K21.9 - Gastro-esophageal reflux disease without esophagitis Qualifiers: Esophagitis presence: esophagitis presence not specified Qualified Code(s): K21.9 - Gastro-esophageal reflux disease without esophagitis Plan: Continue PPIs. Orders: Orders Rast Allergen Today T78.40XA - Allergy, unspecified, initial encounter Medications: Refilled cyclobenzaprine 10 mg PO BID 10 tabs 0RF 5 days M62.838 - Other muscle spasm ibuprofen 800 mg PO Q8H PRN 270 tabs 1RF pain 90 days clonazepam administer 30 minutes before bedtime 0.25 mg (1/2 x 0.5 mg) PO BEDTIME 30 tabs 0RF 30 days omeprazole 40 mg PO DAILY 30 caps 6RF albuterol sulfate 1.25 mg (3 mL) inhalation QID PRN 75 mL 1RF shortness of breath or wheezing 30 days cholecalciferol (vitamin D3) 50 mcg PO DAILY 90 caps 3RF 90 days E55.9 - Vitamin D deficiency, unspecified diphenhydramine HCl (Benadryl) 25 mg PO BEDTIME PRN 10 caps 0RF itching L23.9 - Allergic contact dermatitis, unspecified cause escitalopram oxalate 5 mg PO DAILY 90 tabs 1RF 90 days Coding Level of Care Code Est Pt Level 4 (00053) Complex EM visit Add On G2211 Diagnoses Allergic reaction, initial encounter T78.40XA Encounter type: initial encounter Mild major depression F32.0 Mild persistent asthma without complication J45.30 Asthma complication type: uncomplicated Gastroesophageal reflux disease, unspecified whether esophagitis present K21.9 Esophagitis presence: esophagitis presence not specified Time Spent (min) 20
== END 2023-11-23 14:28 | disposition home or self-care (01) ==
PROVIDERS: PCP Internal Medicine; Visit Provider Internal Medicine
DX: J45.30 Mild persistent asthma, uncomplicated (principal); T78.40XA Allergy, unspecified, initial encounter; F32.0 Major depressive disorder, single episode, mild; K21.9 Gastro-esophageal reflux disease without esophagitis
CPT/HCPCS: 99214; G2211

== ENCOUNTER 2023-11-23 14:32 | Outpatient (REF) | payer OTHER, SELFPAY | END 2023-11-23 14:33 | disposition home or self-care (01) | LOC: HO.LAB 14:32 | PROVIDERS: PCP Internal Medicine; Visit Provider Internal Medicine | DX: T78.40XA Allergy, unspecified, initial encounter (principal); X58.XXXA Exposure to other specified factors, initial encounter; Y93.9 Activity, unspecified; Y92.9 Unspecified place or not applicable; Y99.9 Unspecified external cause status | CPT/HCPCS: 36415; 86003 ==

== ENCOUNTER 2024-01-19 14:47 | Outpatient (AMB) | payer OTHER, SELFPAY ==
[2024-01-19 14:55] VITALS: BP 108/68; BMI 34.2
--- NOTE | 2024-01-19 14:55 | A.OFFPC_ITS ---
Vital Signs 01/19/24 14:55 Height 5 ft Weight 175 lb BMI 34.2 BP 108/68 Blood Pressure Location Lt brachial Position Sitting Intake Visit Reasons: GERD, asma f/u Intake Note: Patient here for a follow up GERD, Asthma Measurement Technician Required: No Accompanied by: Child Allergies No Known Allergies [No Known Allergies*] Allergy (Verified 01/19/24 15:17) Medication List - Last Reconciled 01/19/24 by Roxanne Alejandro MD acetaminophen ER (Tylenol 8 Hour) 650 mg PO Q8H PRN albuterol sulfate 1.25 mg (3 mL) inhalation QID PRN 30 days cholecalciferol (vitamin D3) 50 mcg PO DAILY 90 days clonazepam 0.25 mg (1/2 x 0.5 mg) PO BEDTIME 30 days cyclobenzaprine 10 mg PO BID 5 days diphenhydramine HCl (Benadryl) 25 mg PO BEDTIME PRN doxycycline hyclate 100 mg PO BID 7 days escitalopram oxalate 5 mg PO DAILY 90 days ibuprofen 800 mg PO Q8H PRN 90 days nebulizers (AeroEclipse II Nebulizer) As directed omeprazole 40 mg PO DAILY Ventolin HFA 90 mcg/actuation (albuterol sulfate) 2 puffs inhalation Q6H PRN 30 days NS Tobacco use date assessed: 01/19/24 Dental Screening Dental Screen Date: 01/19/24 Did you have a dental visit in the last 12 months?: No Did you have a dental problem in the last 6 months where you did not have access to dental care?: No Was dental information given to patient?: Patient has dentist HPI HPI Comments History of Present Illness Details This is a 38-year-old female with mild persistent asthma, GERD, allergic rhinitis and mild major depression that comes today for follow-up on her conditions. 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 I recommend to avoid dogs and cats. GERD stable with PPIs. On escitalopram for her depression and has run out. She is a smoker and wants to try nicotine gum for cravings. She is obese with a BMI of 34.2 and was advised to do diet and exercise to reach BMI goal less than 30. [facility] Medical History (Updated 01/19/24 @ 16:38 by Roxanne Alejandro MD) Hypovitaminosis D Immunization due Hair loss Mild persistent asthma GERD (gastroesophageal reflux disease) Mild asthma Ankle pain Smoker Obese Chronic fatigue Insomnia Muscle spasm Depression with anxiety Surgical History History of section Family History Father Lung cancer Liver cancer Mother Diabetes Brother Aortic heart murmur Maternal Aunt Uterine cancer Breast cancer Social History Housing: Apartment Alcohol intake: never Patient Tobacco Use Status: Current everyday Tobacco user Tobacco use type: Cigarette Cigarettes Per Day: 4 Years Smoked: 20 Packs per year/per ci.00 e-Cigarette/Vaping Use: Never Used Second Hand Smoke Exposure: Yes Substance Use Type: Marijuana service: No Current occupational status: employed 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 1. Little interest or pleasure in doing things: not at all 2. Feeling down, depressed, or hopeless: several days 3. Trouble falling or staying asleep, or sleeping too much: more than half the days 4. Feeling tired or having little energy: several days 5. Poor appetite or overeating: several days 6. Feeling bad about yourself - or that you are a failure or have let yourself or your family down: not at all 7. Trouble concentrating on things, such as reading the newspaper or watching television: not at all 8. Moving or speaking so slowly that other people could have noticed. Or the opposite - being so fidgety or restless that you have been moving around a lot more than usual: not at all 9. Thoughts that you would be better off or of hurting yourself in some way: not at all Total score: 5 Depression Screening Interpretation: Positive Depression Screening Follow-up: Existing condition and Follow-up Visit Requested Depression Screening Done: Yes 13704 - PHQ-9 Billing: Yes Source: Developed by Drs. Venkatesh Nuñez, Dana King, Srinivasan Win and colleagues, with an educational raissa from [employer]. Thrive Questionnaire Date Thrive assessed: 01/19/24 I am a: Patient What is your living situation today?: I have a steady place to live Within the past 12 months, did the food you bought not last and you didn't have the money to get more?: Never true Within the past 12 months, did you worry whether your food would run out before you got money to buy more?: Never true Do you have trouble paying for medicines?: No Do you have trouble getting transportation to medical appointments?: No Do you have trouble paying your heating and electricity bill?: No Do you have trouble taking care of your child, family member or friend?: No Do you have trouble with day-to-day activities such as bathing, preparing meals, shopping, managing finances, etc.?: No Are you currently unemployed and looking for a job?: No Are you interested in more education?: No Please select the resources that you would like help with: None Currently or been in a relationship where the following occur: No concerns reported THRIVE Score: 0 AUDIT C Alcohol Use Questionnaire (AUDIT-C) 1. How often do you have a drink containing alcohol?: Monthly or less 2. How many drinks containing alcohol do you have on a typical day when you are drinking?: 1 or 2 3. How often do you have six or more drinks on one occasion?: Never Total Score: 1 Score Reviewed/Action Taken: No IVONNE-7 AMB Questionnaire IVONNE-7 Date IVONNE - 7 assessed: 01/19/24 Feeling nervous, anxious, or on edge: 2 = More than half the days Not being able to stop or control worryin = Not at all Worrying too much about different things: 1 = Several days Trouble relaxin = Not at all Being so restless that it is hard to sit still: 0 = Not at all Becoming easily annoyed or irritable: 1 = Several days Feeling afraid as if something awful might happen: 0 = Not at all Total IVONNE-7 score (0-4 normal; 5-9 mild; 10-14 moderate; 15-21 severe): 4 Source: Developed by Drs. Venkatesh Nuñez, DanaSrinivasan Sam and colleagues, with an educational raissa from [employer]. IVONNE-7 Assessment Billing IVONNE-7 Assessment Tool: IVONNE-7 Assessment 56847 Review of Systems Const All systems reviewed & are unremarkable except as noted in HPI and below Card Denies chest pain at rest, Denies chest pain with activity, Denies edema, Denies irregular heart rhythm, Denies claudication, Denies dyspnea, Denies dyspnea on exertion, Denies orthopnea, Denies paroxysmal nocturnal dyspnea and Denies slow heart rate Resp Denies cough, Denies dyspnea and Denies dyspnea on exertion GI Denies abdominal pain, Denies change in bowel habits, Denies excessive flatus, Denies nausea and Denies vomiting Denies urinary incontinence, Denies urinary hesitancy and Denies urinary urgency Musc Denies atrophy, Denies deformity and Denies limited range of motion Skin/Breast Denies bleeding lesions, Denies changing lesions and Denies rash Physical exam (Primary Care) Vital Signs: Last Vital Signs BP 108/68 01/19/24 14:55 BMI result Body Mass Index 34.2 BMI Assessment/Plan discussion: High BMI High, discussed plan: lifestyle, weight reduction, dietary and physical activity Tobacco/Smoking Status: Tobacco use Status Tobacco use date assessed 01/19/24 01/19/24 15:02 Patient Tobacco Use Status Current everyday Tobacco 01/19/24 15:02 Tobacco use type Cigarette 01/19/24 15:02 e-Cigarette/Vaping Use Never Used 01/19/24 15:02 Are you ready to quit: Yes Tobacco cessation counseling provided: Yes Items discussed: Nicotine replacement and QuitWorks Relapse Prevention: discussed the importance of a supportive environment, discussed extending NRT, discussed negative mood or depression after quitting, weight gain after smoking is common and discussed dietary, exercise and/or lifestyle changes Number of minutes spent counselin PHQ-9: PHQ-9 Score PHQ-9: Total score 5 01/19/24 15:21 Depression Screening Interpretation: Positive Depression Screening Follow-up: Existing condition and Follow-up Visit Requested Thrive Assessment: Date of Thrive Assessment Date Thrive assessed 01/19/24 01/19/24 15:02 Currently or been in a relationship where the following occur: No concerns reported Resp Effort & Inspection: normal respiratory effort Auscultation: clear to auscultation bilaterally Cardio Jugular venous distension: no JVD Rate: regular rate Rhythm: regular rhythm Heart sounds: S1 normal heart sound present and S2 normal heart sound present Extrem General: Yes full ROM Assessment and Plan Assessment & Plan (1) Mild major depression: Code(s): F32.0 - Major depressive disorder, single episode, mild Plan: Continue escitalopram. (2) GERD (gastroesophageal reflux disease): Code(s): K21.9 - Gastro-esophageal reflux disease without esophagitis Qualifiers: Esophagitis presence: esophagitis presence not specified Qualified Code(s): K21.9 - Gastro-esophageal reflux disease without esophagitis Plan: Continue PPIs. (3) Allergic rhinitis: Code(s): J30.9 - Allergic rhinitis, unspecified Plan: Avoid allergens. Continue antihistamines. (4) Mild persistent asthma: Code(s): J45.30 - Mild persistent asthma, uncomplicated Qualifiers: Asthma complication type: uncomplicated Qualified Code(s): J45.30 - Mild persistent asthma, uncomplicated Plan: Avoid allergens. Use rescue inhaler as needed. Medications: New nicotine (polacrilex) 4 mg buccal Q2H PRN 100 ea 0RF nicotine cravings 25 days Refilled Ventolin HFA 90 mcg/actuation (albuterol sulfate) 2 puffs inhalation Q6H PRN 18 grams 2RF shortness of breath or wheezing 30 days NS omeprazole 40 mg PO DAILY 30 caps 6RF ibuprofen 800 mg PO Q8H PRN 270 tabs 1RF pain 90 days cholecalciferol (vitamin D3) 50 mcg PO DAILY 90 caps 3RF 90 days E55.9 - Vitamin D deficiency, unspecified escitalopram oxalate 5 mg PO DAILY 90 tabs 1RF 90 days acetaminophen ER (Tylenol 8 Hour) 650 mg PO Q8H PRN 30 tabs 0RF fever or pain cyclobenzaprine 10 mg PO BID 10 tabs 0RF 5 days M62.838 - Other muscle spasm Discontinued doxycycline hyclate Discontinued Reason: Patient Completed Course 100 mg PO BID 7 days 14 tabs 0RF Coding Level of Care Code Est Pt Level 4 (15623) Complex EM visit Add On G2211 Diagnoses Mild major depression F32.0 Gastroesophageal reflux disease, unspecified whether esophagitis present K21.9 Esophagitis presence: esophagitis presence not specified Allergic rhinitis J30.9 Mild persistent asthma without complication J45.30 Asthma complication type: uncomplicated Additional Codes IVONNE-7 Assessment Billing - IVONNE-7 Assessment Tool: IVONNE-7 Assessment 42432 ([id number]) Time Spent (min) 22
== END 2024-01-19 15:25 | disposition home or self-care (01) ==
PROVIDERS: PCP Internal Medicine; Visit Provider Internal Medicine
DX: F32.0 Major depressive disorder, single episode, mild (principal); K21.9 Gastro-esophageal reflux disease without esophagitis; J30.9 Allergic rhinitis, unspecified; J45.30 Mild persistent asthma, uncomplicated

== ENCOUNTER → 2024-01-19 14:47 | Outpatient (BNVA) | payer OTHER, SELFPAY | PROVIDERS: PCP Internal Medicine; Visit Provider Internal Medicine | DX: F32.0 Major depressive disorder, single episode, mild (principal); K21.9 Gastro-esophageal reflux disease without esophagitis; J30.9 Allergic rhinitis, unspecified; J45.30 Mild persistent asthma, uncomplicated | CPT/HCPCS: 96127; 99212 ==

== ENCOUNTER 2024-03-01 08:53 | Outpatient (REF) | payer OTHER, SELFPAY | END 2024-03-01 08:54 | disposition home or self-care (01) | LOC: HO.LNP 08:53 | PROVIDERS: PCP Internal Medicine; Visit Provider Obstetrics & Gynecology | DX: N93.0 Postcoital and contact bleeding (principal) | CPT/HCPCS: 58100; 88305 ==

== ENCOUNTER 2024-03-01 08:53 | Outpatient (AMB) | payer OTHER, SELFPAY ==
--- NOTE | 2024-03-01 08:59 | MHC.OFFVIS ---
Intake Visit Reasons: ultrasound results Allergies No Known Allergies [No Known Allergies*] Allergy (Verified 03/01/24 09:01) HPI Comments Details: Presenting for EMB/ECC [facility] Medical History Hypovitaminosis D Immunization due Hair loss Mild persistent asthma GERD (gastroesophageal reflux disease) Mild asthma Ankle pain Smoker Obese Chronic fatigue Insomnia Muscle spasm Depression with anxiety Surgical History History of section Family History Father Lung cancer Liver cancer Mother Diabetes Brother Aortic heart murmur Maternal Aunt Uterine cancer Breast cancer Social History Housing: Apartment Alcohol intake: never Patient Tobacco Use Status: Current everyday Tobacco user Tobacco use type: Cigarette Cigarettes Per Day: 4 Years Smoked: 20 e-Cigarette/Vaping Use: Never Used Second Hand Smoke Exposure: Yes Substance Use Type: Marijuana service: No Current occupational status: employed 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 hysteroscopy D&C) & the risks were discussed with the patient including but not limited: pain, uterine perforation, bleeding, infection, possible injury to bladder, bowel, ureter, possible need for blood transfusion with all its possible risks. The patient verbalized understanding all questions answered and signed consent. Urine test done in the office was negative The patient was placed into the dorsal lithotomy position; a speculum was inserted in the vagina. Using aseptic technique for the procedure, the cervix was cleansed with Betadine. The anterior lip of the cervix was grasped with a single tooth tenaculum. The uterus was sounded to 7 cm with a 4 mm Pipelle was used. Endocervical curettage followed using ECC curette. Tissues samples were obtained and placed in formalin, in a patient labeled container and sent to the pathology department. At the end of the procedure, there was minimal bleeding noted The patient tolerated the procedure well and was discharged in good condition with the following instructions: Nothing in the vagina until the bleeding stops. No sex until the bleeding stops, to call if any of the following occurs: fever (>100.4), flu-like symptoms, abdominal pain, heavy bleeding, four smelling vaginal discharge. The patient was instructed to schedule a Follow up appointment in 2 weeks to discuss pathology results of the biopsy and treatment options. This note was generated with a voice recognition program. Some errors may have been overlooked during the review of this note. Sometimes these errors may affect the content or meaning of a given sentence. [id number] Biopsy Quality Reporting (2019) Adult ([facility] ) Smoking risk assessment performed?: Yes Patient Tobacco Use Status: Current everyday Tobacco user Assessment & Plan Assessment & Plan (1) Postcoital bleeding: Code(s): N93.0 - Postcoital and contact bleeding Category: Medical Plan: EMB and ECC done, see procedure note Orders: Orders AMB Endometrial Biopsy Today N93.0 - Postcoital and contact bleeding Coding Level of Care Code Procedure Only Diagnoses Postcoital bleeding N93.0 CPT Codes Endometrial Biopsy - CPT: 74214-[id number] Biopsy ([id number])
--- NOTE | 2024-03-01 09:00 | MHC.OFFVIS ---
Intake Visit Reasons: ultrasound results Pipelines Manager Required: Yes Information Interpreted: clinical only Allergies No Known Allergies [No Known Allergies*] Allergy (Verified 03/01/24 09:01) Is last menstrual period known: Yes (feb 13, 2024) Last menstrual period: 02/13/24 Post menopausal: No Patient : No PFSH Medical History Hypovitaminosis D Immunization due Hair loss Mild persistent asthma GERD (gastroesophageal reflux disease) Mild asthma Ankle pain Smoker Obese Chronic fatigue Insomnia Muscle spasm Depression with anxiety Surgical History History of section Family History Father Lung cancer Liver cancer Mother Diabetes Brother Aortic heart murmur Maternal Aunt Uterine cancer Breast cancer Social History Housing: Apartment Alcohol intake: never Patient Tobacco Use Status: Current everyday Tobacco user Tobacco use type: Cigarette Cigarettes Per Day: 4 Years Smoked: 20 e-Cigarette/Vaping Use: Never Used Second Hand Smoke Exposure: Yes Substance Use Type: Marijuana service: No Current occupational status: employed 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
== END 2024-03-01 09:33 | disposition home or self-care (01) ==
LOC: HO.HWS 08:53
PROVIDERS: PCP Internal Medicine; Visit Provider Obstetrics & Gynecology
DX: N93.0 Postcoital and contact bleeding (principal)
CPT/HCPCS: 58100

== ENCOUNTER 2024-04-19 14:47 | Outpatient (AMB) | payer OTHER, SELFPAY ==
--- NOTE | 2024-04-19 15:16 | MHC.PC.OV ---
Vital Signs 04/19/24 15:23 Height 5 ft Weight 173 lb BMI 33.8 BP 132/90 H Blood Pressure Location Lt brachial Position Sitting Intake Visit Reasons: Annual Exam Intake Note: Patient here for an annual physical exam Residential Program Coordinator Required: No Accompanied by: Self / Same As Patient Allergies No Known Allergies [No Known Allergies*] Allergy (Verified 04/19/24 15:25) Medication List - Last Reconciled 04/19/24 by Roxanne Alejandro MD acetaminophen ER (Tylenol 8 Hour) 650 mg PO Q8H PRN albuterol sulfate 1.25 mg (3 mL) inhalation QID PRN 30 days cholecalciferol (vitamin D3) 50 mcg PO DAILY 90 days clonazepam 0.25 mg (1/2 x 0.5 mg) PO BEDTIME 30 days cyclobenzaprine 10 mg PO BID 5 days diphenhydramine HCl (Benadryl) 25 mg PO BEDTIME PRN escitalopram oxalate 5 mg PO DAILY 90 days ibuprofen 800 mg PO Q8H PRN 90 days nebulizers (AeroEclipse II Nebulizer) As directed nicotine (polacrilex) 4 mg buccal Q2H PRN 25 days omeprazole 40 mg PO DAILY Ventolin HFA 90 mcg/actuation (albuterol sulfate) 2 puffs inhalation Q6H PRN 30 days NS Tobacco use date assessed: 01/19/24 Dental Screening Dental Screen Date: 01/19/24 HPI HPI Comments History of Present Illness Details The patient is a 39-year-old female presenting for a routine physical examination. She reports depressive symptoms, stating it has been a particularly difficult year, leading to feelings of being overwhelmed and depressive episodes. The patient has a history of alcohol use, consuming alcohol every week, and she classifies herself as an alcoholic. Additionally, she smokes approximately four cigarettes daily but is not currently ready to quit. The patient mentions experiencing muscular spasms approximately five times and acknowledges using Flexeril as needed. She describes pain and strain in her right knee and discomfort in specific areas, possibly due to muscle spasms or other factors. The patient also complains of seborrheic dermatitis on her scalp, which causes discomfort and baldness. There is a history of eczema on the head, previously treated with a special shampoo. Furthermore, the patient experiences impaired vision, particularly at night, and desires further evaluation. - Pap smear negative for HPV; follow-up recommended in five years. - Current medications include Tylenol, albuterol pump, vitamin D, clonazepam, Flexeril, citalopram 5 mg at night, and ibuprofen. - Discussion on the adverse effects of smoking and benefits of smoking cessation. - Encouraged to reduce alcohol intake. - Plan for an ophthalmological evaluation. [facility] Medical History (Updated 04/19/24 @ 15:51 by Roxanne Alejandro MD) Hypovitaminosis D Immunization due Hair loss Mild persistent asthma GERD (gastroesophageal reflux disease) Mild asthma Ankle pain Smoker Obese Chronic fatigue Insomnia Muscle spasm Depression with anxiety Surgical History History of section Family History Father Lung cancer Liver cancer Mother Diabetes Brother Aortic heart murmur Maternal Aunt Uterine cancer Breast cancer Social History (Updated 04/19/24 @ 15:41 by Roxanne Alejandro MD) Housing: Apartment Alcohol intake: current Alcohol intake frequency: a few times a week Alcohol type: beer and wine Patient Tobacco Use Status: Current everyday Tobacco user Tobacco use type: Cigarette Cigarettes Per Day: 4 Years Smoked: 20 e-Cigarette/Vaping Use: Never Used Second Hand Smoke Exposure: Yes Substance Use Type: Marijuana service: No Current occupational status: employed 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 1. Little interest or pleasure in doing things: several days 2. Feeling down, depressed, or hopeless: several days 3. Trouble falling or staying asleep, or sleeping too much: more than half the days 4. Feeling tired or having little energy: more than half the days 5. Poor appetite or overeating: more than half the days 6. Feeling bad about yourself - or that you are a failure or have let yourself or your family down: several days 7. Trouble concentrating on things, such as reading the newspaper or watching television: several days 8. Moving or speaking so slowly that other people could have noticed. Or the opposite - being so fidgety or restless that you have been moving around a lot more than usual: several days 9. Thoughts that you would be better off or of hurting yourself in some way: not at all Total score: 11 Depression Screening Interpretation: Positive Depression Screening Follow-up: Existing condition, In treatment and Follow-up Visit Requested Depression Screening Done: Yes 14829 - PHQ-9 Billing: Yes Source: Developed by Drs. Venkatesh Nuñez, Dana King, Srinivasan Win and colleagues, with an educational raissa from [employer]. Thrive Questionnaire Date Thrive assessed: 01/19/24 I am a: Patient What is your living situation today?: I choose not to answer this question Within the past 12 months, did the food you bought not last and you didn't have the money to get more?: I choose not to answer this question Within the past 12 months, did you worry whether your food would run out before you got money to buy more?: I choose not to answer this question Do you have trouble paying for medicines?: I choose not to answer this question Do you have trouble getting transportation to medical appointments?: I choose not to answer this question Do you have trouble paying your heating and electricity bill?: I choose not to answer this question Do you have trouble taking care of your child, family member or friend?: I choose not to answer this question Do you have trouble with day-to-day activities such as bathing, preparing meals, shopping, managing finances, etc.?: No Are you interested in more education?: Yes Please select the resources that you would like help with: Housing/Penitentiary Currently or been in a relationship where the following occur: No concerns reported THRIVE Score: 0 AUDIT C Alcohol Use Questionnaire (AUDIT-C) 1. How often do you have a drink containing alcohol?: 2-3 times a week 2. How many drinks containing alcohol do you have on a typical day when you are drinking?: 5 or 6 3. How often do you have six or more drinks on one occasion?: Weekly Total Score: 8 IVONNE-7 AMB Questionnaire IVONNE-7 Date IVONNE - 7 assessed: 01/19/24 Feeling nervous, anxious, or on edge: 2 = More than half the days Not being able to stop or control worryin = Several days Worrying too much about different things: 1 = Several days Trouble relaxin = Several days Being so restless that it is hard to sit still: 1 = Several days Becoming easily annoyed or irritable: 1 = Several days Feeling afraid as if something awful might happen: 1 = Several days Total IVONNE-7 score (0-4 normal; 5-9 mild; 10-14 moderate; 15-21 severe): 8 Source: Developed by Drs. Venkatesh Nuñez, Dana King, Srinivasan Win and colleagues, with an educational raissa from [employer]. IVONNE-7 Assessment Billing IVONNE-7 Assessment Tool: IVONNE-7 Assessment 76233 Review of Systems Const All systems reviewed & are unremarkable except as noted in HPI and below Card Denies chest pain at rest, Denies chest pain with activity, Denies edema, Denies irregular heart rhythm, Denies claudication, Denies dyspnea, Denies dyspnea on exertion, Denies orthopnea, Denies paroxysmal nocturnal dyspnea and Denies slow heart rate Resp Denies cough, Denies dyspnea and Denies dyspnea on exertion GI Denies abdominal pain, Denies change in bowel habits, Denies excessive flatus, Denies nausea and Denies vomiting Denies urinary incontinence, Denies urinary hesitancy and Denies urinary urgency Musc Denies abnormal gait, Denies atrophy, Denies deformity and Denies limited range of motion Skin/Breast Denies bleeding lesions, Denies changing lesions and Denies rash Neuro Denies abnormal gait, Denies behavioral changes, Denies confusion and Denies lack of coordination Psych Denies behavioral changes and Denies confusion Physical exam (Primary Care) Vital Signs: Last Vital Signs BP 132/90 H 04/19/24 15:23 BMI result Body Mass Index 33.8 BMI Assessment/Plan discussion: High BMI High, discussed plan: lifestyle, weight reduction, dietary and physical activity Tobacco/Smoking Status: Tobacco use Status Tobacco use date assessed 01/19/24 04/19/24 15:17 Patient Tobacco Use Status Current everyday Tobacco 04/19/24 15:41 Tobacco use type Cigarette 04/19/24 15:41 e-Cigarette/Vaping Use Never Used 04/19/24 15:41 Are you ready to quit: No Tobacco cessation counseling provided: Yes Items discussed: Nicotine replacement and QuitWorks Relapse Prevention: discussed the importance of a supportive environment, discussed negative mood or depression after quitting, weight gain after smoking is common and discussed dietary, exercise and/or lifestyle changes Number of minutes spent counselin CPT code: 30904 - 4-10 Minutes PHQ-9: PHQ-9 Score PHQ-9: Total score 11 04/19/24 15:42 Depression Screening Interpretation: Positive Depression Screening Follow-up: Existing condition, In treatment and Follow-up Visit Requested Thrive Assessment: Date of Thrive Assessment Date Thrive assessed 01/19/24 04/19/24 15:17 Currently or been in a relationship where the following occur: No concerns reported Const General: No confusion Orientation/consciousness: patient oriented x3 and No confusion HENMT Head: Yes normal to inspection, Yes normocephalic and Yes atraumatic Ears: external ears normal Eyes General: appearance normal, both eyes and all related structures Eyelids: Yes eyelids normal Conjunctivae: conjunctivae normal Neck Neck: Yes normal visual inspection and Yes supple Resp Effort & Inspection: normal respiratory effort Auscultation: clear to auscultation bilaterally Cardio Jugular venous distension: no JVD Rate: regular rate Rhythm: regular rhythm Heart sounds: S1 normal heart sound present and S2 normal heart sound present GI Inspection: Yes normal to inspection Palpation (GI): Soft to palpation and nontender Auscultation: normal bowel sounds Skin General skin exam: no rashes or lesions noted Neuro General: patient oriented x3, no focal motor deficits and No confusion Extrem General: Yes full ROM Psych Appearance: grossly normal Office Procedures Flu Questionnaire Does the patient have a severe egg allergy?: No Immunizations Fluarix Triv [id number] (PF) 45 mcg (15 mcg x 3)/0.5 mL IM syringe Performing Provider: Roxanne Alejandro MD [facility] [place] Documented (not given) by: HAI Hanson on 04/19/24 15:29 Reason Not Given: Patient Refused Coding Level of Care Code Est Pt Level 4 (60324) Est Pt Prev Care 18-39y(34785) Diagnoses Physical exam Z00.00 Blurry vision H53.8 Seborrheic dermatitis of scalp L21.9 Chronic idiopathic constipation K59.04 Allergic rhinitis J30.9 Mild major depression F32.0 Anxiety F41.9 Additional Codes IVONNE-7 Assessment Billing - IVONNE-7 Assessment Tool: IVONNE-7 Assessment 43049 ([id number]) PHQ-9 - 05858 - PHQ-9 Billing: Yes ([id number]) Vital Signs *Quality* - CPT code: 39712 - 4-10 Minutes ([id number]) Time Spent (min) 38 Assessment & Plan Assessment & Plan (1) Physical exam: Code(s): Z00.00 - Encounter for general adult medical examination without abnormal findings Category: Medical (2) Blurry vision: Code(s): H53.8 - Other visual disturbances Category: Medical (3) Seborrheic dermatitis of scalp: Code(s): L21.9 - Seborrheic dermatitis, unspecified Category: Medical (4) Chronic idiopathic constipation: Code(s): K59.04 - Chronic idiopathic constipation Category: Medical (5) Allergic rhinitis: Code(s): J30.9 - Allergic rhinitis, unspecified Category: Medical (6) Mild major depression: Code(s): F32.0 - Major depressive disorder, single episode, mild Category: Medical (7) Anxiety: Code(s): F41.9 - Anxiety disorder, unspecified Category: Medical Plan - Prescribe a referral for an ophthalmological examination to assess vision impairment. - Prescribe medicated shampoo for seborrheic dermatitis management. - Recommend laboratory tests to evaluate general health status given the reported symptoms. - Prescribe lactulose for constipation relief. - Educate the patient on smoking cessation aids like nicotine patches. - Furniture Rental Consultant on reducing alcohol intake and managing depressive symptoms. Patient was informed and verbally consented to the use of an ambient scribe for clinic note documentation during this visit. During the visit, I reassured the patient about the benign nature of her biopsy results, explaining that there is no presence of cancerous cells in the cervix or endometrium. We discussed her depressive symptoms in detail, and I advised on continuing her medication to manage these symptoms better. I highlighted the importance of reducing alcohol intake and offered support for her desire to manage alcohol use disorder. I discussed the plan to refer her to an cloth washer back tender for her vision issues and the necessity of continuing treatment for seborrheic dermatitis. We addressed her muscular symptoms and knee strain, ensuring she understands the significance of adherence to prescribed medications. Follow-up visits were advised to monitor progress. Orders: Orders Influenza [id number] Immunization 04/19/24 Z23 - Encounter for immunization Vitamin D 25-OH Total 04/19/24 E55.9 - Vitamin D deficiency, unspecified Comprehensive [place]. Panel Fast 04/19/24 Z00.00 - Encounter for general adult medical examination without abnormal findings Lipid Panel 04/19/24 Z00.00 - Encounter for general adult medical examination without abnormal findings Referrals Ophthalmology Referral H53.8 - Other visual disturbances Medications: New selenium sulfide 1% (Dandruff Shampoo (selenium sulfide)) massage into affected area; leave on for 10 mins ; rinse off thoroughly 1 appl topical BEDTIME 207 mL 1RF 7 days L21.9 - Seborrheic dermatitis, unspecified lactulose 10 grams (15 mL) PO BEDTIME PRN 237 mL 2RF constipation 30 days K59.04 - Chronic idiopathic constipation Changed From cyclobenzaprine 10 mg PO BID 5 days 10 tabs 0RF M62.838 - Other muscle spasm To cyclobenzaprine 10 mg PO BID 60 tabs 2RF 30 days M62.838 - Other muscle spasm Refilled escitalopram oxalate 5 mg PO DAILY 90 tabs 1RF 90 days ibuprofen 800 mg PO Q8H PRN 270 tabs 1RF pain 90 days omeprazole 40 mg PO DAILY 30 caps 6RF cholecalciferol (vitamin D3) 50 mcg PO DAILY 90 caps 3RF 90 days E55.9 - Vitamin D deficiency, unspecified Patient Instructions: - Continue current medications as prescribed, including escitalopram and Flexeril. - Use the prescribed medicated shampoo for scalp treatment. - Schedule an appointment with an radiological equipment specialist. - Use laxatives as needed for constipation. - Consider reducing alcohol consumption weekly. - Avoid smoking while using nicotine replacement therapy patches.
[2024-04-19 15:23] VITALS: BP 132/90; BMI 33.8
== END 2024-04-19 15:54 | disposition home or self-care (01) ==
PROVIDERS: PCP Internal Medicine; Visit Provider Internal Medicine
DX: Z23 Encounter for immunization (principal)

== ENCOUNTER → 2024-04-19 14:47 | Outpatient (BNVA) | payer SELFPAY | PROVIDERS: PCP Internal Medicine; Visit Provider Internal Medicine | DX: Z00.01 Encounter for general adult medical examination with abnormal findings (principal); H53.8 Other visual disturbances; L21.9 Seborrheic dermatitis, unspecified; K59.04 Chronic idiopathic constipation; J30.9 Allergic rhinitis, unspecified; F32.0 Major depressive disorder, single episode, mild; F41.9 Anxiety disorder, unspecified; Z28.21 Immunization not carried out because of patient refusal | CPT/HCPCS: 90471; 96127; 99212; 99395 ==

== ENCOUNTER 2024-05-11 09:07 | Outpatient (AMB) | payer OTHER, SELFPAY ==
--- NOTE | 2024-05-11 09:44 | A.OFFVIS_ITS ---
Intake Visit Reasons: TV EMB/ECC Follow up/DO NOT RS Senior Reactor Operator Required: Yes Senior Reactor Operator Language: Elastic Attacher Overlock Services: Senior Reactor Operator Present (in person) Senior Reactor Operator Name: Heena VALLES Allergies No Known Allergies [No Known Allergies*] Allergy (Verified 04/19/24 15:25) HPI Comments Details: The patient is scheduled tele health visit for follow-up regarding post coital b leeding. The patient was in history seen in 06/25. The following workup was done 06/25 GC/CT was negative Co testing done in 06/25 was negative 11/22 Pelvic ultrasound showed the following: Uterus: The uterus is anteverted and measures 10.0 x 5.0 x 6.0 cm. 2.6 x 1.3 x 1.9 cm subserosal fibroid in the body the uterus and 0.9 x 1.1 x 1.2 cm partially exophytic fibroid in the body of the uterus are seen. The endometrial thickness is 1.3 cm. Adnexa: Both ovaries are visualized. There is normal color flow to the adnexa. There is no ovarian torsion. There is no pelvic ascites or fluid collection. Right ovary measures 2.3 x 3.3 x 2.2 cm. Volume 8.7 mL. Left ovary measures 2.0 x 2.5 x 2.1 cm. Volume 4.8 mL. 03/25 EMB/ECC pathology showed the following: A. Endocervix, curettage: Benign endocervical glandular and squamous epithelium; negative for dysplasia. B. Endometrium, biopsy: Benign early secretory endometrium (day 16-17); no atypia or carcinoma. Comment: The patient's previous negative Pap test ([id number]) concurs with the current specimen. [facility] Medical History Hypovitaminosis D Immunization due Hair loss Mild persistent asthma GERD (gastroesophageal reflux disease) Mild asthma Ankle pain Smoker Obese Chronic fatigue Insomnia Muscle spasm Depression with anxiety Surgical History History of section Family History Father Lung cancer Liver cancer Mother Diabetes Brother Aortic heart murmur Maternal Aunt Uterine cancer Breast cancer Social History (Updated 12/19/24 @ 15:41 by Roxanne Alejandro MD) Housing: Apartment Alcohol intake: current Alcohol intake frequency: a few times a week Alcohol type: beer and wine Patient Tobacco Use Status: Current everyday Tobacco user Tobacco use type: Cigarette Cigarettes Per Day: 4 Years Smoked: 20 e-Cigarette/Vaping Use: Never Used Second Hand Smoke Exposure: Yes Substance Use Type: Marijuana service: No Current occupational status: employed 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 Current occupational exposures/hazards: No Sexual orientation: Straight/Heterosexual Cognitive needs: No Hearing needs: No Vision needs: No Female Reproductive History Menstrual Age of Menarche: 11 Review of Systems Const All systems reviewed & are unremarkable except as noted in HPI and below Reports as per HPI and Reports no additional complaints GI Reports no additional complaints Reports no additional complaints Quality Reporting (2020) Adult ([facility] ) Smoking risk assessment performed?: Yes Patient Tobacco Use Status: Current everyday Tobacco user Telehealth Telehealth Telehealth Platform: Telephone Location of provider rendering services: practice address Location of patient: address on file Patient Identification confirmed using: Name, : Yes Telehealth method: video Patient verbally consented to treatment: Yes Patient verbally consented to billing insurance company: Yes Patient informed of any privacy concerns related to visit: Yes Assessment & Plan Assessment & Plan (1) Postcoital bleeding: Code(s): N93.0 - Postcoital and contact bleeding Category: Medical Plan: Discussed with the patient the results of the workup done including GC/CT, co testing both negative, in addition to the EMB/ECC pathology . Instructions given to patient to call in case her symptoms recur. All questions answered, the patient verbalized understanding (2) Uterine myoma: Code(s): D25.9 - Leiomyoma of uterus, unspecified Category: Medical Plan: Discussed with the patient the findings on pelvic ultrasound & the risk of myosarcoma; discussed with the patient the options of treatment including expectant management versus hysterectomy; the pros and cons, risks benefits of each approach were discussed with the patient including the fact that in cases of myosarcoma, surgical treatment can lead to early diagnosis and positively affects the prognosis; after further discussion, the patient decided to proceed with expectant management. Will repeat pelvic ultrasound periodically. Instructions given to patient to call in case any of the following occurs: pressure symptoms, abnormal uterine bleeding, pelvic pain; and to schedule a six-months pelvic ultrasound (order placed) and a follow-up appointment . All questions answered, the patient verbalized understanding and agreed with the plan . I spent a total of 20 minutes reviewing the chart, talking to the patient via video and documenting in the medical record. Orders: Orders US pelvic and transvaginal 6 Months D25.9 - Leiomyoma of uterus, unspecified Coding Level of Care Code Tele Est Pt Level 3 (43903) Diagnoses Postcoital bleeding N93.0 Uterine myoma D25.9
== END 2024-05-11 11:03 | disposition home or self-care (01) ==
LOC: HO.HWS 09:07
PROVIDERS: PCP Internal Medicine; Visit Provider Obstetrics & Gynecology
DX: N93.0 Postcoital and contact bleeding (principal); D25.9 Leiomyoma of uterus, unspecified
CPT/HCPCS: 99213

== ENCOUNTER → 2024-05-11 09:07 | Outpatient (BNVA) | payer OTHER, SELFPAY | PROVIDERS: PCP Internal Medicine; Visit Provider Obstetrics & Gynecology ==

== ENCOUNTER 2024-05-16 12:53 | Outpatient (AMB) | payer OTHER, SELFPAY ==
--- NOTE | 2024-05-16 13:17 | A.OFFVIS_ITS ---
Vital Signs 05/16/24 13:29 Height 5 ft Weight 173 lb 8.061 oz BMI 33.9 BP 126/80 Blood Pressure Location Lt brachial Position Sitting Pulse 59 Pulse Source Pulse Oximeter Pulse Oximetry (%) 99 Oxygen Delivery Method Room Air Intake Visit Reasons: Joint Pain Intake Note: Patient presents for joint pain. Cafeteria Assistant Required: Yes Cafeteria Assistant Language: Solaris Administrator Services: Cafeteria Assistant Present Cafeteria Assistant Name: [id number] Information Interpreted: non-clinical & clinical Allergies No Known Allergies [No Known Allergies*] Allergy (Verified 05/16/24 13:27) Medication List - Last Reconciled 05/16/24 by Della Negrete MD acetaminophen ER (Tylenol 8 Hour) 650 mg PO Q8H PRN albuterol sulfate 1.25 mg (3 mL) inhalation QID PRN 30 days cholecalciferol (vitamin D3) 50 mcg PO DAILY 90 days clonazepam 0.25 mg (1/2 x 0.5 mg) PO BEDTIME 30 days cyclobenzaprine 10 mg PO BID 30 days diphenhydramine HCl (Benadryl) 25 mg PO BEDTIME PRN escitalopram oxalate 5 mg PO DAILY 90 days ibuprofen 800 mg PO Q8H PRN 90 days lactulose 10 grams (15 mL) PO BEDTIME PRN 30 days nebulizers (AeroEclipse II Nebulizer) As directed nicotine (polacrilex) 4 mg buccal Q2H PRN 25 days omeprazole 40 mg PO DAILY selenium sulfide 1% (Dandruff Shampoo (selenium sulfide)) 1 appl topical BEDTIME 7 days [thumb spica spl wear nightly and as much as possible throughout the day] Ventolin HFA 90 mcg/actuation (albuterol sulfate) 2 puffs inhalation Q6H PRN 30 days NS HPI Comments Details: This is a 39-year-old female who presents for evaluation of pain in her left hand. She states that 1-2 years ago she had a fracture of her left hand/wrist. She states that she was evaluated by a specialist. She does not recall any specific treatment. 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 She takes Tylenol and ibuprofen. She takes ibuprofen up to 3 times a day. It provides little relief. FOR[facility], LATER [facility] Medical History Hypovitaminosis D Immunization due Hair loss Mild persistent asthma GERD (gastroesophageal reflux disease) Mild asthma Ankle pain Smoker Obese Chronic fatigue Insomnia Muscle spasm Depression with anxiety Surgical History History of section Family History Father Lung cancer Liver cancer Mother Diabetes Brother Aortic heart murmur Maternal Aunt Uterine cancer Breast cancer Social History Housing: Apartment Alcohol intake: current Alcohol intake frequency: a few times a week Alcohol type: beer and wine Patient Tobacco Use Status: Current everyday Tobacco user Tobacco use type: Cigarette Cigarettes Per Day: 4 Years Smoked: 20 e-Cigarette/Vaping Use: Never Used Second Hand Smoke Exposure: Yes Substance Use Type: Marijuana service: No Current occupational status: employed 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 Current occupational exposures/hazards: No Sexual orientation: Straight/Heterosexual Cognitive needs: No Hearing needs: No Vision needs: No Female Reproductive History Menstrual Age of Menarche: 11 Review of Systems Musc Reports arthralgias Physical Exam Vital Signs: Last Vital Signs Pulse 59 05/16/24 13:29 BP 126/80 05/16/24 13:29 Pulse Ox 99 05/16/24 13:29 Oxygen Delivery Method Room Air 05/16/24 13:29 BMI result Body Mass Index 33.9 Const General: cooperative, healthy appearing and comfortable Nutritional Appearance: obese Limitations: no limitations HEENT Head: Yes normocephalic and Yes atraumatic Mouth: moist mucous membranes Resp Effort & Inspection: normal respiratory effort and able to speak in complete sentences Skin General skin exam: no rashes or lesions noted Extrem Other: Osteoarthritic changes of both hands Bilateral early squaring of the 1st CMC joints Left 1st CMC joint tenderness Negative Niki's test bilaterally Quality Reporting (2019) Adult ([facility] 138//) Smoking risk assessment performed?: Yes Patient Tobacco Use Status: Current everyday Tobacco user Assessment & Plan Assessment & Plan (1) Osteoarthritis of first carpometacarpal joint of left hand: Code(s): M18.12 - Unilateral primary osteoarthritis of first carpometacarpal joint, left hand Category: Medical Qualifiers: Osteoarthritis type: primary Qualified Code(s): M18.12 - Unilateral primary osteoarthritis of first carpometacarpal joint, left hand Plan: 39-year-old female presents for evaluation of left hand pain. 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 She mentions history of fracture of her left hand and wrist 1-2 years ago. Her x-rays in 2021 did not show a fracture. Patient has been taking Tylenol and ibuprofen without much relief. Advised patient to try Voltaren gel, I prescribed her a thumb spica splint. Advised patient to use it as much as possible throughout the day to rest her thumb. Advised patient to go back to her hand surgeon to consider an injection if there is no improvement Follow-up with Rheumatology as needed Plan I spent 22 minutes reviewing patient's chart, evaluating patient, counseling patient and documenting in the chart Medications: New [thumb spica spl] wear nightly and as much as possible throughout the day 1 ea 0RF M18.12 - Unilateral primary osteoarthritis of first carpometacarpal joint, left hand Coding Level of Care Code New Pt Level 3 (74398) Diagnoses Primary osteoarthritis of first carpometacarpal joint of left hand M18.12 Osteoarthritis type: primary
[2024-05-16 13:29] VITALS: BP 126/80; PULSE 59; O2SAT 99; BMI 33.9
== END 2024-05-16 13:50 | disposition home or self-care (01) ==
PROVIDERS: PCP Internal Medicine; Visit Provider Student in an Organized Health Care Education/Training Program
DX: M18.12 Unilateral primary osteoarthritis of first carpometacarpal joint, left hand (principal)
CPT/HCPCS: 99203

== ENCOUNTER → 2024-05-16 12:53 | Outpatient (BNVA) | payer OTHER, SELFPAY | PROVIDERS: PCP Internal Medicine; Visit Provider Student in an Organized Health Care Education/Training Program | DX: M18.12 Unilateral primary osteoarthritis of first carpometacarpal joint, left hand (principal) | CPT/HCPCS: 99202 ==

== ENCOUNTER 2024-10-05 12:59 | Emergency (ER) | payer OTHER, SELFPAY ==
--- NOTE | ~2024-10-05 | XR_ITS ---
EXAMINATION: XR ANKLE, RIGHT CLINICAL INFORMATION: fall twisted ankle COMPARISON: None available. TECHNIQUE: AP, lateral, and mortise views of the right ankle. FINDINGS: No fracture, dislocation, or suspicious bone lesion. Normal alignment. The ankle mortise is intact. The talar dome is normal. The subtalar joints and calcaneus appear normal. There is a tiny dorsal calcaneal spur. No evidence of ankle joint effusion. Soft tissues demonstrate minimal lateral swelling. XR/XR ankle RT min 3V IMPRESSION: No acute bony abnormality. Mild lateral soft tissue swelling. Electronically signed by: Colt Fermin MD 10/05/2024 01:36 PM EDT
--- NOTE | ~2024-10-05 | CT_ITS ---
EXAMINATION: CT CERVICAL SPINE WITHOUT IV CONTRAST HISTORY: fall posterior head strike. TECHNIQUE: Helical CT of the cervical spine was performed per standard departmental protocol. Coronal and sagittal reformatted images were also evaluated. One or more of the following techniques was used for dose reduction: Automated exposure control, adjustment of the mA and/or kV according to patient size, use of iterative reconstruction technique. DLP: 436 mGy-cm COMPARISON: There are no prior studies available for comparison. FINDINGS: CERVICAL SPINE: The vertebral bodies maintain normal height without evidence of fracture or subluxation. There is mild reversal of the normal cervical lordosis which may be due to muscle spasm. There is mild degenerative disc disease at the C5-6 level with disc space narrowing and osteophyte formation. Evaluation for disc pathology is limited by lack of intrathecal contrast material. BRAIN: The visualized portion of the brain is unremarkable. SINUSES: The visualized paranasal sinuses, mastoid air cells and middle ear cavities are unremarkable. LUNG APICES: The visualized lung apices are clear. SOFT TISSUES: The visualized paraspinal soft tissues are unremarkable. CT/CT cervical spine wo IV con IMPRESSION: Mild reversal of the normal cervical lordosis which may be due to muscle spasm. No evidence of fracture of the cervical spine. Electronically signed by: Venkatesh Bhakta MD 10/05/2024 02:09 PM EDT
--- NOTE | ~2024-10-05 | XR_ITS ---
EXAMINATION: XR FOOT, RIGHT CLINICAL INFORMATION: fall foot injury COMPARISON: None available. TECHNIQUE: AP, lateral, and oblique views of the right foot. FINDINGS: No fracture, dislocation, or suspicious bone lesion. Normal bone mineralization. Normal alignment. Joint spaces are preserved. No significant arthropathy. Normal plantar arch. Soft tissues appear normal. XR/XR foot RT min 3V IMPRESSION: Normal right foot. Electronically signed by: Colt Fermin MD 10/05/2024 01:38 PM EDT
--- NOTE | ~2024-10-05 | CT_ITS ---
EXAMINATION: CT HEAD WITHOUT IV CONTRAST HISTORY: fall post head strike w/ lac. TECHNIQUE: Unenhanced helical CT of the head was performed per standard departmental protocol. Coronal and sagittal reformats of the head were also evaluated. One or more of the following techniques was used for dose reduction: Automated exposure control, adjustment of the mA and/or kV according to patient size, use of iterative reconstruction technique. DLP: 648 mGy-cm COMPARISON: Comparison is made with the prior examination dated 11/17/2015. FINDINGS: BRAIN: The brain parenchyma is unremarkable. There is normal motley/white differentiation. The ventricular system is normal in size and configuration. There is no mass effect or midline shift. No intra- or extra-axial fluid collections are identified. SINUSES: The visualized paranasal sinuses are clear. The mastoid air cells and middle ear cavities are well pneumatized. ORBITS: The visualized orbits are unremarkable. BONES/SOFT TISSUES: The extracranial soft tissues are unremarkable. The calvarium is intact. No suspicious lytic or sclerotic lesions. CT/CT head/brain wo IV con IMPRESSION: No acute intracranial abnormality. Electronically signed by: Venkatesh Bhakta MD 10/05/2024 02:03 PM EDT
[2024-10-05 13:12] VITALS: BP 116/72; PULSE 95; RESP 20; TEMP 36.4; O2SAT 98; BMI 33.8
--- NOTE | 2024-10-05 13:12 | ED.GENADULT ---
HPI - General Adult General Chief complaint: Fall Stated complaint: Head Strike from Fall Time Seen by Provider: 10/05/24 21:20 Source: patient Limitations: no limitations History of Present Illness ED Provider: Claudia Ghotra PA-C HPI narrative: 39-year-old female presents with head injury. Patient states she was standing on a counter top, cleaning her cabinets, she slipped, falling off the cabinet striking her head, in twisting the right ankle. There was no loss consciousness, the patient does not use a blood thinner. Tetanus is up-to-date. Related Data Previous Rx's ?Medication ?Instructions ?Recorded albuterol sulfate 1.25 mg/3 mL 1.25 mg (3 mL) inhalation QID PRN 11/23/23 solution for nebulization shortness of breath or wheezing 30 days #75 mL clonazepam 0.5 mg tablet 0.25 mg (1/2 x 0.5 mg) PO BEDTIME 11/23/23 30 days #30 tabs diphenhydramine HCl 25 mg capsule 25 mg PO BEDTIME PRN itching #10 11/23/23 (Benadryl) caps acetaminophen 650 mg 650 mg PO Q8H PRN fever or pain 01/19/24 tablet,extended release (Tylenol 8 #30 tabs Hour) nicotine (polacrilex) 4 mg gum 4 mg buccal Q2H PRN nicotine 01/19/24 cravings 25 days #100 ea cholecalciferol (vitamin D3) 50 50 mcg PO DAILY 90 days #90 caps 04/19/24 mcg (2,000 unit) capsule cyclobenzaprine 10 mg tablet 10 mg PO BID 30 days #60 tabs 04/19/24 escitalopram oxalate 5 mg tablet 5 mg PO DAILY 90 days #90 tabs 04/19/24 lactulose 10 gram/15 mL oral 10 g (15 mL) PO BEDTIME PRN 04/19/24 solution constipation 30 days #237 mL omeprazole 40 mg capsule,delayed 40 mg PO DAILY #30 caps 04/19/24 release selenium sulfide 1 % shampoo 1 appl topical BEDTIME 7 days #207 04/19/24 (Dandruff Shampoo (selenium mL sulfide)) Ventolin HFA 90 mcg/actuation 2 puff inhalation Q6H PRN 05/09/24 aerosol inhaler (albuterol sulfate) shortness of breath or wheezing 30 days #18 grams thumb spica spl #1 ea 05/16/24 ibuprofen 800 mg tablet 800 mg PO Q8H PRN pain 90 days 05/29/24 #270 tabs nebulizers (AeroEclipse II #1 ea 05/29/24 Nebulizer) ketorolac 10 mg tablet 10 mg PO Q6H PRN pain #20 tabs 10/05/24 methocarbamol 750 mg tablet 750 mg PO Q8H PRN pain, moderate 10/05/24 #10 tabs Allergies Allergy/AdvReac Type Severity Reaction Status Date / Time No Known Allergies Allergy Verified 10/05/24 13:15 [No Known Allergies*] Review of Systems Review of Systems: Yes all other systems are reviewed and are negative Constitutional: Constitutional: Denies fatigue, Denies fever(s) and Reports headache(s) ENT: Denies dizziness, Reports headache(s) and Denies neck pain Gastrointestinal: Gastrointestinal: Denies nausea and Denies vomiting Musculoskeletal: Musculoskeletal: Reports arthralgias, Reports joint swelling and Denies neck pain Neurologic: Denies dizziness and Reports headache(s) Endocrine: Endocrine: Denies fatigue [facility] Past Medical History Attestation statement: The following information was validated with the patient. Medical History Hypovitaminosis D Immunization due Hair loss Mild persistent asthma GERD (gastroesophageal reflux disease) Mild asthma Ankle pain Smoker Obese Chronic fatigue Insomnia Muscle spasm Depression with anxiety Surgical History History of section Family History Family History Father Lung cancer Liver cancer Mother Diabetes Brother Aortic heart murmur Maternal Aunt Uterine cancer Breast cancer Social History Social History Housing: Apartment Alcohol intake: current Alcohol intake frequency: a few times a week Alcohol type: beer and wine Patient Tobacco Use Status: Current everyday Tobacco user Tobacco use type: Cigarette Cigarettes Per Day: 4 Years Smoked: 20 e-Cigarette/Vaping Use: Never Used Second Hand Smoke Exposure: Yes Substance Use Type: Marijuana Advance Directives: No Advance Directives Information Provided: No service: No Current occupational status: employed 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 Current occupational exposures/hazards: No Sexual orientation: Straight/Heterosexual Cognitive needs: No Hearing needs: No Vision needs: No Physical Exam ED Vital Signs: Vital Signs - 24 hr 10/05/24 13:12 10/05/24 18:14 Temperature 97.6 F Pulse Rate 95 70 Respiratory Rate 20 16 Blood Pressure 116/72 145/88 H Pulse Oximetry 98 98 Oxygen Delivery Method Room Air Room Air BMI result Body Mass Index 33.8 Const Other: Alert, 6 cm linear laceration noted over posterior scalp, minimally bleeding, deep to subcu Orientation/consciousness: patient oriented x3 Resp Effort & Inspection: normal respiratory effort Cardio Other: normal peripheral perfusion Skin Other: warm dry no rash Neuro General: patient oriented x3, gait normal, no focal motor deficits and CN's II-XI intact bilaterally Extrem Other: swelling and developing ecchymosis noted over lateral right ankle, patient is ambulatory, able to flex and extend the ankle Psych Other: calm cooperative Course Course Course Narrative: This is a Rapid Medical Examination (RME) performed by Jennifer Marie PA-C in triage. Full HPI, ROS, assessment and treatment plan per primary provider in the Main ED. Hx: 39 yo F here for eval s/p slip and fall, causing her to twist her right ankle and hit posterior head. no thinners. no LOC. able to ambulate/ bear weight on RLE. PE/vitals: tearful, laceration to posterior head, no active bleeding, difficult to fully eval in triage d/t coagulated blood/hair. dressed w/ guaze. noted swelling/ abrasion to right lateral malleolus, strong dt pulse. Plan: imaging, tylenol given in triage. Medications Administered Discontinued Medications Generic Name Dose Route Start Last Admin Trade Name Freq PRN Reason Stop Dose Admin Acetaminophen 975 mg 10/05/24 13:17 10/05/24 13:20 Acetaminophen 325 Mg Tablet PO 10/05/24 13:18 975 mg ONCE ONE Administration Ibuprofen 600 mg 10/05/24 18:11 10/05/24 18:15 Ibuprofen 600 Mg Tablet PO 10/05/24 18:12 600 mg ONCE ONE Administration Ketorolac Tromethamine 15 mg 10/05/24 22:25 10/05/24 22:29 Ketorolac Tromethamine 15 Mg/Ml Vial IM 10/05/24 22:26 15 mg ONCE ONE Administration Procedures Laceration Laceration 1: Site: scalp Size (cm): 6 Description: linear Depth: simple, single layer Local Anesthetic: lidocaine 1% and with epi Amount of anesthesia used (mL): 10 Pre-repair: irrigated extensively Skin layer closed with: other ( 13 chavez used) Medical Decision Making Medical Decision Making MDM Narrative: 39-year-old female presents with head injury. Patient states she was standing on a counter top, cleaning her cabinets, she slipped, falling off the cabinet striking her head, in twisting the right ankle. There was no loss consciousness, the patient does not use a blood thinner. Tetanus is up-to-date. no chronic issues History: Per patient I have considered the following differential diagnoses: Intracranial hemorrhage, cervical spine injury, fracture, dislocation, sprain Plan: Imaging and labs were obtained from triage, no acute abnormality. We will place the patient in an Aircast and crutches for an ankle sprain. The laceration of the scalp we christiano l require simple repair. I have independently reviewed the following tests: Labs:No leukocytosis, not anemic, not CT brain: CT/CT head/brain wo IV con IMPRESSION: No acute intracranial abnormality. CT cervical spine: RDER #: [id number] CT/CT cervical spine wo IV con IMPRESSION: Mild reversal of the normal cervical lordosis which may be due to muscle spasm. No evidence of fracture of the cervical spine. X-ray right foot: XR/XR foot RT min 3V IMPRESSION: Normal right foot. X-ray right ankle: XR/XR ankle RT min 3V IMPRESSION: No acute bony abnormality. Mild lateral soft tissue swelling. Discharge Plan Discharge Clinical Impression: Right ankle sprain, Laceration of scalp Patient Disposition: Home, Self-Care Instructions: Ankle Sprain (ED), Crutch Instructions (ED), Laceration (ED), Ankle Stirrup Splint (ED), P.R.I.C.E. Treatment (ED) Additional Instructions: the CT scan of your brain and cervical spine were negative for acute injury. You did not sustain a fracture or dislocation of the right ankle, you have a sprain. See home care instructions. Use the ketorolac as needed for pain, this is an anti-inflammatory, take it with food. Use the methocarbamol as needed for further pain, this is a muscle relaxant, it will cause drowsiness do not drive or operate machinery while taking this medication. You sustained a laceration of the scalp, 13 chavez were used to repair the wound. They can be removed in 7-10 days. Prescriptions: New ketorolac 10 mg tablet 10 mg PO Q6H PRN (Reason: pain) Qty: 20 0RF Rx Instructions: maximum total duration of 5 days from all oral, intranasal, or parenteral formulations. The patient received an intramuscular dose of Toradol here in the emergency room. methocarbamol 750 mg tablet 750 mg PO Q8H PRN (Reason: pain, moderate) Qty: 10 0RF No Action albuterol sulfate [Ventolin HFA] 90 mcg/actuation HFA aerosol inhaler 2 puff inhalation Q6H PRN (Reason: shortness of breath or wheezing) 30 Days Qty: 18 2RF ibuprofen 800 mg tablet 800 mg PO Q8H PRN (Reason: pain) 90 Days Qty: 270 1RF (DME) AeroEclipse II Nebulizer Misc See Rx Instructions .Route Qty: 1 0RF Rx Instructions: As directed clonazepam 0.5 mg tablet 0.25 mg PO BEDTIME 30 Days Qty: 30 0RF Rx Instructions: administer 30 minutes before bedtime albuterol sulfate 1.25 mg/3 mL solution for nebulization 1.25 mg inhalation QID PRN (Reason: shortness of breath or wheezing) 30 Days Qty: 75 1RF diphenhydramine HCl [Benadryl] 25 mg capsule 25 mg PO BEDTIME PRN (Reason: itching) Qty: 10 0RF acetaminophen [Tylenol 8 Hour] 650 mg tablet extended release 650 mg PO Q8H PRN (Reason: fever or pain) Qty: 30 0RF nicotine (polacrilex) 4 mg gum 4 mg buccal Q2H PRN (Reason: nicotine cravings) 25 Days Qty: 100 0RF (DME) thumb spica spl See Rx Instructions .Route .MEDSUPPLY Qty: 1 0RF Rx Instructions: wear nightly and as much as possible throughout the day cholecalciferol (vitamin D3) 50 mcg (2,000 unit) capsule 50 mcg PO DAILY 90 Days Qty: 90 3RF cyclobenzaprine 10 mg tablet 10 mg PO BID 30 Days Qty: 60 2RF escitalopram oxalate 5 mg tablet 5 mg PO DAILY 90 Days Qty: 90 1RF omeprazole 40 mg capsule,delayed release(DR/EC) 40 mg PO DAILY Qty: 30 6RF lactulose 10 gram/15 mL solution 10 g PO BEDTIME PRN (Reason: constipation) 30 Days Qty: 237 2RF Dandruff Shampoo (selenium) 1 % shampoo 1 appl topical BEDTIME 7 Days Qty: 207 1RF Rx Instructions: massage into affected area; leave on for 10 mins ; rinse off thoroughly Stand Alone Forms: Work/School Release Interventions: ED Discharge Assessment Last Done: 10/05/24 22:51 Discharge Date/Time: 10/05/24 22:51 Print Language: Indian
[2024-10-05] MEDS: Acetaminophen 325 MG TABLET 975 MG PO (13:20)
--- NOTE | 2024-10-05 15:15 | PC.NURSE ---
Patient knocking on triage door, demanding a bed, asking EDT Tiffany in Uruguayan when she can be seen, that she needs a bed because she has an emergency . Explained to patient that the department is busy today, we are unsure when she will get a bed inside the department. Patient starts cursing in Belizean at this RN and Tiffany EDT, walking away from triage w/ steady gait.
[2024-10-05 18:14] VITALS: BP 145/88; PULSE 70; RESP 16; O2SAT 98
[2024-10-05] MEDS: Ibuprofen 600 MG TABLET PO (18:15)
--- NOTE | 2024-10-05 20:27 | PC.NURSE ---
Patient observed charging into ED department demanding a bed to registration and triage tech Castro. Patient screaming in Armenian at registration staff, calling everyone bitches in Armenian. Security called, patient allowed to stay in pit hunter while waiting for bed. kitchen lead Lucía made aware.
--- NOTE | 2024-10-05 20:46 | PC.NURSE ---
Patient moved from [facility] to ED 27. Awaiting ED provider evaluation.
[2024-10-05] MEDS: Ketorolac Tromethamine 15 MG/ML VIAL IM (22:29)
[2024-10-05 22:51] VITALS: BP 145/88; PULSE 70; RESP 16; TEMP 36.8; O2SAT 98
== END 2024-10-05 22:51 | disposition home or self-care (01) ==
PROVIDERS: Emergency Provider Emergency Medicine; PCP Internal Medicine
DX: S01.01XA Laceration without foreign body of scalp, initial encounter (principal); S93.401A Sprain of unspecified ligament of right ankle, initial encounter; R51.9 Headache, unspecified; M54.2 Cervicalgia; M79.671 Pain in right foot; W17.89XA Other fall from one level to another, initial encounter; Y93.E9 Activity, other interior property and clothing maintenance; Y92.000 Kitchen of unspecified non-institutional (private) residence as the place of occurrence of the external cause; Y99.8 Other external cause status; F17.210 Nicotine dependence, cigarettes, uncomplicated
CPT/HCPCS: 12002; 70450; 72125; 73610; 73630; 96372; 99283; 99284; J1885

== ENCOUNTER → 2024-10-05 13:17 | Outpatient (BNV) | payer OTHER, SELFPAY | PROVIDERS: PCP Internal Medicine; Visit Provider Radiology Diagnostic Radiology | DX: S09.90XA Unspecified injury of head, initial encounter (principal); S93.401A Sprain of unspecified ligament of right ankle, initial encounter; S99.921A Unspecified injury of right foot, initial encounter; W19.XXXA Unspecified fall, initial encounter | CPT/HCPCS: 70450; 72125; 73610; 73630 ==

== ENCOUNTER 2024-10-18 15:32 | Outpatient (AMB) | payer OTHER, SELFPAY ==
--- NOTE | 2024-10-18 15:44 | A.OFFPC_ITS ---
Vital Signs 10/18/24 15:45 Height 5 ft Weight 173 lb BMI 33.8 BP 112/80 Blood Pressure Location Lt brachial Position Sitting Intake Visit Reasons: depression Intake Note: Patient here for a follow up [facility] Punch Operator Required: No Accompanied by: Child Allergies No Known Allergies (No Known Allergies*) Allergy (Verified 10/18/24 15:51) Medication List - Last Reconciled 10/18/24 by Roxanne Alejandro MD acetaminophen ER (Tylenol 8 Hour) 650 mg PO Q8H PRN albuterol sulfate 1.25 mg (3 mL) inhalation QID PRN 30 days cholecalciferol (vitamin D3) 50 mcg PO DAILY 90 days clonazepam 0.25 mg (1/2 x 0.5 mg) PO BEDTIME 30 days cyclobenzaprine 10 mg PO BID 30 days diphenhydramine HCl (Benadryl) 25 mg PO BEDTIME PRN escitalopram oxalate 5 mg PO DAILY 90 days ibuprofen 800 mg PO Q8H PRN 90 days ketorolac 10 mg PO Q6H PRN lactulose 10 grams (15 mL) PO BEDTIME PRN 30 days methocarbamol 750 mg PO Q8H PRN nebulizers (AeroEclipse II Nebulizer) As directed nicotine (polacrilex) 4 mg buccal Q2H PRN 25 days omeprazole 40 mg PO DAILY selenium sulfide 1% (Dandruff Shampoo (selenium sulfide)) 1 appl topical BEDTIME 7 days [thumb spica spl wear nightly and as much as possible throughout the day] Ventolin HFA 90 mcg/actuation (albuterol sulfate) 2 puffs inhalation Q6H PRN 30 days NS Tobacco use date assessed: 10/18/24 Dental Screening Dental Screen Date: 10/18/24 Did you have a dental visit in the last 12 months?: Yes Did you have a dental problem in the last 6 months where you did not have access to dental care?: No Was dental information given to patient?: Patient has dentist HPI HPI Comments History of Present Illness Details The patient is a 39-year-old female presenting with a follow-up after hospital discharge. She fell backwards and hit her head and is today for removal of 13 chavez in head. She has a history of depression with anxiety, currently managed with citalopram. She also experiences constipation, treated with lactulose, and gastroesophageal reflux disease, managed with omeprazole. The patient continues to smoke, which is a concern for her health. [facility] Medical History (Updated 10/18/24 @ 16:07 by Roxanne Alejandro MD) Hypovitaminosis D Immunization due Hair loss Mild persistent asthma GERD (gastroesophageal reflux disease) Mild asthma Ankle pain Smoker Obese Chronic fatigue Insomnia Muscle spasm Depression with anxiety Surgical History History of section Family History Father Lung cancer Liver cancer Mother Diabetes Brother Aortic heart murmur Maternal Aunt Uterine cancer Breast cancer Social History Housing: Apartment Alcohol intake: current Alcohol intake frequency: a few times a week Alcohol type: beer and wine Patient Tobacco Use Status: Current everyday Tobacco user Tobacco use type: Cigarette Cigarettes Per Day: 4 Years Smoked: 20 e-Cigarette/Vaping Use: Never Used Second Hand Smoke Exposure: Yes Substance Use Type: Marijuana service: No Current occupational status: employed 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 1. Little interest or pleasure in doing things: not at all 2. Feeling down, depressed, or hopeless: several days 3. Trouble falling or staying asleep, or sleeping too much: several days 4. Feeling tired or having little energy: not at all 5. Poor appetite or overeating: not at all 6. Feeling bad about yourself - or that you are a failure or have let yourself or your family down: not at all 7. Trouble concentrating on things, such as reading the newspaper or watching television: not at all 8. Moving or speaking so slowly that other people could have noticed. Or the opposite - being so fidgety or restless that you have been moving around a lot more than usual: not at all 9. Thoughts that you would be better off or of hurting yourself in some way: not at all Total score: 2 Source: Developed by Drs. Venkatesh Nueñz, Dana King, Srinivasan Win and colleagues, with an educational raissa from [employer]. Thrive Questionnaire Date Thrive assessed: 10/18/24 I am a: Patient What is your living situation today?: I choose not to answer this question Within the past 12 months, did the food you bought not last and you didn't have the money to get more?: I choose not to answer this question Within the past 12 months, did you worry whether your food would run out before you got money to buy more?: I choose not to answer this question Do you have trouble paying for medicines?: I choose not to answer this question Do you have trouble getting transportation to medical appointments?: I choose not to answer this question Do you have trouble paying your heating and electricity bill?: I choose not to answer this question Do you have trouble taking care of your child, family member or friend?: I choose not to answer this question Do you have trouble with day-to-day activities such as bathing, preparing meals, shopping, managing finances, etc.?: No Are you interested in more education?: Yes Please select the resources that you would like help with: Housing/Residential Currently or been in a relationship where the following occur: No concerns reported THRIVE Score: 0 AUDIT C Alcohol Use Questionnaire (AUDIT-C) 1. How often do you have a drink containing alcohol?: Monthly or less 2. How many drinks containing alcohol do you have on a typical day when you are drinking?: 1 or 2 3. How often do you have six or more drinks on one occasion?: Never Total Score: 1 IVONNE-7 AMB Questionnaire IVONNE-7 Date IVONNE - 7 assessed: 10/18/24 Feeling nervous, anxious, or on edge: 1 = Several days Not being able to stop or control worryin = Not at all Worrying too much about different things: 1 = Several days Trouble relaxin = Several days Being so restless that it is hard to sit still: 0 = Not at all Becoming easily annoyed or irritable: 1 = Several days Feeling afraid as if something awful might happen: 0 = Not at all Total IVONNE-7 score (0-4 normal; 5-9 mild; 10-14 moderate; 15-21 severe): 4 Source: Developed by Drs. Venkatesh Nuñez, Dana King, Srinivasan Win and colleagues, with an educational raissa from [employer]. Review of Systems Const All systems reviewed & are unremarkable except as noted in HPI and below Card Denies chest pain at rest, Denies chest pain with activity, Denies edema, Denies irregular heart rhythm, Denies claudication, Denies dyspnea, Denies dyspnea on exertion, Denies orthopnea, Denies paroxysmal nocturnal dyspnea and Denies slow heart rate Resp Denies cough, Denies dyspnea and Denies dyspnea on exertion GI Denies abdominal pain, Denies change in bowel habits, Denies excessive flatus, Denies nausea and Denies vomiting Denies urinary incontinence, Denies urinary hesitancy and Denies urinary urgency Musc Denies atrophy, Denies deformity and Denies limited range of motion Physical exam (Primary Care) Vital Signs: Last Vital Signs BP 112/80 10/18/24 15:45 BMI result Body Mass Index 33.8 Tobacco/Smoking Status: Tobacco use Status Tobacco use date assessed 01/19/24 10/15/24 09:50 Patient Tobacco Use Status Current everyday Tobacco 10/15/24 09:50 Tobacco use type Cigarette 10/15/24 09:50 e-Cigarette/Vaping Use Never Used 10/15/24 09:50 Thrive Assessment: Date of Thrive Assessment Date Thrive assessed 04/19/24 10/15/24 09:50 Currently or been in a relationship where the following occur: No concerns reported Neck Neck: Yes normal visual inspection and Yes supple Resp Effort & Inspection: normal respiratory effort Auscultation: clear to auscultation bilaterally Cardio Jugular venous distension: no JVD Rate: regular rate Rhythm: regular rhythm Heart sounds: S1 normal heart sound present and S2 normal heart sound present Extrem General: Yes full ROM Coding Level of Care Code Est Pt Level 4 (23381) Complex EM visit Add On G2211 Diagnoses Hospital discharge follow-up Z09 Encounter for staple removal Z48.02 Mild major depression F32.0 Anxiety F41.9 Gastroesophageal reflux disease, unspecified whether esophagitis present K21.9 Esophagitis presence: esophagitis presence not specified Chronic idiopathic constipation K59.04 Time Spent (min) 20 Assessment & Plan Assessment & Plan (1) Hospital discharge follow-up: Code(s): Z09 - Encounter for follow-up examination after completed treatment for conditions other than malignant neoplasm Category: Medical (2) Encounter for staple removal: Code(s): Z48.02 - Encounter for removal of sutures Category: Medical (3) Mild major depression: Code(s): F32.0 - Major depressive disorder, single episode, mild Category: Medical (4) Anxiety: Code(s): F41.9 - Anxiety disorder, unspecified Category: Medical (5) GERD (gastroesophageal reflux disease): Code(s): K21.9 - Gastro-esophageal reflux disease without esophagitis Category: Medical Qualifiers: Esophagitis presence: esophagitis presence not specified Qualified Code(s): K21.9 - Gastro-esophageal reflux disease without esophagitis (6) Chronic idiopathic constipation: Code(s): K59.04 - Chronic idiopathic constipation Category: Medical Plan The patient will continue her current medications, including citalopram for depression with anxiety, lactulose for constipation, and omeprazole for gastroesophageal reflux disease. Smoking cessation was discussed as a critical component of her health management plan. Follow-up appointments will be scheduled to monitor her progress and adjust treatment as necessary. Patient was informed and verbally consented to the use of an ambient scribe for clinic note documentation during this visit. Medications: New naproxen 500 mg PO BID PRN 60 tabs 0RF pain 30 days Refilled escitalopram oxalate 5 mg PO DAILY 90 tabs 1RF 90 days Ventolin HFA 90 mcg/actuation (albuterol sulfate) 2 puffs inhalation Q6H PRN 18 grams 2RF shortness of breath or wheezing 30 days NS omeprazole 40 mg PO DAILY 30 caps 6RF lactulose 10 grams (15 mL) PO BEDTIME PRN 237 mL 2RF constipation 30 days K59.04 - Chronic idiopathic constipation Discontinued ketorolac maximum total duration of 5 days from all oral, intranasal, or parenteral formulations. The patient received an intramuscular dose of Toradol here in the emergency room. Discontinued Reason: Patient Completed Course 10 mg PO Q6H PRN 20 tabs 0RF pain ibuprofen Discontinued Reason: Patient Completed Course 800 mg PO Q8H 90 days PRN 270 tabs 1RF pain
[2024-10-18 15:45] VITALS: BP 112/80; BMI 33.8
--- OUTSIDE RECORDS SUMMARY | 2024-10-18 16:43 | XMS_ITS | Encounter Summary ---
Author Organization [employer] Address [address] [place] [address] Care Team Providers Care Story Editor Name Role Phone Unavailable Primary Care Provider Unavailabl e Reason for Visit * Reason Onset Date Comments case back on Tuesday03/18/2023 Encounter Details Date Type Department Care Team (Late st Contact Info) Description 03/18/2023 Telephone [facility] [address] [place] [address] John Hodges DMD [address] [place] [address] case back on Tuesday Social History Tobacco Use Types Packs/Day Years Used Date Smoking Tobacco: Former Cigarettes Alcohol Use Standard Drinks/Week Comments Yes 0 (1 standard drink = 0.6 oz pur e alcohol) Comments Unknown Sex and Gender Information Value Date Recorded Sex Assigned at Female 03/01/2022 10:25 AM EDT Legal Sex Female 10:25 AM EDT Gender Identity Female 03/01/2022 10:25 AM EDT Sexual Orientation Straight 03/01/2022 10 :25 AM EDT documented as of this encounter Miscellaneous Notes * Telephone Encounter - John Hodges DMD - 03/21/2023 8:16 AM EST Please don't schedule patient until I get her case back from [facility] . I will inform the frontdesk when I get the case. Thanks * Telephone Encounter - Poly Santana - 03/18/2023 3:22 PM EST Case that was sent back for delivery today will not be in office until Tuesday. They thought it would be possible for today but Tuesday is the soonest they can have it ready DR documented in this encounter Plan of Treatment Not on file documented as of this encounter Visit Diagnoses Not on filedocumented in this encounter
== END 2024-10-18 16:04 | disposition home or self-care (01) ==
LOC: HO.HMCH 15:32
PROVIDERS: PCP Internal Medicine; Visit Provider Internal Medicine
DX: K21.9 Gastro-esophageal reflux disease without esophagitis (principal); F32.0 Major depressive disorder, single episode, mild; K59.04 Chronic idiopathic constipation; F41.9 Anxiety disorder, unspecified; Z09 Encounter for follow-up examination after completed treatment for conditions other than malignant neoplasm; Z48.02 Encounter for removal of sutures

== ENCOUNTER → 2024-10-18 15:32 | Outpatient (BNVA) | payer OTHER, SELFPAY | PROVIDERS: PCP Internal Medicine; Visit Provider Internal Medicine | DX: F32.0 Major depressive disorder, single episode, mild (principal); F41.9 Anxiety disorder, unspecified; F17.210 Nicotine dependence, cigarettes, uncomplicated; K21.9 Gastro-esophageal reflux disease without esophagitis; K59.04 Chronic idiopathic constipation; Z79.899 Other long term (current) drug therapy; Z48.02 Encounter for removal of sutures | CPT/HCPCS: 99212 ==

== ENCOUNTER 2025-01-09 15:18 | Outpatient (REF) | payer OTHER, SELFPAY | END 2025-01-09 15:19 | disposition home or self-care (01) | LOC: HO.US 15:18 | PROVIDERS: PCP Internal Medicine; Visit Provider Obstetrics & Gynecology | DX: Z13.89 Encounter for screening for other disorder (principal) ==

== ENCOUNTER 2025-01-18 13:46 | Outpatient (REF) | payer OTHER, SELFPAY ==
--- NOTE | ~2025-01-18 | US_ITS ---
EXAMINATION: US PELVIS TRANSABDOMINAL AND TRANSVAGINAL HISTORY: D25.9 - Leiomyoma of uterus, unspecified COMPARISON: Comparison is made with the prior examination dated 10/31/2023. TECHNIQUE: Transabdominal and endovaginal real-time 2D motley-scale ultrasound was performed. FINDINGS: Uterus: The uterus is normal in size, measuring 9.3 x 4.5 x 5.7 cm. Myometrium has a normal echotexture. Again seen is an anterior fibroid measuring 1.9 x 2.0 x 1.9 cm (previously 2.6 x 1.9 x 1.9 cm), and an anterior fibroid measuring 1.0 x 1.1 x 0.7 cm (previously 0.9 x 1.1 x 1.2 cm). Endometrium: The endometrial stripe measures 11 mm in thickness. Right ovary: The right ovary measures 3.7 x 2.6 x 2.8 cm. There is a 2.0 x 1.7 x 1.6 cm cyst. Left ovary: The left ovary measures 2.5 x 7 x 2.5 cm. The left ovary is normal in size and echotexture. Pelvic fluid: none. US/US pelvic and transvaginal IMPRESSION: 1. Uterine fibroids without significant change. 2. 2.0 x 1.7 x 1.6 cm right ovarian cyst. Electronically signed by: Venkatesh Bhakta MD 01/18/2025 03:21 PM EDT
--- OUTSIDE RECORDS SUMMARY | 2025-01-18 13:54 | XMS_ITS | Encounter Summary ---
Author Organization [employer] Address [address] [place] [address] Care Team Providers Care Resp Ther Name Role Phone Unavailable Primary Care Provider Unavailabl e Reason for Visit * Reason Onset Date Comments case back on Tuesday03/18/2023 Encounter Details Date Type Department Care Team (Late st Contact Info) Description 03/18/2023 Telephone [facility] [address] [place] [address] John Hodges DMD [address] [place] [address] case back on Tuesday Social History Tobacco [...]
--- OUTSIDE RECORDS SUMMARY | 2025-01-18 13:54 | XMS_ITS | Encounter Summary ---
Author Organization [employer] [facility] Address [address] [place] [address] Care Team Providers Care Delivery Mgr Name Role Phone Unavailable Primary Care Provider Unavailabl e Encounter Details Date Type Department Care Team (Latest Contact Info) Description 02/12/2021 Abstract [facility] CONVERSIONS Dental, Provider, DDS Social History Tobacco Use Types Packs/Day Years Used Date Smoking Tobacco: Never Assessed Comments Unknown Sex and Gender Information Value Date Recorded Sex Assigned at Female 03/01/2022 10:25 AM EDT Legal Sex Female 10:25 AM EDT Gender Identity Female 03/01/2022 10:25 AM EDT Sexual Orientation Straight 03/01/2022 10 :25 AM EDT documented as of this encounter Plan of Treatment Not on file documented as of this encounter Visit Diagnoses Not on filedocumented in this encounter
--- OUTSIDE RECORDS SUMMARY | 2025-01-18 13:54 | XMS_ITS | Clinical Summary ---
Author Organization [employer] Address [address] [place] [address] Care Team Providers Care Bioinformatics Specialist Name Role Phone Unavailable Primary Care Provider Unavailabl e Allergies Active Allergy Reactions Criticality Noted Date Comments Cat Dander 04/18/2024 Dog Epithelium 04/18/2024 Medications Ventolin HFA 108 (90 Base) MCG/ACT inhaler INHALE 2 PUFFS BY MOUTH EVERY 6 HOURS NEEDED FOR SHORTNESS OF BREATH OR WHEEZING FOR 30 DAYS 3 Active cholecalciferol (Vitamin D-3) 50 MCG (1999 UT) capsule Take by mouth in the morning. 3 Active clonazePAM (KlonoPIN) 0.5 MG tablet TAKE 1/2 TABLET ORALLY AT BEDTIME FOR 30 DAYS ADMINISTER 30 MINUTES BEFORE BEDTIME 3 Active omeprazole (PriLOSEC) [address] capsule Take 40 mg by mouth in the morning. 3 Active cyclobenzaprine (Flexeril) 10 MG tablet Take 1 tablet by mouth 2 times daily. 4 Active Banophen 25 MG capsule Take 25 mg by mouth if needed at bedtime. 4 Active escitalopram (Lexapro) 5 MG tablet Take 5 mg by mouth Once per day. 4 Active ibuprofen 800 MG tablet Take 800 mg by mouth every 6 (six) hours if needed. 4 Active nicotine polacrilex (Nicorette) 4 MG gum CHEW 4 MG BUCCALLY EVERY 2 HOURS NEEDED FOR NICOTINE CRAVINGS FOR 25 DAYS 4 Active Active Problems Problem Noted Date Diagnosed Date Asthma 05/17/2013 Encounters Date Type Department Care Team Description 11/09/2024 9:30 AM EDT Office Visit [facility] [address] [place] [address] John Hodges, RASHEEDA from Last 3 Months Social History Tobacco Use Types Packs/Day Years Used Date Smoking Tobacco: Former Cigarettes Tobacco Cessation:Counseling Given: Not Answered Alcohol Use Standard Drinks/Week Comments Yes 0 (1 standard drink = 0.6 oz pur e alcohol) Comments Unknown Sex and Gender Information Value Date Recorded Sex Assigned at Female 03/01/2022 10:25 AM EDT Legal Sex Female 10:25 AM EDT Gender Identity Female 03/01/2022 10:25 AM EDT Sexual Orientation Straight 03/01/2022 10 :25 AM EDT Last Filed Vital Signs Vital Sign Reading Time Taken Comments Blood Pressure 138/76 08/03/2024 1:18 PM EDT Pulse 78 08/03/2024 1:18 PM EDT Temperature - - Respiratory Rate - - Oxygen Saturation - - Inhaled Oxygen Concentration - - Weight - - Height - - Body Mass Index - - Plan of Treatment Health Maintenance Due Date Last Done Comments Depression Screening 1985 HIV Screening 1985 SDOH Screening 1985 Disability Screening 1985 Alcohol/Substance Use Screening 1997 Family Planning (PISQ) 2000 HPV Vaccines (1 - 3-dose series) 2000 Hepatitis C Screening 2003 Pap Smear 2006 Pneumococcal Vaccine: Pediatrics (0 to 5 Years) and At-Risk Patients (6 to 49) Years (2 of 2 - PCV) 02/08/2015 02/08/2014 Cervical Cancer Screening 2015 HPV/Cotest 2015 Hepatitis B Vaccines (2 of 3 - 19+ 3-dose series) 07/31/2021 07/03/2021 Dental Prophylaxis 08/14/2021 02/12/2021, 0 05/17/2019, 11/13/2018, Additional history exists Dental Oral Exam 12/24/2024 06/25/2024, , 08/17/2018, Additional history exists COVID-19 Vaccine ( season) 2024 07/07/2021, 12/12/2020, 11/14/2020 Influenza Vaccine (#1) 2024 02/08/2014 Dental X-Ray: Bitewings 06/26/2025 06/25/19 25, 02/12/2021, 08/17/2018, Additional history exists Tobacco Screening 11/09/2025 11/09/2024 Dental X-Ray: Full Mouth 06/26/2027 025, 08/17/2018, 03/06/2013, Additional history exists DTaP/Tdap/Td Vaccines (5 - Td or Tdap) 03/13/2032 03/13/2022, 07/03/2021, 01/18/2018, Additional history exists Zoster Vaccines (1 of 2) 2035 RSV Patients and Patients Aged 60 years or older (1 - 1-dose 75+ series) 2060 HIB Vaccines Aged Out No longer eligi ble based on patient's age to complete this topic Hepatitis A Vaccines Aged Out No long er eligible based on patient's age to complete this topic IPV Vaccines Aged Out No longer eligi ble based on patient's age to complete this topic Meningococcal B Vaccine Aged Out No l onger eligible based on patient's age to complete this topic Meningococcal Vaccine Aged Out No zhanna vivian eligible based on patient's age to complete this topic RSV under 20 months Aged Out No longe r eligible based on patient's age to complete this topic Rotavirus Vaccines Aged Out No longer eligible based on patient's age to complete this topic Procedures Procedure Name Priority Date/Time Associated Diagnosis Comments DENTURE ADJUSTMENT Routine 11/09/2024 9: 30 AM EDT INTRAORAL - COMPLETE SERIES OF RADIOGRAPHIC IMAGES Routine 06/25/2024 9:00 AM EST PERIODIC ORAL EVALUATION - ESTABLISHED PATIENT Routine 06/25/2024 9:00 AM EST PROPHYLAXIS - ADULT Routine 02/12/2021 1 2:00 AM EDT from Last 3 Months or Most Recently Relevant to Health Maintenance Insurance [facility] MEDICAID STAND ADULT
--- OUTSIDE RECORDS SUMMARY | 2025-01-18 13:54 | XMS_ITS | Encounter Summary ---
Author Organization [employer] [facility] Address [address] [place] [address] Care Team Providers Care Conformal Pad Former Name Role Phone Unavailable Primary Care Provider Unavailabl e Encounter Details Date Type Department Care Team (Latest Contact Info) Description 11/13/2018 Abstract C CONVERSIONS Dental, Provider, DDS Social History Tobacco [...]
== END 2025-01-18 13:47 | disposition home or self-care (01) ==
LOC: HO.US 13:46
PROVIDERS: PCP Internal Medicine; Visit Provider Obstetrics & Gynecology
DX: D25.9 Leiomyoma of uterus, unspecified (principal)
CPT/HCPCS: 76830; 76856

== ENCOUNTER → 2025-01-18 13:48 | Outpatient (BNV) | payer OTHER, SELFPAY | PROVIDERS: PCP Internal Medicine; Visit Provider Radiology Diagnostic Radiology | DX: D25.9 Leiomyoma of uterus, unspecified (principal); N83.201 Unspecified ovarian cyst, right side | CPT/HCPCS: 76830; 76856 ==

== ENCOUNTER 2025-01-23 13:46 | Outpatient (AMB) | payer OTHER, SELFPAY ==
--- NOTE | 2025-01-23 13:47 | A.OFFVIS_ITS ---
Intake Visit Reasons: Ultrasound results Animal Control Supervisor Required: Yes Animal Control Supervisor Language: General Service Technician Services: Animal Control Supervisor Present (in person) Animal Control Supervisor Name: HAI Carrillo Information Interpreted: non-clinical & clinical Chemical Manager: Chemical Manager Present (HAI Carrillo) Accompanied by: Self / Same As Patient Allergies No Known Allergies (No Known Allergies*) Allergy (Verified 10/18/24 15:51) HPI Comments Details: Presenting for ultrasound follow-up regarding uterine myomas seen on previous ultrasound done in 05/26. The patient has no symptoms no pelvic pain, pressure or abnormal uterine bleeding 01/18/2025 pelvic ultrasound showed the following: Uterus: The uterus is normal in size, measuring 9.3 x 4.5 x 5.7 cm. Myometrium has a normal echotexture. Again seen is an anterior fibroid measuring 1.9 x 2.0 x 1.9 cm (previously 2.6 x 1.9 x 1.9 cm), and an anterior fibroid measuring 1.0 x 1.1 x 0.7 cm (previously 0.9 x 1.1 x 1.2 cm). Endometrium: The endometrial stripe measures 11 mm in thickness. Right ovary: The right ovary measures 3.7 x 2.6 x 2.8 cm. There is a 2.0 x 1.7 x 1.6 cm cyst. Left ovary: The left ovary measures 2.5 x 7 x 2.5 cm. The left ovary is normal in size and echotexture. Pelvic fluid: none. US/US pelvic and transvaginal IMPRESSION: 1. Uterine fibroids without significant change. 2. 2.0 x 1.7 x 1.6 cm right ovarian cyst. [facility] Medical History Hypovitaminosis D Immunization due Hair loss Mild persistent asthma GERD (gastroesophageal reflux disease) Mild asthma Ankle pain Smoker Obese Chronic fatigue Insomnia Muscle spasm Depression with anxiety Surgical History History of section Family History Father Lung cancer Liver cancer Mother Diabetes Brother Aortic heart murmur Maternal Aunt Uterine cancer Breast cancer Social History Housing: Apartment Alcohol intake: current Alcohol intake frequency: a few times a week Alcohol type: beer and wine Patient Tobacco Use Status: Current everyday Tobacco user Tobacco use type: Cigarette Cigarettes Per Day: 4 Years Smoked: 20 e-Cigarette/Vaping Use: Never Used Second Hand Smoke Exposure: Yes Substance Use Type: Marijuana service: No Current occupational status: employed 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 Current occupational exposures/hazards: No Sexual orientation: Straight/Heterosexual Cognitive needs: No Hearing needs: No Vision needs: No Female Reproductive History Menstrual Age of Menarche: 11 Review of Systems Const All systems reviewed & are unremarkable except as noted in HPI and below Reports as per HPI and Reports no additional complaints GI Reports no additional complaints Reports no additional complaints Assessment & Plan Assessment & Plan (1) Uterine myoma: Code(s): D25.9 - Leiomyoma of uterus, unspecified Category: Medical Plan: Discussed with the patient the findings on pelvic ultrasound & the risk of myosarcoma; in addition reviewed with the patient that malignancy and pre malignancy cannot be ruled out without hysterectomy for pathological evaluation ; furthermore, explained to the patient the limitation of pelvic ultrasound and endometrial biopsy in the setting. Discussed with the patient the options of treatment including expectant management versus hysterectomy; the pros and cons, risks benefits of each approach were discussed with the patient including the fact that in cases of myosarcoma, surgical treatment can lead to early diagnosis and positively affects the prognosis; after further discussion, the patient decided to proceed with expectant management. Will repeat pelvic ultrasound periodically. Instructions given to patient to call in case any of the following occurs: pressure symptoms, abnormal uterine bleeding, pelvic pain; and to schedule a 12 months pelvic ultrasound (order placed) and a follow-up appointment . All questions answered, the patient verbalized understanding and agreed with the plan . Orders: Orders US pelvic and transvaginal 12 Months D25.9 - Leiomyoma of uterus, unspecified Coding Level of Care Code Est Pt Level 3 (14043) Diagnoses Uterine myoma D25.9
== END 2025-01-23 13:58 | disposition home or self-care (01) ==
LOC: HO.HWS 13:46
PROVIDERS: PCP Internal Medicine; Visit Provider Obstetrics & Gynecology
DX: D25.9 Leiomyoma of uterus, unspecified (principal)
CPT/HCPCS: 99213

== ENCOUNTER → 2025-01-23 13:46 | Outpatient (BNVA) | payer OTHER, SELFPAY | PROVIDERS: PCP Internal Medicine; Visit Provider Obstetrics & Gynecology | DX: D25.9 Leiomyoma of uterus, unspecified (principal) | CPT/HCPCS: 99212 ==

== ENCOUNTER 2025-02-14 09:59 | Outpatient (AMB) | payer OTHER, SELFPAY ==
[2025-02-14 10:18] VITALS: BP 138/78; PULSE 76; O2SAT 97; BMI 33.8
--- NOTE | 2025-02-14 10:18 | AM.OFFWIN_ITS ---
Intake Vital Signs 02/14/25 10:18 Height 5 ft Weight 173 lb BMI 33.8 BP 138/78 Blood Pressure Location Lt brachial Position Sitting Pulse 76 Pulse Source Pulse Oximeter Pulse Oximetry (%) 97 Intake Visit Reasons: EP-lt knee swollen/pain, c-spine pain from a fall Intake Note: pt is here for left knee pain, back pain due to fall yesterday in shower at home Patient Tobacco Use Status: Current everyday Tobacco user Armored Transport Service Manager Required: Yes Armored Transport Service Manager Language: [place] Islander Allergies No Known Allergies (No Known Allergies*) Allergy (Verified 02/14/25 10:18) Medication List - Last Reconciled 02/14/25 by Natalie Jalloh NP acetaminophen ER (Tylenol 8 Hour) 650 mg PO Q8H PRN albuterol sulfate 1.25 mg (3 mL) inhalation QID PRN 30 days cholecalciferol (vitamin D3) 50 mcg PO DAILY 90 days clonazepam 0.25 mg (1/2 x 0.5 mg) PO BEDTIME 30 days cyclobenzaprine 10 mg PO BID 30 days diclofenac sodium 1% (Voltaren Arthritis Pain) 2 grams topical BID escitalopram oxalate 5 mg PO DAILY 90 days lactulose 10 grams (15 mL) PO BEDTIME PRN 30 days naproxen 500 mg PO BID PRN 30 days nebulizers (AeroEclipse II Nebulizer) As directed omeprazole 40 mg PO DAILY [thumb spica spl wear nightly and as much as possible throughout the day] Ventolin HFA 90 mcg/actuation (albuterol sulfate) 2 puffs inhalation Q6H PRN 30 days NS Do you need a note to return to daycare/school/sports/work: Yes HPI HPI Comments History of Present Illness Details 39 y/o Female patient who presents to [facility] walk in clinic with c/o neck and left knee pain after she fell last night in the Tub. Pt slipped inside her Bathtub and landed on her Back and Knee. Reports pain with ROM. She has not taken any OTC pain relief. Denies Head strike or LOC. [facility] Medical History (Updated 02/14/25 @ 10:46 by Natalie Jalloh NP) Cervicalgia Contusion of knee, left Hypovitaminosis D Immunization due Hair loss Mild persistent asthma GERD (gastroesophageal reflux disease) Mild asthma Ankle pain Smoker Obese Chronic fatigue Insomnia Muscle spasm Depression with anxiety Surgical History History of section Family History Father Lung cancer Liver cancer Mother Diabetes Brother Aortic heart murmur Maternal Aunt Uterine cancer Breast cancer Social History Housing: Apartment Alcohol intake: current Alcohol intake frequency: a few times a week Alcohol type: beer and wine Patient Tobacco Use Status: Current everyday Tobacco user Tobacco use type: Cigarette Cigarettes Per Day: 4 Years Smoked: 20 e-Cigarette/Vaping Use: Never Used Second Hand Smoke Exposure: Yes Substance Use Type: Marijuana service: No Current occupational status: employed 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 Current occupational exposures/hazards: No Sexual orientation: Straight/Heterosexual Cognitive needs: No Hearing needs: No Vision needs: No Female Reproductive History Menstrual Age of Menarche: 11 Review of Systems Const All systems reviewed & are unremarkable except as noted in HPI and below Physical Exam Vital Signs: Last Vital Signs Pulse 76 02/14/25 10:18 BP 138/78 02/14/25 10:18 Pulse Ox 97 02/14/25 10:18 BMI result Body Mass Index 33.8 Const General: no acute distress; No comfortable Nutritional Appearance: well nourished Orientation/consciousness: patient oriented x3 Back/Spine/Pelvis Cervical Spine: cervical muscular tenderness, pain with cervical ROM, cervical spasm and Cervical spine tenderness Neuro General: patient oriented x3, gait normal and moves all extremities Extrem Left lower extremity: knee Details: normal to inspection, tenderness Location: of the patella Details: medially and normal ROM Psych Speech and movement: Normal speech and movement present Assessment & Plan Assessment & Plan (1) Contusion of knee, left: Code(s): S80.02XA - Contusion of left knee, initial encounter Qualifiers: Encounter type: initial encounter Qualified Code(s): S80.02XA - Contusion of left knee, initial encounter Plan: Ordered NSAIDs and Acetaminophen for pain relief. Rest joint, apply Heat/Ice (2) Cervicalgia: Code(s): M54.2 - Cervicalgia Plan: Ordered NSAIDs and Acetaminophen for pain relief. Rest joint, apply Heat/Ice Medications: New diclofenac sodium 1% (Voltaren Arthritis Pain) 2 grams topical BID 100 grams 0RF M54.2 - Cervicalgia, S80.02XA - Contusion of left knee, initial encounter Refilled acetaminophen ER (Tylenol 8 Hour) 650 mg PO Q8H PRN 30 tabs 0RF pain M54.2 - Cervicalgia, S80.02XA - Contusion of left knee, initial encounter naproxen 500 mg PO BID PRN 60 tabs 0RF pain 30 days M54.2 - Cervicalgia, S80.02XA - Contusion of left knee, initial encounter Coding Level of Care Code Est Pt Level 4 (30697) Diagnoses Contusion of left knee, initial encounter S80.02XA Encounter type: initial encounter Cervicalgia M54.2 Time Spent (min) 20
--- OUTSIDE RECORDS SUMMARY | 2025-02-14 11:48 | XMS_ITS | Clinical Summary ---
Author Organization [employer] Address [address] [facility] [address] [place] [address] Care Team Providers Care Running Instructor Name Role Phone Unavailable Primary Care Provider Unavailabl e Allergies Active Allergy Reactions Criticality Noted Date Comments Cat Dander 04/18/2024 Dog Epithelium 04/18/2024 Medications Ventolin HFA 108 (90 Base) MCG/ACT inhaler INHALE 2 PUFFS BY MOUTH EVERY 6 HOURS NEEDED FOR SHORTNESS OF BREATH OR WHEEZING FOR 30 DAYS 3 Active cholecalciferol (Vitamin D-3) 50 MCG (2000 UT) capsule Take by mouth in the [...] Problem Noted Date Diagnosed Date Asthma 05/17/2013 Social History Tobacco Use Types Packs/Day Years [...] Procedure Name Priority Date/Time Associated Diagnosis Comments INTRAORAL - COMPLETE SERIES OF RADIOGRAPHIC IMAGES Routine 06/25/2024 9:00 AM EST PERIODIC ORAL EVALUATION - ESTABLISHED PATIENT Routine 06/25/2024 9:00 AM EST PROPHYLAXIS - ADULT Routine 02/12/2021 1 2:00 AM EDT from Last 3 Months or Most Recently Relevant to Health Maintenance Insurance [facility] AD[place]
--- OUTSIDE RECORDS SUMMARY | 2025-02-14 11:48 | XMS_ITS | Encounter Summary ---
Author Organization [employer] Address [address] [facility] [address] [place] [address] Care Team Providers Care Capacitor Repairer Name Role Phone Unavailable Primary Care Provider Unavailabl e Reason for Visit * Reason Onset Date Comments case back on Tuesday03/18/2023 Encounter Details Date Type Department Care Team (Late st Contact Info) Description 03/18/2023 Telephone [facility] ADULT DENTAL [address] [place] [address] John Hodges DMD [address] [place] [address] case back on Tuesday Social History Tobacco [...]
--- OUTSIDE RECORDS SUMMARY | 2025-02-14 11:48 | XMS_ITS | Encounter Summary ---
Author Organization [employer] [facility] Address [address] [place] [address] Care Team Providers Care Hearing Aid Repair Technician Name Role Phone Unavailable Primary Care Provider [...]
--- OUTSIDE RECORDS SUMMARY | 2025-02-14 11:48 | XMS_ITS | Encounter Summary ---
Author Organization [employer] [facility] Address [address] [place] [address] [address]t [address] [place] [id number] Care Team Providers Care Appeals Specialist Name Role Phone Unavailable Primary Care [...]
== END 2025-02-14 11:03 | disposition home or self-care (01) ==
PROVIDERS: PCP Internal Medicine; Visit Provider Nurse Practitioner Family
DX: S80.02XA Contusion of left knee, initial encounter (principal); M54.2 Cervicalgia

== ENCOUNTER → 2025-02-14 09:59 | Outpatient (BNVA) | payer OTHER, SELFPAY | PROVIDERS: PCP Internal Medicine; Visit Provider Nurse Practitioner Family | DX: S80.02XA Contusion of left knee, initial encounter (principal); M54.2 Cervicalgia; W18.2XXA Fall in (into) shower or empty bathtub, initial encounter; Y93.E1 Activity, personal bathing and showering; Y92.9 Unspecified place or not applicable; Y99.9 Unspecified external cause status | CPT/HCPCS: 99212 ==

== ENCOUNTER 2025-03-04 08:48 | Outpatient (AMB) | payer OTHER, SELFPAY ==
[2025-03-04 08:59] VITALS: BP 118/68; PULSE 73; TEMP 36.9; O2SAT 98; BMI 34.2
--- NOTE | 2025-03-04 08:59 | AM.OFFWIN_ITS ---
Intake Vital Signs 03/04/25 08:59 Height 5 ft Weight 175 lb BMI 34.2 BP 118/68 Blood Pressure Location Lt brachial Position Sitting Pulse 73 Pulse Source Pulse Oximeter Temp 98.4 F Temp Source Oral Pulse Oximetry (%) 98 Oxygen Delivery Method Room Air Intake Visit Reasons: EP Irritated left eye Intake Note: pt presents with LT eye irritation,itching, gritty feeling and swelling beginning yesterday Patient Tobacco Use Status: Current everyday Tobacco user Allergies No Known Allergies (No Known Allergies*) Allergy (Verified 03/04/25 09:01) Do you need a note to return to daycare/school/sports/work: Yes HPI HPI Comments History of Present Illness Details 39 y/o Female patient presents to the [facility] clinic with c/o left eye itching, burning, and swelling since yesterday evening. Reports waking up this morning with the left upper eyelid swollen. She also reports sinus congestion and pressure. Denies eye pain, vision changes, or light sensitivity. Denies any URI symptoms. [facility] Medical History (Updated 03/04/25 @ 09:35 by Natalie Jalloh NP) Allergic conjunctivitis Cervicalgia Contusion of knee, left Hypovitaminosis D Immunization due Hair loss Mild persistent asthma GERD (gastroesophageal reflux disease) Mild asthma Ankle pain Smoker Obese Chronic fatigue Insomnia Muscle spasm Depression with anxiety Surgical History History of section Family History Father Lung cancer Liver cancer Mother Diabetes Brother Aortic heart murmur Maternal Aunt Uterine cancer Breast cancer Social History Housing: Apartment Alcohol intake: current Alcohol intake frequency: a few times a week Alcohol type: beer and wine Patient Tobacco Use Status: Current everyday Tobacco user Tobacco use type: Cigarette Cigarettes Per Day: 4 Years Smoked: 20 e-Cigarette/Vaping Use: Never Used Second Hand Smoke Exposure: Yes Substance Use Type: Marijuana service: No Current occupational status: employed 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 Current occupational exposures/hazards: No Sexual orientation: Straight/Heterosexual Cognitive needs: No Hearing needs: No Vision needs: No Female Reproductive History Menstrual Age of Menarche: 11 Physical Exam Vital Signs: Last Vital Signs Temp 98.4 F 03/04/25 08:59 Pulse 73 03/04/25 08:59 BP 118/68 03/04/25 08:59 Pulse Ox 98 03/04/25 08:59 Oxygen Delivery Method Room Air 03/04/25 08:59 BMI result Body Mass Index 34.2 Const General: no acute distress Nutritional Appearance: overweight Orientation/consciousness: patient oriented x3 HEENT Head: Yes normocephalic Ears: external ears normal and TM abnormal with fluid behind the TM bilateral General nose exam: Nasal discharge present Mouth: moist mucous membranes Eyes Eyelids: Yes eyelid abnormality (Swelling and redness left upperlid) Conjunctivae: conjunctivae normal Pupils: Equal, round and reactive pupils present EOM: EOMs intact bilaterally Direct Ophthalmoscopy: normal light reflex Neuro General: patient oriented x3 Cranial nerves: Yes Equal, round and reactive pupils present Assessment & Plan Assessment & Plan (1) Allergic conjunctivitis: Code(s): H10.10 - Acute atopic conjunctivitis, unspecified eye Qualifiers: Laterality: left Qualified Code(s): H10.12 - Acute atopic conjunctivitis, left eye Plan: Likely Allergic conjunctivitis with possible sinus congestion Differential: Early Hordeolum (stye), sinus-related periorbital edema, contact irritation. Recommend cool compresses to affected eye 3?4 times daily OTC antihistamine (e.g., Cetirizine or Loratadine) daily for allergic symptoms Fluticasone nasal spray for sinus congestion Avoid rubbing or touching the eye Return to clinic if swelling worsens, redness spreads, or vision changes develop Medications: New ketotifen fumarate 0.025%(0.035%) (Zaditor) Administer at least 8 hours apart. 1 drp ophthalmic (eye) BID 5 mL 0RF Coding Level of Care Code Est Pt Level 4 (50670) Diagnoses Allergic conjunctivitis of left eye H10.12 Laterality: left Time Spent (min) 20
--- OUTSIDE RECORDS SUMMARY | 2025-03-04 09:25 | XMS_ITS | Encounter Summary ---
Author Organization [employer] [facility] Address [address] [place] [address] [address] [place] [address] Care Team Providers Care Unit Assistant Name Role Phone Unavailable Primary Care Provider [...]
--- OUTSIDE RECORDS SUMMARY | 2025-03-04 09:25 | XMS_ITS | Clinical Summary ---
Author Organization [employer] Address [address] [facility] [address] [place] [address] Care Team Providers Care Registered Route Associate Name Role Phone Unavailable Primary Care Provider [...]
--- OUTSIDE RECORDS SUMMARY | 2025-03-04 09:25 | XMS_ITS | Encounter Summary ---
Author Organization [employer] Address [address] [facility] [address] [place] [address] Care Team Providers Care Kitchen Worker Name Role Phone Unavailable Primary Care Provider Unavailabl e Reason for Visit * Reason Onset Date Comments case back on Tuesday03/18/2023 Encounter Details Date Type Department Care Team (Late st Contact Info) Description 03/18/2023 Telephone [facility] ADULT DENTAL [address] [place] [address] John Hodges DMD [address] [place] [address] case back on Tuesday Social History Tobacco [...]
--- OUTSIDE RECORDS SUMMARY | 2025-03-04 09:25 | XMS_ITS | Encounter Summary ---
Author Organization [employer] [facility] Address [address] [facility] [address] [place] [address] Care Team Providers Care Healthcare Sales Representative Name Role Phone Unavailable Primary Care Provider [...]
== END 2025-03-04 10:02 | disposition home or self-care (01) ==
PROVIDERS: PCP Internal Medicine; Visit Provider Nurse Practitioner Family
DX: H10.12 Acute atopic conjunctivitis, left eye (principal)

== ENCOUNTER → 2025-03-04 08:48 | Outpatient (BNVA) | payer OTHER, SELFPAY | PROVIDERS: PCP Internal Medicine; Visit Provider Nurse Practitioner Family | DX: H10.12 Acute atopic conjunctivitis, left eye (principal) | CPT/HCPCS: 99212 ==

== ENCOUNTER 2025-04-23 14:53 | Outpatient (AMB) | payer OTHER, SELFPAY ==
[2025-04-23 15:14] VITALS: BP 138/72; PULSE 67; RESP 16; TEMP 36.3; O2SAT 98; BMI 33.9
--- NOTE | 2025-04-23 15:14 | MHC.PC.OV ---
Vital Signs 04/23/25 15:14 Height 5 ft Weight 173 lb 8 oz BMI 33.9 BP 138/72 Blood Pressure Location Lt brachial Position Sitting Respiration 16 Pulse 67 Pulse Source Pulse Oximeter Temp 97.3 F Temp Source Temporal Artery Scan Pulse Oximetry (%) 98 Oxygen Delivery Method Room Air Intake Visit Reasons: pe Intake Note: Patient here for a follow up Depression Pulverizer Feeder Required: No Accompanied by: Child Allergies No Known Allergies (No Known Allergies*) Allergy (Verified 04/23/25 15:49) Medication List - Last Reconciled 04/23/25 by Roxanne Alejandro MD acetaminophen ER (Tylenol 8 Hour) 650 mg PO Q8H PRN albuterol sulfate 1.25 mg (3 mL) inhalation QID PRN 30 days cholecalciferol (vitamin D3) 50 mcg PO DAILY 90 days clonazepam 0.25 mg (1/2 x 0.5 mg) PO BEDTIME 30 days cyclobenzaprine 10 mg PO BID 30 days diclofenac sodium 1% (Voltaren Arthritis Pain) 2 grams topical BID escitalopram oxalate 5 mg PO DAILY 90 days ketotifen fumarate 0.025%(0.035%) (Zaditor) 1 drp ophthalmic (eye) BID lactulose 10 grams (15 mL) PO BEDTIME PRN 30 days loratadine (Allergy Relief (loratadine)) 10 mg PO DAILY 90 days naproxen 500 mg PO BID PRN 30 days nebulizers (AeroEclipse II Nebulizer) As directed omeprazole 40 mg PO DAILY [thumb spica spl wear nightly and as much as possible throughout the day] Ventolin HFA 90 mcg/actuation (albuterol sulfate) 2 puffs inhalation Q6H PRN 30 days NS Tobacco use date assessed: 04/23/25 Dental Screening Dental Screen Date: 04/23/25 Did you have a dental visit in the last 12 months?: Yes Did you have a dental problem in the last 6 months where you did not have access to dental care?: No Was dental information given to patient?: Patient has dentist HPI HPI Comments History of Present Illness Details This is a 40-year-old female with allergic rhinitis and mild major depression that comes for her physical exam. Rhinitis has been on stable and I will refer her to an matrix drier tender. Depression also not well control and I will increase Lexapro. Mammogram ordered. Pap smear up-to-date. She is obese and was advised to do diet and exercise. She is a smoker and was advised to quit. [facility] Medical History Allergic conjunctivitis Cervicalgia Contusion of knee, left Hypovitaminosis D Immunization due Hair loss Mild persistent asthma GERD (gastroesophageal reflux disease) Mild asthma Ankle pain Smoker Obese Chronic fatigue Insomnia Muscle spasm Depression with anxiety Surgical History History of section Family History Father Lung cancer Liver cancer Mother Diabetes Brother Aortic heart murmur Maternal Aunt Uterine cancer Breast cancer Social History Housing: Apartment Alcohol intake: current Alcohol intake frequency: a few times a week Alcohol type: beer and wine Patient Tobacco Use Status: Current everyday Tobacco user Tobacco use type: Cigarette Cigarettes Per Day: 4 Years Smoked: 20 e-Cigarette/Vaping Use: Never Used Second Hand Smoke Exposure: Yes Substance Use Type: Marijuana service: No Current occupational status: employed 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 1. Little interest or pleasure in doing things: not at all 2. Feeling down, depressed, or hopeless: several days 3. Trouble falling or staying asleep, or sleeping too much: several days 4. Feeling tired or having little energy: several days 5. Poor appetite or overeating: several days 6. Feeling bad about yourself - or that you are a failure or have let yourself or your family down: several days 7. Trouble concentrating on things, such as reading the newspaper or watching television: not at all 8. Moving or speaking so slowly that other people could have noticed. Or the opposite - being so fidgety or restless that you have been moving around a lot more than usual: not at all 9. Thoughts that you would be better off or of hurting yourself in some way: several days Total score: 6 Depression Screening Interpretation: Positive Depression Screening Follow-up: Existing condition, In treatment and Follow-up Visit Requested Depression Screening Done: Yes 69063 - PHQ-9 Billing: Yes Source: Developed by Drs. Venkatesh Nuñez, Dana King, Srinivasan Wni and colleagues, with an educational raissa from [employer]. Thrive Questionnaire Date Thrive assessed: 04/23/25 I am a: Patient What is your living situation today?: I have a steady place to live Within the past 12 months, did the food you bought not last and you didn't have the money to get more?: Sometimes True Within the past 12 months, did you worry whether your food would run out before you got money to buy more?: Sometimes True Do you have trouble paying for medicines?: No Do you have trouble getting transportation to medical appointments?: No Do you have trouble paying your heating and electricity bill?: No Do you have trouble taking care of your child, family member or friend?: No Do you have trouble with day-to-day activities such as bathing, preparing meals, shopping, managing finances, etc.?: No Are you currently unemployed and looking for a job?: No Are you interested in more education?: No Please select the resources that you would like help with: None Currently or been in a relationship where the following occur: No concerns reported THRIVE Score: 2 AUDIT C Alcohol Use Questionnaire (AUDIT-C) 1. How often do you have a drink containing alcohol?: 4 or more times a week 2. How many drinks containing alcohol do you have on a typical day when you are drinking?: 3 or 4 3. How often do you have six or more drinks on one occasion?: Weekly Total Score: 8 IVONNE-7 AMB Questionnaire IVONNE-7 Date IVONNE - 7 assessed: 04/23/25 Feeling nervous, anxious, or on edge: 1 = Several days Not being able to stop or control worryin = Several days Worrying too much about different things: 1 = Several days Trouble relaxin = Several days Being so restless that it is hard to sit still: 0 = Not at all Becoming easily annoyed or irritable: 0 = Not at all Feeling afraid as if something awful might happen: 1 = Several days Total IVONNE-7 score (0-4 normal; 5-9 mild; 10-14 moderate; 15-21 severe): 5 Source: Developed by Drs. Venkatesh Nuñez, Dana King, Srinivasan Win and colleagues, with an educational raissa from [employer]. IVONNE-7 Assessment Billing IVONNE-7 Assessment Tool: IVONNE-7 Assessment 75059 Review of Systems Const All systems reviewed & are unremarkable except as noted in HPI and below Card Denies chest pain at rest, Denies chest pain with activity, Denies edema, Denies irregular heart rhythm, Denies claudication, Denies dyspnea, Denies dyspnea on exertion, Denies orthopnea, Denies paroxysmal nocturnal dyspnea and Denies slow heart rate Resp Denies cough, Denies dyspnea and Denies dyspnea on exertion GI Denies abdominal pain, Denies change in bowel habits, Denies excessive flatus, Denies nausea and Denies vomiting Physical exam (Primary Care) Vital Signs: Last Vital Signs Temp 97.3 F 04/23/25 15:14 Pulse 67 04/23/25 15:14 Resp 16 04/23/25 15:14 BP 138/72 04/23/25 15:14 Pulse Ox 98 04/23/25 15:14 Oxygen Delivery Method Room Air 04/23/25 15:14 BMI result Body Mass Index 33.9 BMI Assessment/Plan discussion: High BMI High, discussed plan: lifestyle, weight reduction, dietary and physical activity Tobacco/Smoking Status: Tobacco use Status Tobacco use date assessed 04/23/25 04/23/25 15:21 Patient Tobacco Use Status Current everyday Tobacco 04/23/25 15:21 Tobacco use type Cigarette 04/23/25 15:21 e-Cigarette/Vaping Use Never Used 04/23/25 15:21 Are you ready to quit: No Tobacco cessation counseling provided: Yes Items discussed: Nicotine replacement and QuitWorks Relapse Prevention: discussed the importance of a supportive environment, discussed extending NRT, discussed negative mood or depression after quitting, weight gain after smoking is common and discussed dietary, exercise and/or lifestyle changes Number of minutes spent counselin CPT code: 45128 - 4-10 Minutes PHQ-9: PHQ-9 Score PHQ-9: Total score 6 04/23/25 15:21 Depression Screening Interpretation: Positive Depression Screening Follow-up: Existing condition, In treatment and Follow-up Visit Requested Thrive Assessment: Date of Thrive Assessment Date Thrive assessed 04/23/25 04/23/25 15:21 Currently or been in a relationship where the following occur: No concerns reported [facility] Head: Yes normal to inspection, Yes normocephalic and Yes atraumatic Ears: external ears normal Eyes General: appearance normal, both eyes and all related structures Eyelids: Yes eyelids normal Conjunctivae: conjunctivae normal Neck Neck: Yes normal visual inspection and Yes supple Resp Effort & Inspection: normal respiratory effort Auscultation: clear to auscultation bilaterally Cardio Jugular venous distension: no JVD Rate: regular rate Rhythm: regular rhythm Heart sounds: S1 normal heart sound present and S2 normal heart sound present GI Inspection: Yes normal to inspection Palpation (GI): Soft to palpation and nontender Auscultation: normal bowel sounds Skin General skin exam: no rashes or lesions noted Neuro General: no focal motor deficits Extrem General: Yes full ROM Psych Appearance: grossly normal Coding Level of Care Code Est Pt Level 3 (82859) Est Pt Prev Care 40-64y(97110) Diagnoses Physical exam Z00.00 Allergic rhinitis J30.9 Mild major depression F32.0 Additional Codes PHQ-9 - 00722 - PHQ-9 Billing: Yes ([id number]) IVONNE-7 Assessment Billing - IVONNE-7 Assessment Tool: IVONNE-7 Assessment 97745 ([id number]) Vital Signs *Quality* - CPT code: 40671 - 4-10 Minutes ([id number]) Time Spent (min) 32 Assessment & Plan Assessment & Plan (1) Physical exam: Code(s): Z00.00 - Encounter for general adult medical examination without abnormal findings Category: Medical (2) Allergic rhinitis: Code(s): J30.9 - Allergic rhinitis, unspecified Category: Medical (3) Mild major depression: Code(s): F32.0 - Major depressive disorder, single episode, mild Category: Medical Plan Repeat physical exam in a year. Mammogram ordered. Start montelukast. Change loratadine to levo cetirizine. Referred to matrix drier tender. Orders: Orders MM tomosynthesis screening BI Today Z12.31 - Encounter for screening mammogram for malignant neoplasm of breast Comprehensive [place]. Panel Fast Today Z00.00 - Encounter for general adult medical examination without abnormal findings Lipid Panel Today E78.5 - Hyperlipidemia, unspecified, Z00.00 - Encounter for general adult medical examination without abnormal findings Referrals Allergy & Immunology Referral J30.9 - Allergic rhinitis, unspecified Medications: New escitalopram oxalate 10 mg PO DAILY 90 tabs 1RF 90 days montelukast 10 mg PO BEDTIME 90 tabs 1RF 90 days levocetirizine 5 mg PO DAILY PRN 90 tabs 1RF allergy symptoms 90 days famotidine 40 mg PO BID 180 tabs 1RF 90 days Refilled cyclobenzaprine 10 mg PO BID 60 tabs 2RF 30 days M62.838 - Other muscle spasm Discontinued escitalopram oxalate Discontinued Reason: Patient Completed Course 5 mg PO DAILY 90 days 90 tabs 1RF loratadine (Allergy Relief (loratadine)) Discontinued Reason: Patient Completed Course 10 mg PO DAILY 90 days 90 tabs 0RF
--- OUTSIDE RECORDS SUMMARY | 2025-04-23 16:09 | XMS_ITS | Encounter Summary ---
Author Organization [facility] [facility] Address [address] [place] [address] Care Team Providers Care All Around Patternmaker Name Role Phone Unavailable Primary Care Provider Unavailabl e Encounter Details Date Type Department Care Team (Latest Contact Info) Description 02/12/2021 Abstract [facility] CONVERSIONS Dental, Provider, DDS Social History Tobacco Use Types Packs/Day Years Used Date Smoking Tobacco: Never Assessed Comments Unknown Sex and Gender Information Value Date Recorded Sex Assigned at Female 03/01/2022 10:25 AM EDT Legal Sex Female 10:25 AM EDT Gender Identity Female 03/01/2022 10:25 AM EDT Sexual Orientation Straight 03/01/2022 10 :25 AM EDT documented as of this encounter Plan of Treatment Upcoming Encounters Date Type Department Care Team (Late st Contact Info) Description 06/05/2025 8:45 AM EST Office Visit [facility] ADULT DENTAL [address] [place] [address] Jerzy Campbellaris [address] [place] [address] documented as of this encounter Visit Diagnoses Not on filedocumented in this encounter
--- OUTSIDE RECORDS SUMMARY | 2025-04-23 16:09 | XMS_ITS | Encounter Summary ---
Author Organization [facility] Address [address] [facility] 7 [place] [address] Care Team Providers Care Entrepreneur Name Role Phone Unavailable Primary Care Provider Unavailabl e Encounter Details Date Type Department Care Team (Latest Contact Info) Description 11/13/2018 Abstract [facility] CONVERSIONS Dental, Provider, DDS Social History Tobacco [...] Description 06/05/2025 8:45 AM EST Office Visit [facility] ADULT DENTAL [address] [place] [address] Shannan Dixie [address] [place] [address] documented as of this encounter Visit Diagnoses Not on filedocumented in this encounter
--- OUTSIDE RECORDS SUMMARY | 2025-04-23 16:09 | XMS_ITS | Encounter Summary ---
Author Organization [employer] Address [address] [facility] [facility] [address] [place] [address] Care Team Providers Care Store Warehouse Associate Name Role Phone Unavailable Primary Care Provider Unavailabl e Reason for Visit * Reason Onset Date Comments case back on Tuesday03/18/2023 Encounter Details Date Type Department Care Team (Late st Contact Info) Description 03/18/2023 Telephone [facility] ADULT DENTAL [address] [place] [address] John Hodges DMD [address] [place] [address] case back on Tuesday Social History Tobacco [...] documented in this encounter Plan of Treatment Upcoming Encounters Date Type Department Care Team (Late st Contact Info) Description 06/05/2025 8:45 AM EST Office Visit [facility] ADULT DENTAL [address] [place] [address] Dixie Campbell [address] [place] [address] documented as of this encounter Visit Diagnoses Not on filedocumented in this encounter
--- OUTSIDE RECORDS SUMMARY | 2025-04-23 16:10 | XMS_ITS | Clinical Summary ---
Author Organization [employer] Address [address] [facility] [address] [place] [address] Care Team Providers Care Compactor Driver Name Role Phone Unavailable Primary Care Provider [...] Mass Index - - Plan of Treatment Upcoming Encounters Date Type Department Care Team (Late st Contact Info) Description 06/05/2025 8:45 AM EST Office Visit [facility] ADULT DENTAL [address] [place] [address] Shannan, Dixie [address] [place] [address] Health Maintenance Due Date Last Done Comments [...] 12/12/2020, 11/14/2020 Influenza Vaccine (#1) 2024 02/08/2014 Mammogram 2025 Dental X-Ray: Bitewings 06/26/2025 06/25/19 25, 02/12/2021, [...]
== END 2025-04-23 16:02 | disposition home or self-care (01) ==
LOC: HO.HMCH 14:54
PROVIDERS: PCP Internal Medicine; Visit Provider Internal Medicine
DX: Z00.00 Encounter for general adult medical examination without abnormal findings (principal); J30.9 Allergic rhinitis, unspecified; F32.0 Major depressive disorder, single episode, mild; F17.210 Nicotine dependence, cigarettes, uncomplicated; Z71.6 Tobacco abuse counseling

== ENCOUNTER → 2025-04-23 14:53 | Outpatient (BNVA) | payer OTHER, SELFPAY | PROVIDERS: PCP Internal Medicine; Visit Provider Internal Medicine | DX: Z00.00 Encounter for general adult medical examination without abnormal findings (principal); J30.9 Allergic rhinitis, unspecified; E78.5 Hyperlipidemia, unspecified; F32.0 Major depressive disorder, single episode, mild; Z13.31 Encounter for screening for depression; Z13.39 Encounter for screening examination for other mental health and behavioral disorders | CPT/HCPCS: 96127; 99396 ==